=== PATIENT | female | born 1965 | race African-American/Black ===

== ENCOUNTER → 2017-02-02 | Outpatient (CLI) | payer BC ==
[~2017-02-02] MED LIST: ALBUAER19 INH; AMOX500C3 PO; BENZ100C84 PO; BUPR-79 PO; CETI10TA99 PO; CYAN100048 INH; ESCI1TAB10 PO; FLUT0.15; OXYC-57 PO; PANT40TA PO; TRAZ100T29 PO; TRIATAB3 PO
[2017-02-02 11:15] LABS: ALT/SGPT 21 U/L (12-78); AST/SGOT 10 U/L (15-37); BLOOD UREA NITROGEN 16 mg/dl (7-18); BUN/CREATININE RATIO 18.8 (10-20); CALCIUM 8.2 mg/dl (8.5-10.1); CARBON DIOXIDE 28 mmol/L (21-32); CHLORIDE 109 mmol/L (98-107); CREATININE 0.85 mg/dl (0.60-1.20); GLUCOSE 77 mg/dl (70-99); POTASSIUM 3.5 mmol/L (3.5-5.1); SODIUM 144 mmol/L (136-145)
[2017-02-02 11:18] LABS: ALB/GLOB RATIO 0.9 (0.9-2); ALKALINE PHOSPHATASE 149 U/L (45-117)
[2017-02-02 12:00] LABS: ESTIMATED AVERAGE GLUCOSE 126 mg/dl; HA1C FLAG Normal (Normal)
== END | disposition home or self-care (01) ==
LOC: C.LABBC 08:21
PROVIDERS: ATTEND Physician Assistant
DX: R73.09 Other abnormal glucose (principal)

== ENCOUNTER → 2017-04-25 | Outpatient (CLI) | payer BC ==
[~2017-04-25] MED LIST changes: -OXYC-57 PO
--- NOTE | 2017-04-26 13:27 | MAMMOGRAPHY REPORT ---
BILATERAL DIGITAL SCREENING MAMMOGRAM TOMOSYNTHESIS WITH CAD: 04/25/2017 CLINICAL HISTORY: Routine screening. Patient has no complaints. TECHNIQUE: Breast tomosynthesis in addition to standard 2D mammography was performed. Current study was also evaluated with a Computer Aided Detection (CAD) system. COMPARISON: Comparison is made to exams dated: 03/28/2016 mammogram, 10/01/2014 mammogram, and 2012 mammogram - [facility]. BREAST COMPOSITION: There are scattered areas of fibroglandular density in both breasts. FINDINGS: No suspicious masses, calcifications, or areas of architectural distortion are noted in ei ther breast. There has been no significant interval change compared to prior exams. IMPRESSION: ACR BI-RADS CATEGORY 1: NEGATIVE There is no mammographic evidence of malignancy. A 1 year screening mammogram is recommended. The pa tient will receive written notification of the results. Approximately 10% of breast cancers are not detected with mammography. A negative mammographic report should not delay biopsy if a clinically suggestive mass is present. Isabelle Aranda M.D. ah/:04/25/2017 16:22:36 Ex Assistant/Program Director: Linnea CASH(Bertram)(Sarmad)(BD), [facility] letter sent: Normal 1/2 BI-RADS Code: ACR BI-RADS Category 1: Negative
== END | disposition home or self-care (01) ==
LOC: C.MAMM 15:14
PROVIDERS: ATTEND Obstetrics & Gynecology
DX: Z12.31 Encounter for screening mammogram for malignant neoplasm of breast (principal)

== ENCOUNTER → 2017-06-12 | Outpatient (CLI) | payer BC ==
[2017-06-12 10:02] LABS: ESTIMATED AVERAGE GLUCOSE 120 mg/dl; HA1C FLAG Normal (Normal)
[2017-06-12 10:12] LABS: ALT/SGPT 16 U/L (12-78); AST/SGOT 8 U/L (15-37); BLOOD UREA NITROGEN 11 mg/dl (7-18); BUN/CREATININE RATIO 13.7 (10-20); CALCIUM 8.2 mg/dl (8.5-10.1); CARBON DIOXIDE 29 mmol/L (21-32); CHLORIDE 109 mmol/L (98-107); CHOLESTEROL 151 mg/dl (0-200); CREATININE 0.81 mg/dl (0.60-1.20); GLUCOSE 80 mg/dl (70-99); POTASSIUM 3.6 mmol/L (3.5-5.1); SODIUM 140 mmol/L (136-145)
[2017-06-12 10:20] LABS: ALKALINE PHOSPHATASE 183 U/L (45-117); CHOLESTEROL/HDL RATIO 2.8; HDL CHOLESTEROL 54 mg/dl; LDL CHOLESTEROL CALCULATED 84 mg/dl; TRIGLYCERIDES 63 mg/dl (0-150); URIC ACID 3.6 mg/dl (2.6-7.2); VERY LOW DENSITY LIPOPROT CALC 13 mg/dl
[2017-06-12 10:53] LABS: LYME DISEASE AB IGG NEG (NEG); LYME DISEASE AB IGM NEG (NEG)
== END | disposition home or self-care (01) ==
LOC: C.LAB1850 08:17
PROVIDERS: ATTEND Internal Medicine
DX: R73.09 Other abnormal glucose (principal); R53.83 Other fatigue; E53.8 Deficiency of other specified B group vitamins; E55.9 Vitamin D deficiency, unspecified; F41.8 Other specified anxiety disorders; M25.562 Pain in left knee

== ENCOUNTER → 2017-07-29 | Outpatient (CLI) | payer BC | END | disposition home or self-care (01) | LOC: C.PAPS 14:02 | PROVIDERS: ATTEND Obstetrics & Gynecology | DX: Z01.419 Encounter for gynecological examination (general) (routine) without abnormal findings (principal) ==

== ENCOUNTER 2020-09-15 06:09 | Observation (INO) ==
--- NOTE | 2020-08-05 15:45 | PAT Medication Instructions ---
Medication Instructions Date of Service August 05, 2020 Home Medications Medication Instructions Recorded albuterol sulfate 90 mcg/actuation 1 puffs INH Q6H PRN #6.7 gm 02/26/20 aerosol inhaler cetirizine 10 mg tablet 10 mg PO QAM diclofenac sodium 1 % topical gel See Rx Instructions TOPICAL BID PRN fluticasone propionate 50 mcg/actuation nasal spray,suspension 2 sprays INTNAS QAM albuterol sulfate 90 mcg/actuation aerosol inhaler 1 puffs INH Q6H PRN sertraline 100 mg tablet 250 mg PO QAM biotin 5 mg PO QAM cyanocobalamin-cobamamide [B12] 1 randa SUBLINGUAL QAM dextroamphetamine-amphetamine [Adderall XR] 10 mg PO QAM ferrous fumarate-vitamin C [Iron with C] 1 tab PO QAM furosemide 40 mg PO QAM PRN lisinopril 20 mg PO QAM multivitamin 1 cap PO QAM pantoprazole 40 mg PO QAM DO NOT take the morning of surgery cetirizine 10 mg tablet 10 mg PO QAM diclofenac sodium 1 % topical gel See Rx Instructions TOPICAL BID PRN (do not put near sugical site) biotin 5 mg PO QAM cyanocobalamin-cobamamide [B12] 1 randa SUBLINGUAL QAM dextroamphetamine-amphetamine [Adderall XR] 10 mg PO QAM ferrous fumarate-vitamin C [Iron with C] 1 tab PO QAM furosemide 40 mg PO QAM PRN lisinopril 20 mg PO QAM multivitamin 1 cap PO QAM Take morning of surgery With a small sip of water, OTHERWISE NOTHING TO EAT OR DRINK AFTER MIDNIGHT: fluticasone propionate 50 mcg/actuation nasal spray,suspension 2 sprays INTNAS QAM albuterol sulfate 90 mcg/actuation aerosol inhaler 1 puffs INH Q6H PRN (if needed) sertraline 100 mg tablet 250 mg PO QAM pantoprazole 40 mg PO QAM Other Notes If you have any questions please call us at [phone] or [phone] or [phone] or [phone]
--- NOTE | 2020-08-08 13:14 | Anesthesiology Consultation ---
Date of Service August 08, 2020 Assessment & Plan (1) Encounter for pre-operative examination: COVID Status: As of 08/08 assessment, patient denies travel to endemic area, known exposure/sick contacts, or symptoms of COVID19. Patient instructed that they and their household members must follow strict social distancing guidelines, wear a mask in public and avoid travel for 14 days prior to surgery. Preoperative COVID19 testing to be completed prior to surgery per surgeon's a rrangements. Patient made aware to self-isolate as much as possible between COVID testing and surgery. Bariatric surgeon is in [facility], patient has a follow-up appt scheduled for 08/12. To get COVID-19 testing on 08/18, OK to proceed. Chart Review Chart Review: Acceptable Risk for Surgery and Patient seen in Pre Admission Testing Teaching & Discussion Instructed NPO after midnight before surgery, except medications with 15 cc of water. Medication instructions provided according to the PAT guidelines. History Surgery Operation Date: 08/25/20 07:00 Proposed Procedures p Left Total Knee Arthroplasty - Seth Shepard MD Operation Date: 09/29/20 07:00 Proposed Procedures p Total Knee Arthroplasty - Seth Shepard MD Height/Weight Height: 5 ft 8 in Weight: 117.9 kg Allergies Allergy/AdvReac Type Severity Reaction Status Date / Time Penicillins Allergy Mild UNKNOWN Verified 08/05/20 12:03 enalapril Allergy Unknown DYSPEPSIA Verified 07/14/20 07:07 nickel Allergy Blister Verified 08/05/20 12:04 metformin AdvReac Mild Diarrhea Verified 07/14/20 07:07 Medications Home Medications Medication Instructions Recorded Confirmed Last Taken cetirizine 10 mg tablet 10 mg PO QAM 04/29/19 08/05/20 Unknown diclofenac sodium 1 % topical gel See Rx Instructions TOPICAL BID 06/25/19 08/05/20 Unknown PRN gm fluticasone propionate 50 2 sprays INTNAS QAM gm 06/25/19 08/05/20 Unknown mcg/actuation nasal spray,suspension albuterol sulfate 90 mcg/actuation 1 puffs INH Q6H PRN #6.7 gm 02/26/20 08/05/20 Unknown aerosol inhaler sertraline 100 mg tablet 250 mg PO QAM tab 07/24/20 08/05/20 Unknown biotin 5 mg PO QAM 08/05/20 08/05/20 Unknown cyanocobalamin-cobamamide [B12] 1 randa SUBLINGUAL QAM 08/05/20 08/05/20 Unknown dextroamphetamine-amphetamine 10 mg PO QAM 08/05/20 08/05/20 Unknown [Adderall XR] ferrous fumarate-vitamin C [Iron 1 tab PO QAM 08/05/20 08/05/20 Unknown with C] furosemide 40 mg PO QAM PRN 08/05/20 08/05/20 Unknown lisinopril 20 mg PO QAM 08/05/20 08/05/20 Unknown multivitamin 1 cap PO QAM 08/05/20 08/05/20 Unknown pantoprazole 40 mg PO QAM 08/05/20 08/05/20 Unknown Past Medical History Medical History Acid reflux ADHD Allergic rhinitis Anemia resolved Asthma Uses albuterol inhaler avg ~ 2x per month, no daily inhaler use. Asymmetrical hearing loss of right ear Chronic obstructive pulmonary disease Chronic sinusitis Claustrophobia Depression with anxiety Hypertension Insomnia Lumbar degenerative disc disease Morbid obesity Peripheral vascular disease Sleep apnea Diagnosed, has lot about 50#s and is no longer an issue. does not use CPAP Vitamin B12 deficiency Vitamin D deficiency Exercise / Class Metabolic Activity II 4-5 Yardwork/Stairs/Walk up hill Past Family History Family History Aunt Brain cancer Breast cancer Mother Stroke Father Kidney cancer, primary, with metastasis from kidney to other site Lung cancer Denies family history of Colon cancer Ovarian cancer Past Surgical History Surgical History H/O nasal polypectomy History of colposcopy History of cryosurgery for cervix History of hysteroscopy with endometrial ablation Hx of colonoscopy Hx of endoscopy EGD S/P S/P cataract surgery both S/P cholecystectomy S/P gastric surgery gastric bypass, then a revision and a lap band 10/2019 Past Anesthesia History No Hx of Anesthesia Complications and No Family Hx of Anesthesia Complications History of PONV No Hx of PONV and No Hx of Motion Sickness Social History Smoking Status: Never smoker Hx Alcohol Use: Yes (occasionally ) Alcohol type: wine alcohol intake frequency: holidays/special occasions only Hx Substance Use: No substance use type: does not use Review of Systems Pt denies any recent chest pain, shortness of breath, palpitations, cough, fever, URI, or uncontrolled acid reflux (controlled with meds). Physical Exam Vital Signs BP: 122/85 P: 109bpm SPO2: 95% RA T: 98.4 F R: 16 Constitutional + obese ENMT Mouth: + dental restorations (implants lower R molars); no chipped teeth and no loose teeth Thyromental Distance: > or= 3.5 Finger Breadths Mallampati Class: I Neck normal visual inspection; neck extension not limited Respiratory normal respiratory effort Auscultation: lungs clear to auscultation bilaterally Cardiovascular Rate/Rhythm: regular rhythm and + tachycardic Heart Sounds: no murmur Vessels: no carotid bruit Extremities: no edema Testing Laboratory Results 08/08/20 13:35 08/08/20 13:35 PT 9.9 Seconds (9.0-12.0) 08/08/20 13:35 INR 0.9 (0.9-1.1) 08/08/20 13:35 APTT 25.3 Seconds (21.0-31.0) 08/08/20 13:35 Hemoglobin A1c 5.6 % (4.5-5.6) 08/08/20 13:35 Blood Type O Positive 08/08/20 13:35 Antibody Screen NEGATIVE 08/08/20 13:35 Electrocardiogram Date: 10/06/19 Findings: + NSR @ (80bpm with sinus arrhythmia) Chest X-Ray Date: 10/06/19 Findings: + NAD Pulmonary Function Test Date: 07/02/19 Spirometry shows mild reduction in forced vital capacity and FEV1 with a normal FEV1/FVC ratio. This would suggest mild restriction. Repeat study done following bronchodilator showed significant improvement in small airways function only. Advise clinical correlation. Lung volumes are normal. Diffusion is 75% predicted which is low normal.
[2020-08-08 15:43] LABS: Basophils # (auto) 0.04 K/uL (0-0.2); Basophils % (auto) 0.4 %; Eosinophils # (auto) 0.69 K/uL (0-0.5); Eosinophils % (auto) 7.4 %; Hematocrit (blood only) 41.3 % (37-47); Immature Granulocytes # (auto) 0.01 K/uL (0.00-0.02); Immature Granulocytes % (auto) 0.1 %; Lymphocytes # (auto) 2.81 K/uL (1.2-3.4); Lymphocytes % (auto) 30.1 %; Mean Corpuscular Hemoglobin 28.9 pg (25-34); Mean Corpuscular Hgb Conc 31.5 g/dL (32-36); Mean Corpuscular Volume 91.8 fL (80-100); Mean Platelet Volume 9.5 fL (7.4-10.4); Monocytes # (auto) 0.79 K/uL (0.11-0.59); Monocytes % (auto) 8.5 %; Neutrophils # (auto) 4.99 K/uL (1.4-6.5); Neutrophils % (auto) 53.5 %; Platelet Count 480 K/uL (130-400); RDW Coefficient of Variation 14.1 % (11.5-14.5); RDW Standard Deviation 47.9 fL (36.4-46.3); White Blood Count 9.33 K/uL (4.8-10.8)
[2020-08-08 15:52] LABS: Albumin Level 3.4 gm/dl (3.4-5.0); BUN Creatinine Ratio 26.9 (10-20); Calcium 8.7 mg/dl (8.5-10.1); Creatinine Clr Calc Pharmacy 110.1 ml/min; Est GFR (Non-African American) 86.3; Potassium 3.8 mmol/L (3.5-5.1)
[2020-08-08 15:54] LABS: INR 0.9 (0.9-1.1); Partial Thromboplastin Ratio 0.9; Partial Thromboplastin Time 25.3 Seconds (21.0-31.0); Prothrombin Time 9.9 Seconds (9.0-12.0)
[2020-08-09 05:30] LABS: Estimated Average Glucose 114 mg/dl; Hemoglobin A1C 5.6 % (4.5-5.6)
--- NOTE | 2020-09-09 08:38 | History & Physical Report ---
Date of Service September 09, 2020 Assessment & Plan (1) Primary osteoarthritis of left knee: Treatment options discussed. She has failed conservative measures as above. Risks, benefits and alternatives to surgery including but not limited to infection, DVT, pain, stiffness, need for revision surgery, damage to blood vessels, damage to nerves, PE, , were discussed with the patient and they wish to proceed. Plan will be for left total knee arthroplasty at [facility] on 09/15/20. Will plan on aspirin 81mg BID x 1 mo post op for DVT prophylaxis. She will likely plan on HHPT post discharge from the hospital. All questions answered. She will follow up post operatively. History of Present Illness Chief Complaint: Left knee pain Primary Care Provider: Lety Fonseca MD 55year old female with PMHx significant for HTN, anxiety/depression, asthma, and GERD presents with long standing history of left knee pain. She has pain int erfering with her daily activity. She has failed conservative measures including injections, therapy, and anti-inflammatories. She would like to proceed with knee replacement surgery. Patient denies headaches, sweats, fevers, chills, double vision, blurred vision, cough, sore throat, dysphagia, chest pain, sob, wheezing, n/v/d/c, numbness, tingling, fatigue, urinary symptoms, mood disorders. ROS positive for left knee pain and stiffness. Allergies Allergy/AdvReac Type Severity Reaction Status Date / Time Penicillins Allergy Mild UNKNOWN Verified 08/11/20 10:40 enalapril Allergy Unknown DYSPEPSIA Verified 08/11/20 10:40 nickel Allergy Blister Verified 08/11/20 10:40 metformin AdvReac Mild Diarrhea Verified 08/11/20 10:40 Home Medications Home Medications Medication Instructions Recorded Confirmed Type cetirizine 10 mg tablet 10 mg PO QAM 04/29/19 08/11/20 History diclofenac sodium 1 % topical gel See Rx Instructions TOPICAL BID 06/25/19 08/11/20 History PRN gm fluticasone propionate 50 2 sprays INTNAS QAM gm 06/25/19 08/11/20 History mcg/actuation nasal spray,suspension sertraline 100 mg tablet 250 mg PO QAM tab 07/24/20 08/11/20 History biotin 5 mg PO QAM 08/05/20 08/11/20 History cyanocobalamin-cobamamide [B12] 1 randa SUBLINGUAL QAM 08/05/20 08/11/20 History dextroamphetamine-amphetamine 10 mg PO QAM 08/05/20 08/11/20 History [Adderall XR] ferrous fumarate-vitamin C [Iron 1 tab PO QAM 08/05/20 08/11/20 History with C] multivitamin 1 cap PO QAM 08/05/20 08/11/20 History albuterol sulfate 90 mcg/actuation 2 puff INH Q6H PRN #6.7 g 08/11/20 08/11/20 Rx aerosol inhaler furosemide 40 mg tablet 40 mg PO QAM PRN #30 tab 08/11/20 08/11/20 Rx lisinopril 20 mg tablet 20 mg PO QAM #30 tab 08/11/20 08/11/20 Rx pantoprazole 40 mg tablet,delayed 40 mg PO QAM #30 tab 08/11/20 08/11/20 Rx release Past Med/Surg History Medical History (Updated 08/12/20 @ 13:00 by German Bennett) Acid reflux ADHD Allergic rhinitis Anemia resolved Asthma Uses albuterol inhaler avg ~ 2x per month, no daily inhaler use. Asymmetrical hearing loss of right ear Chronic obstructive pulmonary disease Chronic sinusitis Claustrophobia Depression with anxiety Hypertension Insomnia Lumbar degenerative disc disease Morbid obesity Peripheral vascular disease Sleep apnea Diagnosed, has lot about 50#s and is no longer an issue. does not use CPAP Vitamin B12 deficiency Vitamin D deficiency Surgical History H/O nasal polypectomy History of colposcopy History of cryosurgery for cervix History of hysteroscopy with endometrial ablation Hx of colonoscopy Hx of endoscopy EGD S/P S/P cataract surgery both S/P cholecystectomy S/P gastric surgery gastric bypass, then a revision and a lap band 10/2019 Family History Aunt Brain cancer Breast cancer Mother Stroke Father Kidney cancer, primary, with metastasis from kidney to other site Lung cancer Denies family history of Colon cancer Ovarian cancer Social History Smoking Status: Never smoker Second Hand Exposure: No; Hx Alcohol Use: Yes (occasionally ) Alcohol type: wine Hx Substance Use: No Preferred Language: [place]de[place] Communication Ability: Effective Visual Impairment: No Limitations Hearing Ability: Normal Beliefs That Will Affect Care: None marital status: Current Living Situation: Family Feels Safe at Home: Yes Safety Concerns: Feels Safe At This Time Physical Activity Frequency: Other Physical Activity Frequency Comment: limted activity due to knee pain Seatbelt Use: always Assistive Devices: Glasses Review of Systems All systems reviewed & are unremarkable except as noted in HPI & below Physical Exam Constitutional: well developed and well nourished; no acute distress Eyes: PERRL, conjunctivae normal, anicteric sclerae ENMT: external ear and nose normal, oropharynx normal Neck: trachea midline, no thyromegaly Respiratory: normal respiratory effort, lungs clear to auscultation Cardiovascular: RRR, no murmur, no edema Musculoskeletal: Left knee: Medial joint line and medial patellar tenderness, stable to valgus and varus. Positive Johnathan's. Mild effusion. ROM 0-120 Skin: no rashes, warm and dry Neurologic: patellar DTR's 2+ bilat, sensation intact Psychiatric: A+Ox3, euthymic affect Results & Data ([facility]) Laboratory Results Lab Results 08/08/20 08/08/20 08/08/20 Range/Units 13:35 13:35 13:35 WBC 9.33 (4.8-10.8) K/uL RBC 4.50 (4.2-5.4) M/uL Hgb 13.0 (12.0-16.0) g/dL Hct 41.3 (37-47) % MCV 91.8 (80-100) fL MCH 28.9 (25-34) pg MCHC 31.5 L (32-36) g/dL RDW Std Deviation 47.9 H (36.4-46.3) fL RDW Coeff of Taylor 14.1 (11.5-14.5) % Plt Count 480 H (130-400) K/uL MPV 9.5 (7.4-10.4) fL Immature Gran % (Auto) 0.1 % Neut % (Auto) 53.5 % Lymph % (Auto) 30.1 % [place] % (Auto) 8.5 % Eos % (Auto) 7.4 % Baso % (Auto) 0.4 % Neut # (Auto) 4.99 (1.4-6.5) K/uL Lymph # (Auto) 2.81 (1.2-3.4) K/uL [place] # (Auto) 0.79 H (0.11-0.59) K/uL Eos # (Auto) 0.69 H (0-0.5) K/uL Baso # (Auto) 0.04 (0-0.2) K/uL Immature Gran # (Auto) 0.01 (0.00-0.02) K/uL PT 9.9 (9.0-12.0) Seconds INR 0.9 (0.9-1.1) APTT 25.3 (21.0-31.0) Seconds PTT Ratio 0.9 Sodium (136-145) mmol/L Potassium (3.5-5.1) mmol/L Chloride (98-107) mmol/L Carbon Dioxide (21-32) mmol/L Anion Gap (3-11) BUN (7-18) mg/dl Creatinine (0.6-1.2) mg/dl Est Cr Clr Drug Dosing ml/min Est GFR ( Amer) Est GFR (Non-Af Amer) BUN/Creatinine Ratio (10-20) Glucose (70-99) mg/dl Estimat Average Glucose mg/dl Hemoglobin A1c (4.5-5.6) % Calcium (8.5-10.1) mg/dl Albumin (3.4-5.0) gm/dl Blood Type O Positive Antibody Screen NEGATIVE 08/08/20 08/08/20 Range/Units 13:35 13:35 WBC (4.8-10.8) K/uL RBC (4.2-5.4) M/uL Hgb (12.0-16.0) g/dL Hct (37-47) % MCV (80-100) fL MCH (25-34) pg MCHC (32-36) g/dL RDW Std Deviation (36.4-46.3) fL RDW Coeff of Taylor (11.5-14.5) % Plt Count (130-400) K/uL MPV (7.4-10.4) fL Immature Gran % (Auto) % Neut % (Auto) % Lymph % (Auto) % [place] % (Auto) % Eos % (Auto) % Baso % (Auto) % Neut # (Auto) (1.4-6.5) K/uL Lymph # (Auto) (1.2-3.4) K/uL [place] # (Auto) (0.11-0.59) K/uL Eos # (Auto) (0-0.5) K/uL Baso # (Auto) (0-0.2) K/uL Immature Gran # (Auto) (0.00-0.02) K/uL PT (9.0-12.0) Seconds INR (0.9-1.1) APTT (21.0-31.0) Seconds PTT Ratio Sodium 144 (136-145) mmol/L Potassium 3.8 (3.5-5.1) mmol/L Chloride 108 H (98-107) mmol/L Carbon Dioxide 28 (21-32) mmol/L Anion Gap 8.0 (3-11) BUN 21 H (7-18) mg/dl Creatinine 0.77 (0.6-1.2) mg/dl Est Cr Clr Drug Dosing 110.1 ml/min Est GFR ( Amer) 100.0 Est GFR (Non-Af Amer) 86.3 BUN/Creatinine Ratio 26.9 H (10-20) Glucose 74 (70-99) mg/dl Estimat Average Glucose 114 mg/dl Hemoglobin A1c 5.6 (4.5-5.6) % Calcium 8.7 (8.5-10.1) mg/dl Albumin 3.4 (3.4-5.0) gm/dl Blood Type Antibody Screen Diagnostic Findings Left knee radiographs: Significant joint space narrowing medial compartment with periarticular osteophyte formation and subchondral sclerosis.
[~2020-09-15 06:09] MED LIST changes: +ACETAMINOPHEN 500 MG TAB PO SCH; -ALBUAER19 INH; -AMOX500C3 PO; -BENZ100C84 PO; +BUPIVACAINE 0.25% 30 ML VIAL ONE; +BUPIVACAINE 0.5 % 5 MG/1 ML PF 10ML VIAL ONE; -BUPR-79 PO; -CETI10TA99 PO; -CYAN100048 INH; +CeleBREX 200 MG CAP PO SCH; -ESCI1TAB10 PO; +FAMOTIDINE 20 MG TAB PO SCH; -FLUT0.15; +GABAPENTIN 600 MG DOSE PO SCH; +LR 500ML BOLUS, THEN 15ML/HR IV SCH; +METOCLOPRAMIDE HCL 10 MG TABLET PO SCH; -PANT40TA PO; +ROPIVACAINE 0.5% HCL/PF 150 MG, BUPIVACAINE 0.5% MPF 30 ML, EPINEPHrine 30MG/30ML (OR U... INSTIL SCH; +TRANEXAMIC ACID 1,000 MG **IV Intra-op IV SCH; +TRANEXAMIC ACID 1,000 MG **IV Pre-op IV SCH; -TRAZ100T29 PO; -TRIATAB3 PO; +ceFAZolin 2000MG 2,000 MG/15 ML SYR IV SCH; +dexAMETHasone 4 MG TAB PO SCH; +oxyCODONE HCL 10 MG TABCR (OxyCONTIN) PO SCH
[2020-09-15] MEDS ORDERED: BUPIVACAINE 0.5 % 5 MG/1 ML PF 10ML VIAL ONE (06:24)
[2020-09-15] MEDS ORDERED: DEXAMETHASONE SOD INJ 4 MG/ML VIAL ONE (06:24)
[2020-09-15] MEDS ORDERED: BUPIVACAINE/EPINEPHRINE 0.25% 1:200,000 30 ML VIAL ONE (06:24)
[2020-09-15] MEDS ORDERED: MIDAZOLAM HCL 1 MG/ML 2ML VIAL ONE (06:53)
[2020-09-15] MEDS ORDERED: KETAMINE 50 MG/5 ML SYRINGE ONE (06:53)
[2020-09-15] MEDS ORDERED: BACITRACIN INJ 50,000 UNIT VIAL ONE (07:59)
[2020-09-15] MEDS ORDERED: ORTHO JOINT ANESTHETIC ONE (07:59)
--- NOTE | 2020-09-15 08:07 | History & Physical Bridge Note ---
Date of Service September 15, 2020 History & Physical Bridge Note I have examined the patient, reviewed the History & Physical and in the interval since the performance of the History & Physical I have noted the following changes of clinical significance: no changes noted
[2020-09-15] MEDS ORDERED: ceFAZolin 2,000 MG/15 ML IV PUSH IV ONE (08:09)
[2020-09-15] MEDS ORDERED: Nursing to Pharmacy Communication SCH (08:15)
[2020-09-15] MEDS ORDERED: ONDANSETRON INJ 2 MG/ML 2 ML VIAL ONE (08:43)
[2020-09-15] MEDS ORDERED: GLYCOPYRROLATE 0.2 MG/ML VIAL ONE (08:43)
[2020-09-15] MEDS ORDERED: LIDOCAINE HCL 2% 2 ML VIAL/AMP(20MG/ML) INFIL ONE (08:43)
[2020-09-15] MEDS ORDERED: PROPOFOL IV EMULSION 10 MG/ML 20 ML VIAL IV ONE (08:43)
[2020-09-15] MEDS ORDERED: ePHEDrine sulfate 50 MG/ML AMP IV PRN (08:59)
[2020-09-15] MEDS ORDERED: ATROPINE SULFATE 0.1 MG/ML 10ML SYR IV PRN (08:59)
[2020-09-15] MEDS ORDERED: ONDANSETRON INJ 2 MG/ML 2 ML VIAL IV PRN ×2 (08:59→12:05)
[2020-09-15] MEDS ORDERED: fentaNYL citrate 100 MCG/2 ML VIAL IV PRN (08:59)
--- NOTE | 2020-09-15 10:09 | Operative Report ---
Post Operative Report Pre & Post Diagnosis Operation Date: 09/15/20 08:15 Pre-Op Diagnosis: Left Knee Osteoarthritis Post-Op Diagnosis: Left Knee Osteoarthritis Operation Date: 09/29/20 07:00 <No data on this case meets the specified criteria> I identified the patient and participated in the time-out.: Yes Procedure Operation Date: 09/15/20 08:15 Actual Procedures p Left Total Knee Arthroplasty(Left) - Seth Shepard MD Surgeon Seth Shepard MD Analyst Programmer German Bennett PA-C Estimated Blood Loss 20 Findings Consistent with Post-Op Diagnosis Specimens Bone and tissue Drains None Anesthesia Type MAC Spinal Regional Complications none Disposition Accompanied Patient To Recovery: No Disposition: Recovery Room Indications The patient is a 55-year-old female with longstanding arthritic change of left knee. She has tricompartmental arthritic changes. Near [id number] medial compartment. She has failed conservative measures including injection, anti- inflammatories, rehab. She wishes to proceed with a left total knee arthroplasty Description of Procedure Risks benefits and alternatives of surgery including but not limited to infection, DVT, pain, stiffness, need for surgery, damage to blood vessels, damage to nerves or risks of anesthesia were discussed with the patient and they wished to proceed. The patient was identified and the laterality was confirmed and marked. They received a preoperative antibiotic as well as a spinal anesthetic and an abductor canal block. A well-padded tourniquet was applied and then the limb was prepped and draped in standard manner with ChloraPrep. The limb was exsanguinated and the tourniquet was inflated. I made a standard anterior incision. I sharply incised the skin then utilized Bovie electrocautery to achieve hemostasis. I made a medial parapatellar arthrotomy and mobilized the patella laterally. I then excised the anterior horns of the medial and lateral meniscus as well as the infrapatellar fat pad. I elevated a portion of the MCL off of the tibia. I then pinned into place a patient-matched distal femoral cutting guide and made my distal femoral resection. I then pinned into place the 5 in 1 femoral cutting guide. I made my anterior, posterior and chamfer cuts. I then excised the cruciates and the remaining portions of the menisci. I then pinned into place a patient- matched tibial cutting guide and made my tibial resection. I then pinned into place the tibial plate a utilizing alignment eunice to confirm rotation. I then cut for the post. Utilizing a lamina accounts receivable supervisor and I then removed posterior osteophytes off the femur. I then placed a trial femur into position and cut for the trochlear component. I then sequentially trialed to size the polyethylene until there was good soft tissue balancing and range of motion. I then prepared the patella with a lisa ehand cut utilizing sagittal saw. I sized and drilled for the patella. There was some lateral tracking to the patella. A small lateral release was required. All the trial components were removed. The deep tissues were anesthetized with an ortho mix solution. Then with Simplex HV with gentamicin cement, I cemented my definitive components. Definitive components, Mendoza and Nephew Ulisesney 2: Femur 5 Tibia 4 Poly 13 constrained Patella 32 oval A betadine soak was performed. The arthrotomy was closed with interrupted #1 Vicryl suture subcutaneous tissue was closed with interrupted 2-0 Vicryl suture. The skin was closed with with irvin. An Acticoat and Merry dressing were placed. Sterile dressings were applied. All needle and sponge counts were correct at the end of the procedure patient was transferred to the PACU in stable condition without apparent complication. The PA-C was necessary for assistance with procedure for assistance in positioning, prepping, draping, retraction and closure. I attest to the content of the Intraoperative Record and any orders documented therein. Any exceptions are noted below.
--- NOTE | 2020-09-15 11:29 | XRay Report ---
LEFT KNEE 2 VIEWS History: Left total knee arthroplasty. Degenerative arthritis. Postop. FINDINGS: The patient is status post a left total knee arthroplasty. The hardware is intact. No fract ure or dislocation. Skin irvin are in place. IMPRESSION: Left total knee arthroplasty. No evidence for hardware complication. ACT 112: Negative or not required by law. Electronically signed by: Joe Ojeda M.D. 09/15/2020 11:27 AM
--- NOTE | 2020-09-15 12:01 | Anesthesiology Progress Note ---
Date of Service September 15, 2020 Anesthesia Post Procedure Vital Signs Vital Signs: Temp Pulse Pulse Resp BP BP Pulse Ox 09/15/20 11:34 36.9 C 67 18 116/75 97 09/15/20 11:25 36.9 C 66 16 113/71 94 09/15/20 11:15 36.9 C 66 16 115/68 98 09/15/20 11:05 36.9 C 90 19 121/80 94 09/15/20 10:55 93 H 19 122/75 100 09/15/20 10:48 36.2 C L 96 H 16 117/66 100 09/15/20 07:23 36.9 C 96 H 20 127/77 97 09/15/20 06:44 36.9 C 101 H 20 130/95 95 Pain Intensity Right Knee: Pain Intensity: 3 Transfer of Care Handoff Completed per policy Notes Mental Status: alert / awake / arousable Patient Amnestic to Procedure: Yes Nausea / Vomiting: adequately controlled Pain: adequately controlled Airway Patency, RR, SpO2: stable & adequate BP & HR: stable & adequate Hydration State: stable & adequate Neuraxial Anesthesia: was administered and sensory block is resolving Anesthetic Complications: no major complications apparent and Pt Satisfied with anesthetic care
[2020-09-15] MEDS ORDERED: MAGNESIUM HYDROXIDE SUSP 30 ML UDC PO PRN (12:05)
[2020-09-15] MEDS ORDERED: METOCLOPRAMIDE HCL INJ 5 MG/ML 2 ML VIAL IV PRN (12:05)
[2020-09-15] MEDS ORDERED: HYDROmorphone INJ 0.5 MG/0.5 ML SYR IV PRN (12:05)
[2020-09-15] MEDS ORDERED: FUROSEMIDE 40 MG TAB PO PRN (12:05)
[2020-09-15] MEDS ORDERED: ALBUTEROL HFA 8 GM INHALER INH PRN (12:05)
[2020-09-15] MEDS ORDERED: bisacodyL 10 MG SUPP PR PRN (12:05)
[2020-09-15] MEDS ORDERED: NALOXONE HCL 0.4 MG/1 ML VIAL/CARP IV PRN (12:05)
[2020-09-15] MEDS: SODIUM CHLORIDE 0.9% 1000ML 1,000 ML IV SCH ×2 (13:33→23:39)
[2020-09-15] MEDS: ACETAMINOPHEN 500 MG TAB PO SCH ×2 (13:35→21:15)
[2020-09-15] MEDS: ceFAZolin 2000MG 2,000 MG/15 ML SYR IV SCH ×2 (16:45→23:40)
[2020-09-15] MEDS: oxyCODONE HCL IR 5 MG TAB (IMMEDIATE RELEASE) PO PRN ×2 (19:22→21:14)
[2020-09-15] MEDS ORDERED: SENNA 8.6 MG TAB PO SCH (21:00)
[2020-09-15] MEDS: DOCUSATE SODIUM 100 MG CAP PO SCH (21:15)
[2020-09-15] MEDS: CeleBREX 200 MG CAP PO SCH (21:15)
[2020-09-15] MEDS: ASPIRIN 81 MG ECTAB PO SCH (21:16)
[2020-09-16] MEDS: ACETAMINOPHEN 500 MG TAB PO SCH (06:04)
[2020-09-16 07:10] LABS: Hematocrit (blood only) 36.6 % (37-47); Hemoglobin 11.3 g/dL (12.0-16.0); Mean Corpuscular Hemoglobin 29.2 pg (25-34); Mean Corpuscular Hgb Conc 30.9 g/dL (32-36); Mean Corpuscular Volume 94.6 fL (80-100); Mean Platelet Volume 8.9 fL (7.4-10.4); Platelet Count 396 K/uL (130-400); RDW Standard Deviation 47.6 fL (36.4-46.3); Red Blood Count 3.87 M/uL (4.2-5.4); White Blood Count 13.19 K/uL (4.8-10.8)
[2020-09-16 07:37] LABS: BUN Creatinine Ratio 29.5 (10-20); Calcium 8.6 mg/dl (8.5-10.1); Creatinine Clr Calc Pharmacy 102.1 ml/min; Est GFR (African American) 91.4; Est GFR (Non-African American) 78.8; Potassium 4.4 mmol/L (3.5-5.1)
--- NOTE | 2020-09-16 07:55 | Orthopedic Progress Note ---
Date of Service September 16, 2020 Assessment & Plan (1) Primary osteoarthritis of left knee: POD#1 left TKA -PT/OT -Pain management -DVT prophylaxis-ASA 81mg BID, SCDs, TEDs -AM labs-hemoglobin at 11.3 from 13 preop, kidney function normal -D/C planning-home with home health PT later today after PT Admission and Anticipated Discharge Date Admission Date: September 15, 2020 Subjective POD# 1 left TKA. Doing well, pain well controlled. Denies chest pain, sob, dizziness, headache, fever, chills, n/v/d. Review of Systems Review of Systems: All systems reviewed & are unremarkable except as noted in HPI & below Physical Exam Physical Exam: Left knee dressing is c/d/i, toes are mobile with good dorsiflexion. No calf tenderness. Distally n/v status and sensation are intact. Constitutional: well developed and well nourished; no acute distress Results & Data ([facility]) Vital Signs (Past 12 Hours) Vital Signs Temp Pulse Resp BP Pulse Ox 09/16/20 07:36 36.6 C 81 18 135/87 100 09/16/20 02:35 36.7 C 79 16 117/72 98
[2020-09-16] MEDS ORDERED: DEXTROAMPHETAMINE/AMPHETAMINE ER 10 MG CAP PO SCH ×3 (08:00→09:00)
[2020-09-16] MEDS: CeleBREX 200 MG CAP PO SCH (08:52)
[2020-09-16] MEDS: oxyCODONE HCL IR 5 MG TAB (IMMEDIATE RELEASE) PO PRN (08:52)
[2020-09-16] MEDS: DOCUSATE SODIUM 100 MG CAP PO SCH (08:52)
[2020-09-16] MEDS: ASPIRIN 81 MG ECTAB PO SCH (08:52)
[2020-09-16] MEDS ORDERED: FLUTICASONE PROPIONATE NA SPR 16 GM BTL SCH (09:00)
[2020-09-16] MEDS ORDERED: NON-FORMULARY MEDICATION (Ferrous Fumarate-Vitamin C 200 mg (66 mg iron)-125 mg Tablet) PO SCH (09:00)
[2020-09-16] MEDS ORDERED: NON-FORMULARY MEDICATION (Biotin 5 mg Tablet) PO SCH (09:00)
[2020-09-16] MEDS ORDERED: CETIRIZINE HCL 10 MG TABLET PO SCH (09:00)
[2020-09-16] MEDS ORDERED: MULTIVITAMIN TAB PO SCH ×2 (09:00)
[2020-09-16] MEDS ORDERED: NON-FORMULARY MEDICATION (Cyanocobalamin-Cobamamide [B12] 5,000-100 mcg Lozenge) SL SCH (09:00)
[2020-09-16] MEDS ORDERED: PANTOprazole 40 MG TAB PO SCH (09:00)
[2020-09-16] MEDS ORDERED: lisinopril 20 MG TAB PO SCH (09:00)
[2020-09-16] MEDS ORDERED: FERROUS FUMARATE/ASCORBIC ACID 65 MG CAPCR PO SCH (09:00)
[2020-09-16] MEDS ORDERED: SERTRALINE HCL 50 MG TABLET PO SCH (09:00)
--- NOTE | 2020-09-16 14:54 | Discharge Summary ---
Date of Service September 16, 2020 Admission HPI Per Admitting Provider 55year old female with PMHx significant for HTN, anxiety/depression, asthma, and GERD presents with long standing history of left knee pain. She has pain interfering with her daily activity. She has failed conservative measures including injections, therapy, and anti-inflammatories. She would like to proceed with knee replacement surgery. Patient denies headaches, sweats, fevers, chills, double vision, blurred vision, cough, sore throat, dysphagia, chest pain, sob, wheezing, n/v/d/c, numbness, tingling, fatigue, urinary symptoms, mood disorders. ROS positive for left knee pain and stiffness. Admission Exam Per Admitting Provider Constitutional: well developed and well nourished; no acute distress Eyes: PERRL, conjunctivae normal, anicteric sclerae ENMT: external ear and nose normal, oropharynx normal Neck: trachea midline, no thyromegaly Respiratory: normal respiratory effort, lungs clear to auscultation Cardiovascular: RRR, no murmur, no edema Musculoskeletal: Left knee: Medial joint line and medial patellar tenderness, stable to valgus and varus. Positive Johnathan's. Mild effusion. ROM 0-120 Skin: no rashes, warm and dry Neurologic: patellar DTR's 2+ bilat, sensation intact Psychiatric: A+Ox3, euthymic affect Principal Diagnosis Left knee osteoarthritis Discharge Exam Constitutional well developed and well nourished; no acute distress Eyes PERRL, conjunctivae normal, anicteric sclerae ENMT external ear and nose normal, oropharynx normal Neck trachea midline, no thyromegaly Respiratory normal respiratory effort, lungs clear to auscultation Cardiovascular RRR, no murmur, no edema Skin no rashes, warm and dry Neurologic patellar DTR's 2+ bilat, sensation intact Psychiatric A+Ox3, euthymic affect Discharge Data Allergies Allergy/AdvReac Type Severity Reaction Status Date / Time Penicillins Allergy Mild UNKNOWN Verified 09/15/20 06:38 enalapril Allergy Unknown DYSPEPSIA Verified 09/15/20 06:38 nickel Allergy Blister Verified 09/15/20 06:38 metformin AdvReac Mild Diarrhea Verified 09/15/20 06:38 Consultations 09/15/20 12:05 Consult Case Management - Discharge Planning Routine Procedures Performed Operation Date: 09/15/20 08:15 Actual Procedures p Left Total Knee Arthroplasty(Left) - Seth Shepard MD Operation Date: 09/29/20 07:00 <No data on this case meets the specified criteria> Ordered Studies 08/25/20 05:00 US - OR guided needle placemen Routine 09/15/20 05:00 US - OR guided needle placemen Routine Hospital Course (1) Primary osteoarthritis of left knee: Patient presented for same day admission following left total knee arthroplasty on 09/15/20. She tolerated procedure well. The Patient had an uneventful hospital course. Post-operatively, his/her activity was progressed and well tolerated. They participated in PT with ambulation distance of 225 feet. ROM of operative knee reached 90 degrees. Labs remained stable- lowest hemoglobin recorded: 11.3. Pain controlled on oral medications. Please refer to daily progress notes and PT notes for complete details. After exam on 09/16/20, patient was felt to be stable for discharge home with home health PT. Patient will f/u in the office in about 2 weeks for further evaluation including x-rays and incision check, sooner if having any issues or concerns. POD#1 left TKA -PT/OT -Pain management -DVT prophylaxis-ASA 81mg BID, SCDs, TEDs -AM labs-hemoglobin at 11.3 from 13 preop, kidney function normal -D/C planning-home with home health PT later today after PT Total Time Total Time Spent Total Time Spent (In Minutes): 20 Discharge Plan Discharge Items Patient Disposition: Home - Home Health Services Reason For Visit: Left Knee Osteoarthritis Discharge Diagnosis: Left knee osteoarthritis Activity: Per Instructions section Non-emergency contact: Surgeon Call non-emergency contact if: you have any medication questions, your pain is not controlled, your pain is worsening, your pain is concerning for you, you have a fever, your temperature is above 101, your wound has increased redness and your wound has increased drainage Follow-up/Referrals: Lety Fonseca MD [Primary Care Provider] - Diet: Regular Addtl Attending Provider Instructions: ACTIVITY RECOMMENDATIONS: SELF CARE INSTRUCTIONS AFTER TOTAL KNEE REPLACEMENT A. You may need to continue a physical therapy program after discharge from the hospital. There are several options available to you. Your doctor will assist you in selecting the best one for you. 1. An out-patient facility 2 to 3 times a week for therapy or home therapy. 2. Continue working on all exercises taught to you in the hospital. Your goals should be to increase bending of your knee to 90 degrees and beyond and to fully straighten your knee. B. You may progress at your own pace from walking with a walker or crutches to a cane; then to no assistive devices. C. Make walking a part of your daily routine. Be up as much as comfortable with rest periods throughout the day. Rest with leg elevation is very important. Use the ice wrap frequently for the first 3-4 weeks. D. There are no restrictions on activities. 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 E. Wear the long elastic stockings (ALBERTA hose) 20 hours a day for 2 weeks after surgery. They can be removed several times a day for laundering and for a bath. F. You may shower, no tub baths until cleared by your doctor. SPECIAL CARE INSTRUCTIONS: VERY IMPORTANT TO READ AND REVIEW A. There are a few signs you need to watch for after you are home. Call [facility] [address] if you notice any of the followin. Increased severe knee pain. Some pain is expected especially when you exercise. 2. Increased swelling in your leg or knee; pain or swelling of the calf muscle in either lower leg. 3. Any fluid drainage from the incision. 4. Shortness of breath or chest pain. B. Please call [facility] at if you have any concerns or questions about your operation or recovery. The doctor or his nurse will return your call promptly. C. You must take antibiotics before dental work, bladder, bowel or other surgery. Your doctor will provide you with a permanent care to carry describing this precaution. IMPORTANT: * REMEMBER TO TAKE ASPIRIN, 81 MG, TWICE DAILY FOR 4 WEEKS UNLESS OTHERWISE DIRECTED. THIS IS YOUR BLOOD THINNER. * HIGH RISK PATIENTS MAY BE PRESCRIBED A STRONGER BLOOD THINNER. THIS WILL BE PROVIDED AT DISCHARGE. * CALL IF INCREASED PAIN, REDNESS, DRAINAGE OR FEVER GREATER THAT 101. * WEAR ALBERTA HOSE 20 HOURS PER DAY FOR 2 WEEKS. This is a large suction dressing covering your incision. This will help pull any excess drainage from the wound and allow your incision to heal properly. You may shower with this if you can keep the unit outside of the shower. If any bleeding or leakage is noted please call your doctor's office. This will remain on your incision for 7 days and then should be removed. This can be done yourself or by the home nursing staff if applicable. The entire unit is disposa ble once removed. Once removed, keep incision clean and dry. If redness or drainage is noted, please call your surgeon. FOLLOW UP VISIT: If appointment is not already scheduled: Please call [facility] [address] to make a follow-up appointment for 2 weeks after your surgery at . Pending Studies at Discharge: No Stand-Alone Forms: My [facility] [employer] Soulstice [employer]de[employer], Smoking Cessation Medications and DC Order Prescriptions: New celecoxib [Celebrex] 200 mg Capsule 200 mg PO BID Qty: 60 RF: 0 aspirin 81 mg Tablet,Delayed Release (Dr/Ec) 81 mg PO BID Qty: 60 RF: 0 acetaminophen 500 mg Tablet 1,000 mg PO Q8 Qty: 60 RF: 0 oxycodone 5 mg Tablet 5 - 10 mg PO .Q4h-6h MDD 6 PRN (Reason: pain) Qty: 30 RF: 0 Continued sertraline 100 mg tablet 250 mg PO QAM RF: 0 Adacel(Tdap Adolesn/Adult)(PF) 2 Lf-(2.5-5-3-5 mcg)-5Lf/0.5 mL syringe 0.5 ml IM ONCE Qty: 0.5 RF: 0 furosemide 40 mg tablet 40 mg PO QAM PRN (Reason: Edema) Qty: 30 RF: 3 lisinopril 20 mg tablet 20 mg PO QAM Qty: 30 RF: 3 pantoprazole 40 mg tablet,delayed release (DR/EC) 40 mg PO QAM Qty: 30 RF: 3 albuterol sulfate [Ventolin HFA] 90 mcg/actuation HFA aerosol inhaler 2 puff INH Q6H PRN (Reason: shortness of breath or wheezing) Qty: 6.7 RF: 3 cetirizine [Zyrtec] 10 mg tablet 10 mg PO QAM RF: 0 fluticasone propionate 50 mcg/actuation spray,suspension 2 sprays INTNAS QAM RF: 0 ferrous fumarate-vitamin C 200 mg (66 mg iron)-125 mg Tablet 1 tab PO QAM RF: 0 dextroamphetamine-amphetamine [Adderall XR] 10 mg Capsule,Extended Release 24hr 10 mg PO QAM RF: 0 multivitamin Capsule 1 cap PO QAM RF: 0 biotin 5 mg Tablet 5 mg PO QAM RF: 0 B12 5,000-100 mcg Lozenge 1 randa SUBLINGUAL QAM RF: 0 Discontinued diclofenac sodium 1 % gel See Rx Instructions topical BID PRN (Reason: Pain) RF: 0 Discharge Orders: Discharge Order (Routine); Ordered 09/16/20 Ordered By: German Bennett Admission Data Admit Date/Time: 09/15/20 10:51 Attending Provider: Seth Shepard Admit Provider: Seth Shepard Primary Care Provider: Lety Fonseca V. Other Providers: [facility],Home Healthcare Other Interventions: Discharge Summary Assessment (RN) Last Done: 09/16/20 10:44
--- NOTE | 2020-09-16 16:31 | Anesthesiology Progress Note ---
Date of Service September 16, 2020 late entry; pt seen this am at 0745 Anesthesia Post Procedure Vital Signs Vital Signs: Temp Pulse Resp BP Pulse Ox 09/16/20 10:44 36.6 C 81 18 135/87 100 09/16/20 07:36 36.6 C 81 18 135/87 100 09/16/20 02:35 36.7 C 79 16 117/72 98 09/15/20 19:25 36.8 C 73 16 122/71 96 Pain Intensity Left Knee: Pain Intensity: 3 Notes Mental Status: alert / awake / arousable and participated in evaluation Nausea / Vomiting: adequately controlled Pain: adequately controlled Airway Patency, RR, SpO2: stable & adequate BP & HR: stable & adequate Hydration State: stable & adequate Neuraxial Anesthesia: was administered and sensory block resolved Anesthetic Complications: no major complications apparent and Pt Satisfied with anesthetic care
== END 2020-09-16 12:05 | disposition home health service (06) ==
LOC: ASU 06:09 → 3E 06:09

== ENCOUNTER 2021-12-09 09:45 | Inpatient (IN) ==
[2021-12-09] MEDS ORDERED: SODIUM CHLORIDE 0.9% 1000ML 2,000 ML IV ONE (10:05)
[2021-12-09] MEDS ORDERED: ACETAMINOPHEN 500 MG TAB PO STA (10:05)
--- NOTE | 2021-12-09 10:11 | Emergency Department Note ---
Impression & Plan Post-operative infection, Sepsis ED Provider Note Name: MIRA PITTS Age: 56 Sex: F Arrives Via: Walk-In Informant: Patient ED Provider: Marco Alexandra MD Chief Complaint: Infection Impression: As Per Impressions Above Medical Decision Makin-year-old female with history of asthma, ADD, depression, hypertension, morbid obesity, vascular disease, GERD who had a right hip replacement 1 month ago. She has been ill for the last week with viral-like illness increasing right hip pain and redness over the last few days. She discussed with her orthopedic team who advised she come to the ER for further evaluation. On exam she has moderate induration redness and fluctuance of the right hip incision. She does not have significant pain with range of motion of the hip and does not appear to have a septic hip joint at this time. She does have tachycardia, fever and she appears unwell at this time. For this reason sepsis work-up initiated along with Covid testing. Covid testing is negative at this time. Labs do reveal an elevated white blood cell count but fortunately normal lactic acid. She is not hypotensive either. She does not require a full 30 mL/kg IV fluid bolus at this time. Given the findings a CT of the hip was done with IV contrast which reveals a large area of cellulitis and an underlying fluid collection of roughly 12 cm that is not down to the joint. Fluid collection unclear whether seroma or abscess. I did discuss with radiology who notes they are not currently in house today. Orthopedics reconsulted and they requested patient be admitted to medicine however medicine request that patient be admitted to orthopedic service and they are happy to consult. Throughout this patient was monitored closely and given the concern for sepsis with need to be aggressive she was given cefepime and daptomycin IV follow blood cultures being obtained. She was given IV fluids for resuscitation though I will note is not in shock at this time. Prior Medical Record and Triage/Nursing Notes reviewed by Me Additional history obtained from chart Differentials:Sepsis, septic shock, infected hip joint, cellulitis, abscess, Covid amongst other pathologies Vital Signs: reviewed and remarkable for tachycardia, fever Interventions: Saline lock, normal saline 2 L IV, cefepime 2 g IV, daptomycin IV, Tylenol p.o., Dilaudid IV Labs:Reviewed and remarkable for WBC 15 Imaging:See CT of right hip and chest x-ray below EKG:Per My Interpretation: Indication Sepsis: Sinus Tach 119 bpm, qtc 436. No Ectopy. No Ischemia. Compared to EKG 10/16/21, no significant changes. Cardiac/Tele Monitoring: Cardiac Monitoring: An Order was placed for continuous cardiac monitoring. The monitor shows a rate of 110 with a sinus tach rhythm. Consults:Dr Jhon Zhang, Dr Saez Radiology, Dr Rox MARKHAM Hospitalist Plan: Disposition:Hospitalization. Condition: Good History of Present Illness:56-year-old female arrives for evaluation of illness. Patient notes she has been ill for the last week or so. She initially had body aches fevers, chills, nausea and generalized malaise/fatigue. She has had minimal appetite and has been eating over the last week. She states she took her Covid test several days ago and it was questionably positive. Over the last few days her right hip has been increasingly bothering her over which she had replaced about 1 month ago. She started noticing the last few days it was swelling and turning red. Today the hip is much more uncomfortable and she noted it was swelling out and is diffusely red around it. She states significant pain with trying to ambulate. Pain is better with rest. She took Tylenol last night with mild improvement. She did have a hip replacement in [place] by Dr. Parker about 1 month ago. She has had no other issues postop. She states she has chronic leg swelling and has no specific swelling of one leg versus the other and has no specific calf discomfort. She denies any syncope, chest pain, shortness of breath, headache, sore throat, back pain, abdominal arleth n, rashes other than right hip redness, urinary/bowel symptoms no other symptoms. She denies any previous issues with infections. She previously had a left knee replacement without difficulty. ROS: See above HPI for pertinent positives & negatives. A total of 10 systems reviewed and were otherwise negative. Past Medical History:See Below Past Surgical History:See Below Family History:See Below Social History:See Below Home Medications:See Below Allergies:Enalapril, nickel, penicillins, Metformin Vitals:Blood Pressure: 155/91, Pulse 102, RR 20, T 38.1C, O2 97% on RA Physical Exam: GENERAL: Patient is tired/dehydrated and uncomfortable appearing and in moderate distress. EYES: No scleral icterus, unremarkable pupils. ENT: Mucous membranes dry, no nasal congestion. NECK: No masses appreciated, nomeningismus, trachea is midline. RESPIRATORY: No dyspnea. Clear to auscultation and equal bilaterally. No wheeze, no rhonchi. CARDIOVASCULAR: Tachy.No murmurs, rubs, gallops appreciated. GASTROINTESTINAL: Abdomen soft, non-tender, no peritonitis.Bowel sounds positive.No masses appreciated. BACK: No midline tenderness, no CVA tenderness EXTREMITIES: Right hip incision with swelling, induration, redness and TTP. There is questionable fluctuance. There is small suture sticking out mid incision. Otherwise normal motion all extremities, no cyanosis, no edema. NEUROLOGIC: Alert and oriented, no acute motor or sensory deficits, no focal weakness, cranial nerves grossly intact. SKIN: No rash, no jaundice, no diaphoresis. PSYCH: Appropriate GCS: 15 ED Course: Times/Reassessments: Patient evaluated on arrival and high concern for sepsis. Sepsis work-up initiated and patient started with IV fluids. Broad-spectrum antibiotics given as it would be quite some time before abscess would be able to be drained. Patient reevaluated many times throughout her stay and stable but requiring periodic pain medications which were given. Marco Alexandra MD Past Med/Surg History Medical History Acid reflux ADHD Allergic rhinitis Asthma Asymmetrical hearing loss of right ear Chronic obstructive pulmonary disease Chronic sinusitis Depression with anxiety Hypertension Insomnia Lumbar degenerative disc disease Peripheral vascular disease Sleep apnea Vitamin B12 deficiency Vitamin D deficiency Surgical History H/O nasal polypectomy History of colposcopy History of cryosurgery for cervix History of esophagogastroduodenoscopy (EGD) History of hysteroscopy with endometrial ablation History of left knee replacement (~09/15/20) Hx of colonoscopy S/P S/P cataract surgery both S/P cholecystectomy S/P gastric surgery gastric bypass, then a revision and a lap band 10/2019 Family History Aunt Brain cancer Breast cancer Mother Stroke Father Lung cancer Kidney cancer, primary, with metastasis from kidney to other site Other No family history of adverse response to anesthesia Denies family history of Colon cancer Ovarian cancer Social History Smoking Status: Never smoker Second Hand Exposure: No; Hx Alcohol Use: Yes Alcohol type: wine Hx Substance Use: No Preferred Language: Armenian Communication Ability: Effective Visual Impairment: No Limitations Hearing Ability: Normal Clinical Liaison Required: No Beliefs That Will Affect Care: None marital status: Current Living Situation: Family Current Living Situation Comment: Lives with daughter current occupational status: employed Feels Safe at Home: Yes Dental Care, Regularly: Yes Physical Activity Frequency: 1-2 Times per Week Physical Activity Frequency Comment: Physical therapy for left knee replacement Seatbelt Use: always Sunscreen Use: Yes Assistive Devices: Glasses Allergies Allergies Allergy/AdvReac Type Severity Reaction Status Date / Time enalapril Allergy Intermediate DYSPEPSIA Verified 12/09/21 12:02 nickel Allergy Mild Blister Verified 12/09/21 12:02 Penicillins Allergy Mild UNKNOWN, Verified 12/09/21 12:02 in childhood metformin AdvReac Mild Diarrhea Verified 12/09/21 12:02 Home Meds Home Medications Medication Instructions Recorded Confirmed cetirizine 10 mg tablet (Zyrtec) 10 mg PO QAM 04/29/19 12/09/21 fluticasone propionate 50 2 sprays INTNAS QAM PRN gm 06/25/19 12/09/21 mcg/actuation nasal spray,suspension acetaminophen 500 mg tablet 1,000 mg PO BID tab 11/09/21 12/09/21 (Tylenol Extra Strength) aspirin 81 mg tablet,delayed 81 mg PO BID tab 11/09/21 12/09/21 release celecoxib 200 mg capsule (Celebrex) 200 mg PO BID 11/09/21 12/09/21 buspirone 15 mg tablet 7.5 mg PO BID 12/09/21 12/09/21 duloxetine 20 mg capsule,delayed 20 mg PO QDL 12/09/21 12/09/21 release Previous Rx's Medication Instructions Recorded pantoprazole 40 mg tablet,delayed 40 mg PO QAM #30 tab 08/11/20 release albuterol sulfate 90 mcg/actuation 2 puff INH Q6H PRN #6.7 g 06/15/21 aerosol inhaler (Ventolin HFA) tramadol 50 mg tablet 50 mg PO BID PRN #7 tab 08/20/21 lisinopril 20 mg tablet 20 mg PO QAM #90 tab 10/23/21 Results & Data (ED) Vital Signs Vital Signs - 24 hr 12/09/21 09:47 12/09/21 10:29 12/09/21 12:00 Temperature 38.1 C H Temperature Source Oral Pulse Rate 102 H Pulse Rate [Apical] 70 105 H Respiratory Rate 20 18 18 Blood Pressure 155/91 H Blood Pressure [Left Arm] 159/100 H 127/78 Blood Pressure Mean 112 Blood Pressure Mean [Left Arm] 119 94 Blood Pressure Position [Left Arm] Semi-fowlers Pulse Oximetry 97 98 97 Oxygen Delivery Method Room Air Room Air Sepsis Recent Fever Within 48 Hours Yes Sepsis New/Unexplained Change in Mental Status N/A Sepsis Action Taken by Nursing No Action Required 12/09/21 14:00 Temperature Temperature Source Pulse Rate Pulse Rate [Apical] 87 Respiratory Rate 22 Blood Pressure Blood Pressure [Left Arm] 100/63 Blood Pressure Mean Blood Pressure Mean [Left Arm] 75 Blood Pressure Position [Left Arm] Pulse Oximetry 99 Oxygen Delivery Method Room Air Sepsis Recent Fever Within 48 Hours Sepsis New/Unexplained Change in Mental Status Sepsis Action Taken by Nursing Laboratory Data Result diagrams: 12/10/21 05:42 12/09/21 10:13 Lab Results 12/09/21 12/09/21 12/09/21 Range/Units 10:13 10:13 10:13 WBC 14.91 H (4.8-10.8) K/uL RBC 3.64 L (4.2-5.4) M/uL Hgb 9.4 L (12.0-16.0) g/dL Hct 31.3 L (37-47) % MCV 86.0 (80-100) fL MCH 25.8 (25-34) pg MCHC 30.0 L (32-36) g/dL RDW Std Deviation 51.1 H (36.4-46.3) fL RDW Coeff of Taylor 16.0 H (11.5-14.5) % Plt Count 547 H (130-400) K/uL MPV 8.6 (7.4-10.4) fL Immature Gran % (Auto) 0.3 % Neut % (Auto) 75.2 % Lymph % (Auto) 15.6 % Stonewall % (Auto) 6.3 % Eos % (Auto) 2.5 % Baso % (Auto) 0.1 % Neut # (Auto) 11.21 H (1.4-6.5) K/uL Lymph # (Auto) 2.32 (1.2-3.4) K/uL [place] # (Auto) 0.94 H (0.11-0.59) K/uL Eos # (Auto) 0.38 (0-0.5) K/uL Baso # (Auto) 0.02 (0-0.2) K/uL Immature Gran # (Auto) 0.04 H (0.00-0.02) K/uL ESR (0-30) mm/hr PT (9.0-12.0) Seconds INR (0.9-1.1) Sodium 138 (136-145) mmol/L Potassium 3.3 L (3.5-5.1) mmol/L Chloride 104 (98-107) mmol/L Carbon Dioxide 26 (21-32) mmol/L Anion Gap 8 (3-11) BUN 11 (6-23) mg/dl Creatinine 0.74 (0.6-1.2) mg/dl Est Cr Clr Drug Dosing 118.4 ml/min Est GFR ( Amer) 104.2 ml/min Est GFR (Non-Af Amer) 89.9 ml/min BUN/Creatinine Ratio 14.9 (10-20) Glucose 92 (70-99(Fasting)) mg/dl Lactate 1.5 (0.4-2.0) mmol/L Calcium 8.8 (8.5-10.1) mg/dl Magnesium 1.9 (1.7-2.4) mg/dl Total Bilirubin 0.5 (0.2-1.0) mg/dl Direct Bilirubin 0.1 (0-0.2) mg/dl AST 12 L (13-39) U/L ALT 9 (7-52) U/L Alkaline Phosphatase 154 H (34-104) U/L Troponin I < 0.03 (0-0.04) ng/ml C-Reactive Protein (0-0.5) mg/dl Total Protein 7.5 (6.0-8.3) gm/dl Albumin 3.8 (3.4-5.0) gm/dl Lipase 6 L (11-82) U/L Procalcitonin (0-0.5) ng/ml Urine Color Urine Appearance (Clear) Urine pH (4.5-7.5) Ur Specific Fillmore (1.000-1.030) Urine Protein (Negative) Urine Glucose (UA) (Negative) Urine Ketones (Negative) Urine Blood (Negative) Urine Nitrite (Negative) Urine Bilirubin (Negative) Urine Urobilinogen (Negative) Ur Leukocyte Esterase (Negative) Urine WBC (Auto) (0-5) /hpf Urine RBC (Auto) (0-4) /hpf U Hyaline Cast (Auto) (0-5) /lpf U Epithel Cells (Auto) (0-5) /lpf Urine Bacteria (Auto) (Negative) Ur Renal Epithelial Cell (0-5) /lpf Granular Casts (0) /lpf SARS-CoV-2, RNA, NAAT (NEGATIVE) 12/09/21 12/09/21 12/09/21 Range/Units 10:13 10:13 10:28 WBC (4.8-10.8) K/uL RBC (4.2-5.4) M/uL Hgb (12.0-16.0) g/dL Hct (37-47) % MCV (80-100) fL MCH (25-34) pg MCHC (32-36) g/dL RDW Std Deviation (36.4-46.3) fL RDW Coeff of Taylor (11.5-14.5) % Plt Count (130-400) K/uL MPV (7.4-10.4) fL Immature Gran % (Auto) % Neut % (Auto) % Lymph % (Auto) % Stonewall % (Auto) % Eos % (Auto) % Baso % (Auto) % Neut # (Auto) (1.4-6.5) K/uL Lymph # (Auto) (1.2-3.4) K/uL Stonewall # (Auto) (0.11-0.59) K/uL Eos # (Auto) (0-0.5) K/uL Baso # (Auto) (0-0.2) K/uL Immature Gran # (Auto) (0.00-0.02) K/uL ESR (0-30) mm/hr PT 10.8 (9.0-12.0) Seconds INR 1.1 (0.9-1.1) Sodium (136-145) mmol/L Potassium (3.5-5.1) mmol/L Chloride (98-107) mmol/L Carbon Dioxide (21-32) mmol/L Anion Gap (3-11) BUN (6-23) mg/dl Creatinine (0.6-1.2) mg/dl Est Cr Clr Drug Dosing ml/min Est GFR ( Amer) ml/min Est GFR (Non-Af Amer) ml/min BUN/Creatinine Ratio (10-20) Glucose (70-99(Fasting)) mg/dl Lactate (0.4-2.0) mmol/L Calcium (8.5-10.1) mg/dl Magnesium (1.7-2.4) mg/dl Total Bilirubin (0.2-1.0) mg/dl Direct Bilirubin (0-0.2) mg/dl AST (13-39) U/L ALT (7-52) U/L Alkaline Phosphatase (34-104) U/L Troponin I (0-0.04) ng/ml C-Reactive Protein (0-0.5) mg/dl Total Protein (6.0-8.3) gm/dl Albumin (3.4-5.0) gm/dl Lipase (11-82) U/L Procalcitonin 0.05 (0-0.5) ng/ml Urine Color Urine Appearance (Clear) Urine pH (4.5-7.5) Ur Specific [place] (1.000-1.030) Urine Protein (Negative) Urine Glucose (UA) (Negative) Urine Ketones (Negative) Urine Blood (Negative) Urine Nitrite (Negative) Urine Bilirubin (Negative) Urine Urobilinogen (Negative) Ur Leukocyte Esterase (Negative) Urine WBC (Auto) (0-5) /hpf Urine RBC (Auto) (0-4) /hpf U Hyaline Cast (Auto) (0-5) /lpf U Epithel Cells (Auto) (0-5) /lpf Urine Bacteria (Auto) (Negative) Ur Renal Epithelial Cell (0-5) /lpf Granular Casts (0) /lpf SARS-CoV-2, RNA, NAAT NEGATIVE (NEGATIVE) 12/09/21 12/09/21 12/09/21 Range/Units 11:44 11:44 11:48 WBC (4.8-10.8) K/uL RBC (4.2-5.4) M/uL Hgb (12.0-16.0) g/dL Hct (37-47) % MCV (80-100) fL MCH (25-34) pg MCHC (32-36) g/dL RDW Std Deviation (36.4-46.3) fL RDW Coeff of Taylor (11.5-14.5) % Plt Count (130-400) K/uL MPV (7.4-10.4) fL Immature Gran % (Auto) % Neut % (Auto) % Lymph % (Auto) % Stonewall % (Auto) % Eos % (Auto) % Baso % (Auto) % Neut # (Auto) (1.4-6.5) K/uL Lymph # (Auto) (1.2-3.4) K/uL [place] # (Auto) (0.11-0.59) K/uL Eos # (Auto) (0-0.5) K/uL Baso # (Auto) (0-0.2) K/uL Immature Gran # (Auto) (0.00-0.02) K/uL ESR 15 (0-30) mm/hr PT (9.0-12.0) Seconds INR (0.9-1.1) Sodium (136-145) mmol/L Potassium (3.5-5.1) mmol/L Chloride (98-107) mmol/L Carbon Dioxide (21-32) mmol/L Anion Gap (3-11) BUN (6-23) mg/dl Creatinine (0.6-1.2) mg/dl Est Cr Clr Drug Dosing ml/min Est GFR ( Amer) ml/min Est GFR (Non-Af Amer) ml/min BUN/Creatinine Ratio (10-20) Glucose (70-99(Fasting)) mg/dl Lactate (0.4-2.0) mmol/L Calcium (8.5-10.1) mg/dl Magnesium (1.7-2.4) mg/dl Total Bilirubin (0.2-1.0) mg/dl Direct Bilirubin (0-0.2) mg/dl AST (13-39) U/L ALT (7-52) U/L Alkaline Phosphatase (34-104) U/L Troponin I (0-0.04) ng/ml C-Reactive Protein < 0.50 (0-0.5) mg/dl Total Protein (6.0-8.3) gm/dl Albumin (3.4-5.0) gm/dl Lipase (11-82) U/L Procalcitonin (0-0.5) ng/ml Urine Color Dark Yellow Urine Appearance Clear (Clear) Urine pH 6.0 (4.5-7.5) Ur Specific [place] > 1.045 H (1.000-1.030) Urine Protein 2+ H (Negative) Urine Glucose (UA) Negative (Negative) Urine Ketones Trace H (Negative) Urine Blood Negative (Negative) Urine Nitrite Negative (Negative) Urine Bilirubin 1+ H (Negative) Urine Urobilinogen Negative (Negative) Ur Leukocyte Esterase 1+ H (Negative) Urine WBC (Auto) 5-10 H (0-5) /hpf Urine RBC (Auto) 5-10 H (0-4) /hpf U Hyaline Cast (Auto) 10-30 H (0-5) /lpf U Epithel Cells (Auto) >30 H (0-5) /lpf Urine Bacteria (Auto) Negative (Negative) Ur Renal Epithelial Cell 0-5 (0-5) /lpf Granular Casts 10-20 H (0) /lpf SARS-CoV-2, RNA, NAAT (NEGATIVE) Administered Medications Acetaminophen (Acetaminophen 500 Mg Tab) 500 mg PO BID PREM Stop: 01/08/22 20:59 Last Admin: 12/09/21 21:25 Dose: 500 mg Documented by: [id number] Aspirin (Aspirin 81 Mg Ectab) 81 mg PO BID PREM Stop: 01/08/22 20:59 Last Admin: 12/09/21 21:24 Dose: 81 mg Documented by: [id number] Buspirone HCl (Buspirone 7.5 Mg Tab) 7.5 mg PO BID PREM Stop: 01/08/22 20:59 Last Admin: 12/09/21 21:24 Dose: 7.5 mg Documented by: [id number] Hydromorphone HCl (Hydromorphone Inj 1 Mg/Ml Syringe) 1 mg IV Q15M PRN PRN Reason: Pain Stop: 12/23/21 13:28 Last Admin: 12/09/21 21:23 Dose: 1 mg Documented by: [id number] Sodium Chloride (Nss 1000ml) 1,000 mls @ 70 mls/hr IV .[id number] [facility] Stop: 01/08/22 18:49 Last Admin: 12/09/21 20:51 Dose: 70 mls/hr Documented by: [id number] Discontinued Medications Acetaminophen (Acetaminophen 500 Mg Tab) 1,000 mg PO NOW STA Stop: 12/09/21 10:06 Last Admin: 12/09/21 10:25 Dose: 1,000 mg Documented by: [id number] Hydromorphone HCl (Hydromorphone Inj 0.5 Mg/0.5 Ml Syr) 0.5 mg IV NOW STA Stop: 12/09/21 13:05 Last Admin: 12/09/21 13:11 Dose: 0.5 mg Documented by: [id number] Hydromorphone HCl (Hydromorphone Inj 1 Mg/Ml Syringe) 1 mg IV NOW STA Stop: 12/09/21 13:30 Last Admin: 12/09/21 13:37 Dose: 1 mg Documented by: [id number] Sodium Chloride (Nss 1000ml) 2,000 mls @ 999 mls/hr IV .Q2H1M ONE Stop: 12/09/21 12:05 Last Infusion: 12/09/21 13:58 Dose: 0 mls/hr Documented by: [id number] Admin: 12/09/21 10:17 Dose: 999 mls/hr Documented by: [id number] Cefepime HCl (Maxipime) 2,000 mg in 20 mls @ 5 mls/min IV NOW STA; Protocol Stop: 12/09/21 11:52 Last Admin: 12/09/21 11:59 Dose: 5 mls/min Documented by: [id number] Daptomycin 525 mg/ Syringe 10.5 mls @ 5.25 mls/min IV NOW ONE; Protocol Stop: 12/09/21 11:50 Last Admin: 12/09/21 13:27 Dose: 5.25 mls/min Documented by: [id number] Cefazolin Sodium (Ancef 2000mg) 2,000 mg in 15 mls @ 2.5 mls/min IV Q8H PREM Stop: 12/16/21 17:29 Last Admin: 12/10/21 01:00 Dose: 2.5 mls/min Documented by: [id number] Admin: 12/09/21 17:11 Dose: 2.5 mls/min Documented by: [id number] Ioversol (Optiray 320 100ml) 95 ml IV ONCE ONE Stop: 12/09/21 11:36 Last Admin: 12/09/21 11:36 Dose: 95 ml Documented by: [id number] Potassium Chloride (Potassium Chloride Crtab 20 Meq Tabcr) 20 meq PO NOW STA Stop: 12/09/21 21:31 Last Admin: 12/09/21 21:43 Dose: 20 meq Documented by: [id number] Imaging Data Radiologist's Impression: Chest X-Ray 12/09/21 10:05 XR chest 1V portable HISTORY: 56 years-old Female sepsis, fever acute sepsis with fever COMPARISON: Chest radiograph 10/16/2021 TECHNIQUE: Portable AP view of the chest FINDINGS: The cardiomediastinal and hilar silhouettes are unchanged. No pneumothorax, pleural effusion, airspace consolidation or overt pulmonary edema. Mild degenerative changes of the shoulders and spine. IMPRESSION: No acute process. ACT 112: Negative or not required by law. The above report was generated using voice recognition software. It may contain grammatical, syntax or spelling errors. Electronically signed by: Joshua Saez M.D. 12/09/2021 10:[address] 12/09/21 11:16 CT hip RT w con HISTORY: 56 years-old Female post op infection acute right hip pain with soft tissue swelling. Prior right total joint arthroplasty approximately one month prior COMPARISON: None TECHNIQUE: Multiple axial CT images of the right hip were obtained following the intravenous administration of 95 mL Optiray 320. A dose lowering technique was used consistent with the principals of MURIEL. FINDINGS: No acute process of the imaged intrapelvic structures. Decompressed urinary bladder with wall thickening. Mildly enlarged right inguinal chain lymph nodes measure up to 11 mm. Partially imaged fluid collection with mild peripheral enhancement involves the deep lateral subcutaneous tissues of the right hip measuring over 12 cm in craniocaudal dimension and measuring up to 4.9 x 6.3 cm in AP and transverse dimensions. The margin of this collection abuts the lateral myofascial tensor fascia carlos. There is subcutaneous edema with associated skin thickening. Additionally, there is ill-defined decreased attenuation/heterogeneity within the proximal fibers of the rectus femoris/proximal tensor fascia carlos measuring up to 2.2 x 3.297 series 2. No joint effusion identified. No acute fracture, dislocation or opaque foreign body. Satisfactory alignment of the right hip total joint arthroplasty. No unexpected opaque foreign body. IMPRESSION: 1. Satisfactory alignment of the right hip total joint arthroplasty. No acute fracture or dislocation. 2. Cellulitis of the right upper thigh with partially imaged subcutaneous fluid collection measuring over 12 cm in length suggestive of a postoperative seroma versus abscess. 3. Ill-defined heterogeneity with decreased attenuation of the proximal rectus femoris muscle may reflect intramuscular hematoma, or myositis/developing intramuscular abscess. 4. No joint effusion identified. 5. Right inguinal chain adenopathy, likely reactive. ACT 112: Negative or not required by law. The above report was generated using voice recognition software. It may contain grammatical, syntax or spelling errors. Electronically signed by: Joshua Saez M.D. 12/09/2021 12:10 PM Discharge Plan Visit Data Chief Complaint: Infection, Wound Stated Complaint: INFECTED INCISION POST SURGERY ED Provider: Marco Alexandra Discharge Problem: Post-operative infection, Sepsis Patient Disposition: Admitted As Inpatient Discharge Instructions Interventions: ED Discharge Assessment Last Done: 12/09/21 19:00 Discharge Problem: Post-operative infection Qualifiers: Encounter type: initial encounter Postoperative infection type: deep incisional surgical site Qualified Code(s): T81.42XA - Infection following a procedure, deep incisional surgical site, initial encounter Sepsis Qualifiers: Sepsis type: sepsis due to unspecified organism Sepsis acute organ dysfunction status: without acute organ dysfunction Qualified Code(s): A41.9 - Sepsis, unspecified organism
--- NOTE | 2021-12-09 10:34 | XRay Report ---
XR chest 1V portable HISTORY: 56 years-old Female sepsis, fever acute sepsis with fever COMPARISON: Chest radiograph 10/16/2021 TECHNIQUE: Portable AP view of the chest FINDINGS: The cardiomediastinal and hilar silhouettes are unchanged. No pneumothorax, pleural effusion, airspac e consolidation or overt pulmonary edema. Mild degenerative changes of the shoulders and spine. IMPRESSION: No acute process. ACT 112: Negative or not required by law. The above report was generated using voice recognition software. It may contain grammatical, syntax o r spelling errors. Electronically signed by: Joshua Saez M.D. 12/09/2021 10:32 AM
[2021-12-09 10:39] LABS: INR 1.1 (0.9-1.1); Prothrombin Time 10.8 Seconds (9.0-12.0)
[2021-12-09 10:42] LABS: Basophils # (auto) 0.02 K/uL (0-0.2); Basophils % (auto) 0.1 %; Eosinophils # (auto) 0.38 K/uL (0-0.5); Eosinophils % (auto) 2.5 %; Hematocrit (blood only) 31.3 % (37-47); Hemoglobin 9.4 g/dL (12.0-16.0); Immature Granulocytes # (auto) 0.04 K/uL (0.00-0.02); Immature Granulocytes % (auto) 0.3 %; Lymphocytes # (auto) 2.32 K/uL (1.2-3.4); Lymphocytes % (auto) 15.6 %; Mean Corpuscular Hemoglobin 25.8 pg (25-34); Mean Platelet Volume 8.6 fL (7.4-10.4); Monocytes # (auto) 0.94 K/uL (0.11-0.59); Monocytes % (auto) 6.3 %; Neutrophils # (auto) 11.21 K/uL (1.4-6.5); Neutrophils % (auto) 75.2 %; Platelet Count 547 K/uL (130-400); RDW Standard Deviation 51.1 fL (36.4-46.3); Red Blood Count 3.64 M/uL (4.2-5.4); White Blood Count 14.91 K/uL (4.8-10.8)
[2021-12-09 11:12] LABS: Troponin I < 0.03 ng/ml (0-0.04)
[2021-12-09 11:13] LABS: Alanine Aminotransferase 9 U/L (7-52); Albumin Level 3.8 gm/dl (3.4-5.0); Alkaline Phosphatase 154 U/L (34-104); Anion Gap 8 (3-11); Aspartate Aminotransferase 12 U/L (13-39); BUN Creatinine Ratio 14.9 (10-20); Bilirubin Direct 0.1 mg/dl (0-0.2); Bilirubin,Total 0.5 mg/dl (0.2-1.0); Blood Urea Nitrogen 11 mg/dl (6-23); Calcium 8.8 mg/dl (8.5-10.1); Carbon Dioxide 26 mmol/L (21-32); Chloride 104 mmol/L (98-107); Creatinine Clr Calc Pharmacy 118.4 ml/min; Est GFR (African American) 104.2 ml/min; Est GFR (Non-African American) 89.9 ml/min; Glucose 92 mg/dl (70-99(Fasting)); Lipase 6 U/L (11-82); Magnesium 1.9 mg/dl (1.7-2.4); Potassium 3.3 mmol/L (3.5-5.1); Sodium 138 mmol/L (136-145); Total Protein 7.5 gm/dl (6.0-8.3)
[2021-12-09] MEDS ORDERED: OPTIRAY 320 100ml IV ONE (11:35)
--- NOTE | 2021-12-09 11:41 | Electrocardiogram Report ---
Test Reason : Blood Pressure : / mmHG Vent. Rate : 119 BPM Atrial Rate : 119 BPM P-R Int : 122 ms QRS Dur : 068 ms QT Int : 310 ms P-R-T Axes : 027 042 098 degrees QTc Int : 436 ms Poor data quality, interpretation may be adversely affected Sinus tachycardia Possible Left atrial enlargement Nonspecific ST and T wave abnormality Abnormal ECG When compared with ECG of 16-OCT-2021 08:58, No significant change was found Confirmed by Jovan Cruz ([id number]) on 12/09/2021 11:40:26 AM Referred By: ED Confirmed By:Jovan Cruz
[2021-12-09] MEDS ORDERED: CEFEPIME 2,000 MG/20 ML VIAL IV STA (11:49)
[2021-12-09] MEDS ORDERED: DAPTOmycin 525 MG in SYRINGE 0 ML IV ONE (11:49)
[2021-12-09 12:04] LABS: Appearance Urine Clear (Clear); Bacteria Urine Automated Negative (Negative); Blood Urine Negative (Negative); Color Urine Dark Yellow; Epithelial Cell Urine Auto >30 /lpf (0-5); Glucose Urine UA Negative (Negative); Ketones Urine Trace (Negative); Leukocyte Esterase Urine 1+ (Negative); Nitrite Urine Negative (Negative); Protein Urine 2+ (Negative); Specific Gravity Urine > 1.045 (1.000-1.030); Urobilinogen Urine Negative (Negative)
[2021-12-09 12:07] LABS: Bilirubin Urine 1+ (Negative)
--- NOTE | 2021-12-09 12:11 | CT Scan Report ---
CT hip RT w con HISTORY: 56 years-old Female post op infection acute right hip pain with soft tissue swelling. Prior right total joint arthroplasty approximately one month prior COMPARISON: None TECHNIQUE: Multiple axial CT images of the right hip were obtained following the intravenous administ ration of 95 mL Optiray 320. A dose lowering technique was used consistent with the principals of LARRY ELLIOTT. FINDINGS: No acute process of the imaged intrapelvic structures. Decompressed urinary bladder with wall thicken ing. Mildly enlarged right inguinal chain lymph nodes measure up to 11 mm. Partially imaged fluid col lection with mild peripheral enhancement involves the deep lateral subcutaneous tissues of the right hip measuring over 12 cm in craniocaudal dimension and measuring up to 4.9 x 6.3 cm in AP and transve rse dimensions. The margin of this collection abuts the lateral myofascial tensor fascia carlos. There is subcutaneous edema with associated skin thickening. Additionally, there is ill-defined decreased a ttenuation/heterogeneity within the proximal fibers of the rectus femoris/proximal tensor fascia carlos measuring up to 2.2 x 3.297 series 2. No joint effusion identified. No acute fracture, dislocation or opaque foreign body. Satisfactory alignment of the right hip total joint arthroplasty. No unexpected opaque foreign body. IMPRESSION: 1. Satisfactory alignment of the right hip total joint arthroplasty. No acute fracture or dislocation . 2. Cellulitis of the right upper thigh with partially imaged subcutaneous fluid collection measuring over 12 cm in length suggestive of a postoperative seroma versus abscess. 3. Ill-defined heterogeneity with decreased attenuation of the proximal rectus femoris muscle may ref lect intramuscular hematoma, or myositis/developing intramuscular abscess. 4. No joint effusion identified. 5. Right inguinal chain adenopathy, likely reactive. ACT 112: Negative or not required by law. The above report was generated using voice recognition software. It may contain grammatical, syntax o r spelling errors. Electronically signed by: Joshua Saez M.D. 12/09/2021 12:10 PM
[2021-12-09 12:21] LABS: Renal Epithelial Cells Urine 0-5 /lpf (0-5)
[2021-12-09] MEDS ORDERED: HYDROmorphone INJ 0.5 MG/0.5 ML SYR IV STA (13:04)
[2021-12-09] MEDS ORDERED: HYDROmorphone INJ 1 MG/ML SYRINGE IV STA (13:29)
--- NOTE | 2021-12-09 16:09 | History & Physical Report ---
Date of Service December 09, 2021 Assessment & Plan (1) Post-operative infection: Plan: Patient is 1 mo s/p right SREE with concern for possible post operative infection. She has an elevated white count however her CRP and sed rate were normal. CT scan demonstrated a large subcutaneous fluid collection abscess vs seroma. Patient does have a cellulitis surrounding her incision possibly secondary to a reaction from the absorbable sutures as there was some suture material sticking out which was removed. Patient did receive a dose of Cefepime in the ED. Discussed with Dr. Ferreira. I elected to attempt to aspirate some of the fluid to send for culture. After appropriate verbal consent obtained, the area overlying her lateral hip posterior to her incision in area of no erythema was prepped and cleansed with alcohol and Betadine swabs and allowed to dry. I introduced an 18g spinal needle into her thigh until I reached the fluid collection and was able to aspirate about 55cc of yellow appearing fluid. Needle was removed and sterile bandage applied. The fluid did not appear infectious in etiology and was more consistent with a seroma. Will send for culture and gram stain. Patient admitted to our service. Will place patient on IV ancef pending culture results. Will recheck inflammatory markers in the morning. Consult medicine for medical management during admission. History of Present Illness Chief Complaint: Right hip pain Primary Care Provider: Lety Fonseca MD 56 year old female with PMHx significant for GERD, asthma, COPD, JONH, PVD, HTN who presented to the ED today with complaint of worsening right hip pain. Patient is well known to our practice. About 1 mo ago she underwent a right SREE at in [place] by Dr. Hal Parker. She had an uneventful post operative course.About a week ago patient started to feel ill. She has been having fevers and chills. She took an at home COVID test which was questionably positive. She then started to have increased right hip pain and pain with WB. She noticed redness and induration over the past couple of days. She presented to the ED and was noted to have a temp of 38.1 and elevated white count to 15k. CT scan was obtained demonstrating findings of cellulitis as well as a large fluid collection consistent with seroma vs abscess. We were asked to see the patient due to concern for infected right total hip. Her COVID test in ED was negative. Patient denies headaches, sweats, double vision, blurred vision, cough, sore throat, dysphagia, chest pain, sob, wheezing, n/v/d/c, numbness, tingling, fatigue, urinary symptoms, mood disorders. ROS positive for right hip pain and fever/chills. Allergies Allergy/AdvReac Type Severity Reaction Status Date / Time enalapril Allergy Intermediate DYSPEPSIA Verified 12/09/21 12:02 nickel Allergy Mild Blister Verified 12/09/21 12:02 Penicillins Allergy Mild UNKNOWN, Verified 12/09/21 12:02 in childhood metformin AdvReac Mild Diarrhea Verified 12/09/21 12:02 Home Medications Medication Instructions Recorded Confirmed Type cetirizine 10 mg tablet (Zyrtec) 10 mg PO QAM 04/29/19 12/09/21 History fluticasone propionate 50 2 sprays INTNAS QAM PRN gm 06/25/19 12/09/21 History mcg/actuation nasal spray,suspension pantoprazole 40 mg tablet,delayed 40 mg PO QAM #30 tab 08/11/20 12/09/21 Rx release albuterol sulfate 90 mcg/actuation 2 puff INH Q6H PRN #6.7 g 06/15/21 12/09/21 Rx aerosol inhaler (Ventolin HFA) tramadol 50 mg tablet 50 mg PO BID PRN #7 tab 08/20/21 12/09/21 Rx lisinopril 20 mg tablet 20 mg PO QAM #90 tab 10/23/21 12/09/21 Rx acetaminophen 500 mg tablet 1,000 mg PO BID tab 11/09/21 12/09/21 History (Tylenol Extra Strength) aspirin 81 mg tablet,delayed 81 mg PO BID tab 11/09/21 12/09/21 History release celecoxib 200 mg capsule (Celebrex) 200 mg PO BID 11/09/21 12/09/21 History buspirone 15 mg tablet 7.5 mg PO BID 12/09/21 12/09/21 History duloxetine 20 mg capsule,delayed 20 mg PO QDL 12/09/21 12/09/21 History release Past Med/Surg History Medical History Acid reflux ADHD Allergic rhinitis Asthma Asymmetrical hearing loss of right ear Chronic obstructive pulmonary disease Chronic sinusitis Depression with anxiety Hypertension Insomnia Lumbar degenerative disc disease Peripheral vascular disease Sleep apnea Vitamin B12 deficiency Vitamin D deficiency Surgical History H/O nasal polypectomy History of colposcopy History of cryosurgery History of esophagogastroduodenoscopy (EGD) History of hysteroscopy History of left knee replacement (~09/15/20) Hx of colonoscopy S/P S/P cataract surgery S/P cholecystectomy S/P gastric surgery Family History Aunt Brain cancer Breast cancer Mother Stroke Father Lung cancer Kidney cancer, primary, with metastasis from kidney to other site Other No family history of adverse response to anesthesia Denies family history of Colon cancer Ovarian cancer Social History Smoking Status: Never smoker Second Hand Exposure: No; Hx Alcohol Use: Yes Alcohol type: wine Hx Substance Use: No Preferred Language: Algerian Communication Ability: Effective Visual Impairment: No Limitations Hearing Ability: Normal 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 Beliefs That Will Affect Care: None marital status: Current Living Situation: Family Current Living Situation Comment: Lives with daughter current occupational status: employed Feels Safe at Home: Yes Dental Care, Regularly: Yes Physical Activity Frequency: 1-2 Times per Week Physical Activity Frequency Comment: Physical therapy for left knee replacement Seatbelt Use: always Sunscreen Use: Yes Assistive Devices: Glasses Review of Systems Review of Systems: All systems reviewed & are unremarkable except as noted in HPI & below Physical Exam Constitutional: well developed and well nourished; no acute distress Eyes: PERRL, conjunctivae normal, anicteric sclerae ENMT: external ear and nose normal, oropharynx normal Neck: trachea midline, no thyromegaly Respiratory: normal respiratory effort; no respiratory distress Cardiovascular: Rate/Rhythm: regular rate and regular rhythm Musculoskeletal: Right hip: Incision to right anterolateral aspect of hip with mild surrounding erythema. There is induration around incision. Proximal area of incision with skin irritation. No dehiscence. Areas of fluctuance noted surrounding surgical area. She is tender to palpation about the hip. She has relatively painfree passive ROM of her hip. Distally n/v status and sensation intact. No calf tenderness. Normal ROM of knee and ankle. There was suture material sticking out at the midportion of her incision which was removed by me. Suture material consistent with absorbable suture used during her skin closure. Skin: no rashes, warm and dry Neurologic: patellar DTR's 2+ bilat, sensation intact Psychiatric: A+Ox3, euthymic affect Results & Data Results & Data ([facility]) Vital Signs (Past 12 Hours) Vital Signs Temp Pulse Pulse Resp BP BP Pulse Ox 12/09/21 14:00 87 22 100/63 99 12/09/21 12:00 105 H 18 127/78 97 12/09/21 10:29 70 18 159/100 H 98 12/09/21 09:47 38.1 C H 102 H 20 155/91 H 97 Laboratory Results Lab Results 12/09/21 12/09/21 12/09/21 Range/Units 10:13 10:13 10:13 WBC 14.91 H (4.8-10.8) K/uL RBC 3.64 L (4.2-5.4) M/uL Hgb 9.4 L (12.0-16.0) g/dL Hct 31.3 L (37-47) % MCV 86.0 (80-100) fL MCH 25.8 (25-34) pg MCHC 30.0 L (32-36) g/dL RDW Std Deviation 51.1 H (36.4-46.3) fL RDW Coeff of Taylor 16.0 H (11.5-14.5) % Plt Count 547 H (130-400) K/uL MPV 8.6 (7.4-10.4) fL Immature Gran % (Auto) 0.3 % Neut % (Auto) 75.2 % Lymph % (Auto) 15.6 % [place] % (Auto) 6.3 % Eos % (Auto) 2.5 % Baso % (Auto) 0.1 % Neut # (Auto) 11.21 H (1.4-6.5) K/uL Lymph # (Auto) 2.32 (1.2-3.4) K/uL [place] # (Auto) 0.94 H (0.11-0.59) K/uL Eos # (Auto) 0.38 (0-0.5) K/uL Baso # (Auto) 0.02 (0-0.2) K/uL Immature Gran # (Auto) 0.04 H (0.00-0.02) K/uL ESR (0-30) mm/hr PT (9.0-12.0) Seconds INR (0.9-1.1) Sodium 138 (136-145) mmol/L Potassium 3.3 L (3.5-5.1) mmol/L Chloride 104 (98-107) mmol/L Carbon Dioxide 26 (21-32) mmol/L Anion Gap 8 (3-11) BUN 11 (6-23) mg/dl Creatinine 0.74 (0.6-1.2) mg/dl Est Cr Clr Drug Dosing 118.4 ml/min Est GFR ( Amer) 104.2 ml/min Est GFR (Non-Af Amer) 89.9 ml/min BUN/Creatinine Ratio 14.9 (10-20) Glucose 92 (70-99(Fasting)) mg/dl Lactate 1.5 (0.4-2.0) mmol/L Calcium 8.8 (8.5-10.1) mg/dl Magnesium 1.9 (1.7-2.4) mg/dl Total Bilirubin 0.5 (0.2-1.0) mg/dl Direct Bilirubin 0.1 (0-0.2) mg/dl AST 12 L (13-39) U/L ALT 9 (7-52) U/L Alkaline Phosphatase 154 H (34-104) U/L Troponin I < 0.03 (0-0.04) ng/ml C-Reactive Protein (0-0.5) mg/dl Total Protein 7.5 (6.0-8.3) gm/dl Albumin 3.8 (3.4-5.0) gm/dl Lipase 6 L (11-82) U/L Procalcitonin (0-0.5) ng/ml Urine Color Urine Appearance (Clear) Urine pH (4.5-7.5) Ur Specific [place] (1.000-1.030) Urine Protein (Negative) Urine Glucose (UA) (Negative) Urine Ketones (Negative) Urine Blood (Negative) Urine Nitrite (Negative) Urine Bilirubin (Negative) Urine Urobilinogen (Negative) Ur Leukocyte Esterase (Negative) Urine WBC (Auto) (0-5) /hpf Urine RBC (Auto) (0-4) /hpf U Hyaline Cast (Auto) (0-5) /lpf U Epithel Cells (Auto) (0-5) /lpf Urine Bacteria (Auto) (Negative) Ur Renal Epithelial Cell (0-5) /lpf Granular Casts (0) /lpf SARS-CoV-2, RNA, NAAT (NEGATIVE) 12/09/21 12/09/21 12/09/21 Range/Units 10:13 10:13 10:28 WBC (4.8-10.8) K/uL RBC (4.2-5.4) M/uL Hgb (12.0-16.0) g/dL Hct (37-47) % MCV (80-100) fL MCH (25-34) pg MCHC (32-36) g/dL RDW Std Deviation (36.4-46.3) fL RDW Coeff of Taylor (11.5-14.5) % Plt Count (130-400) K/uL MPV (7.4-10.4) fL Immature Gran % (Auto) % Neut % (Auto) % Lymph % (Auto) % [place] % (Auto) % Eos % (Auto) % Baso % (Auto) % Neut # (Auto) (1.4-6.5) K/uL Lymph # (Auto) (1.2-3.4) K/uL [place] # (Auto) (0.11-0.59) K/uL Eos # (Auto) (0-0.5) K/uL Baso # (Auto) (0-0.2) K/uL Immature Gran # (Auto) (0.00-0.02) K/uL ESR (0-30) mm/hr PT 10.8 (9.0-12.0) Seconds INR 1.1 (0.9-1.1) Sodium (136-145) mmol/L Potassium (3.5-5.1) mmol/L Chloride (98-107) mmol/L Carbon Dioxide (21-32) mmol/L Anion Gap (3-11) BUN (6-23) mg/dl Creatinine (0.6-1.2) mg/dl Est Cr Clr Drug Dosing ml/min Est GFR ( Amer) ml/min Est GFR (Non-Af Amer) ml/min BUN/Creatinine Ratio (10-20) Glucose (70-99(Fasting)) mg/dl Lactate (0.4-2.0) mmol/L Calcium (8.5-10.1) mg/dl Magnesium (1.7-2.4) mg/dl Total Bilirubin (0.2-1.0) mg/dl Direct Bilirubin (0-0.2) mg/dl AST (13-39) U/L ALT (7-52) U/L Alkaline Phosphatase (34-104) U/L Troponin I (0-0.04) ng/ml C-Reactive Protein (0-0.5) mg/dl Total Protein (6.0-8.3) gm/dl Albumin (3.4-5.0) gm/dl Lipase (11-82) U/L Procalcitonin 0.05 (0-0.5) ng/ml Urine Color Urine Appearance (Clear) Urine pH (4.5-7.5) Ur Specific [place] (1.000-1.030) Urine Protein (Negative) Urine Glucose (UA) (Negative) Urine Ketones (Negative) Urine Blood (Negative) Urine Nitrite (Negative) Urine Bilirubin (Negative) Urine Urobilinogen (Negative) Ur Leukocyte Esterase (Negative) Urine WBC (Auto) (0-5) /hpf Urine RBC (Auto) (0-4) /hpf U Hyaline Cast (Auto) (0-5) /lpf U Epithel Cells (Auto) (0-5) /lpf Urine Bacteria (Auto) (Negative) Ur Renal Epithelial Cell (0-5) /lpf Granular Casts (0) /lpf SARS-CoV-2, RNA, NAAT NEGATIVE (NEGATIVE) 12/09/21 12/09/21 12/09/21 Range/Units 11:44 11:44 11:48 WBC (4.8-10.8) K/uL RBC (4.2-5.4) M/uL Hgb (12.0-16.0) g/dL Hct (37-47) % MCV (80-100) fL MCH (25-34) pg MCHC (32-36) g/dL RDW Std Deviation (36.4-46.3) fL RDW Coeff of Taylor (11.5-14.5) % Plt Count (130-400) K/uL MPV (7.4-10.4) fL Immature Gran % (Auto) % Neut % (Auto) % Lymph % (Auto) % [place] % (Auto) % Eos % (Auto) % Baso % (Auto) % Neut # (Auto) (1.4-6.5) K/uL Lymph # (Auto) (1.2-3.4) K/uL [place] # (Auto) (0.11-0.59) K/uL Eos # (Auto) (0-0.5) K/uL Baso # (Auto) (0-0.2) K/uL Immature Gran # (Auto) (0.00-0.02) K/uL ESR 15 (0-30) mm/hr PT (9.0-12.0) Seconds INR (0.9-1.1) Sodium (136-145) mmol/L Potassium (3.5-5.1) mmol/L Chloride (98-107) mmol/L Carbon Dioxide (21-32) mmol/L Anion Gap (3-11) BUN (6-23) mg/dl Creatinine (0.6-1.2) mg/dl Est Cr Clr Drug Dosing ml/min Est GFR ( Amer) ml/min Est GFR (Non-Af Amer) ml/min BUN/Creatinine Ratio (10-20) Glucose (70-99(Fasting)) mg/dl Lactate (0.4-2.0) mmol/L Calcium (8.5-10.1) mg/dl Magnesium (1.7-2.4) mg/dl Total Bilirubin (0.2-1.0) mg/dl Direct Bilirubin (0-0.2) mg/dl AST (13-39) U/L ALT (7-52) U/L Alkaline Phosphatase (34-104) U/L Troponin I (0-0.04) ng/ml C-Reactive Protein < 0.50 (0-0.5) mg/dl Total Protein (6.0-8.3) gm/dl Albumin (3.4-5.0) gm/dl Lipase (11-82) U/L Procalcitonin (0-0.5) ng/ml Urine Color Dark Yellow Urine Appearance Clear (Clear) Urine pH 6.0 (4.5-7.5) Ur Specific [place] > 1.045 H (1.000-1.030) Urine Protein 2+ H (Negative) Urine Glucose (UA) Negative (Negative) Urine Ketones Trace H (Negative) Urine Blood Negative (Negative) Urine Nitrite Negative (Negative) Urine Bilirubin 1+ H (Negative) Urine Urobilinogen Negative (Negative) Ur Leukocyte Esterase 1+ H (Negative) Urine WBC (Auto) 5-10 H (0-5) /hpf Urine RBC (Auto) 5-10 H (0-4) /hpf U Hyaline Cast (Auto) 10-30 H (0-5) /lpf U Epithel Cells (Auto) >30 H (0-5) /lpf Urine Bacteria (Auto) Negative (Negative) Ur Renal Epithelial Cell 0-5 (0-5) /lpf Granular Casts 10-20 H (0) /lpf SARS-CoV-2, RNA, NAAT (NEGATIVE) Diagnostic Findings CT hip RT w con HISTORY: 56 years-old Female post op infection acute right hip pain with soft tissue swelling. Prior right total joint arthroplasty approximately one month prior COMPARISON: None TECHNIQUE: Multiple axial CT images of the right hip were obtained following the intravenous administration of 95 mL Optiray 320. A dose lowering technique was used consistent with the principals of ALARA. FINDINGS: No acute process of the imaged intrapelvic structures. Decompressed urinary bladder with wall thickening. Mildly enlarged right inguinal chain lymph nodes measure up to 11 mm. Partially imaged fluid collection with mild peripheral enhancement involves the deep lateral subcutaneous tissues of the right hip measuring over 12 cm in craniocaudal dimension and measuring up to 4.9 x 6.3 cm in AP and transverse dimensions. The margin of this collection abuts the lateral myofascial tensor fascia carlos. There is subcutaneous edema with associated skin thickening. Additionally, there is ill-defined decreased attenuation/heterogeneity within the proximal fibers of the rectus femoris/proximal tensor fascia carlos measuring up to 2.2 x 3.297 series 2. No joint effusion identified. No acute fracture, dislocation or opaque foreign body. Satisfactory alignment of the right hip total joint arthroplasty. No unexpected opaque foreign body. IMPRESSION: 1. Satisfactory alignment of the right hip total joint arthroplasty. No acute fracture or dislocation. 2. Cellulitis of the right upper thigh with partially imaged subcutaneous fluid collection measuring over 12 cm in length suggestive of a postoperative seroma versus abscess. 3. Ill-defined heterogeneity with decreased attenuation of the proximal rectus femoris muscle may reflect intramuscular hematoma, or myositis/developing intramuscular abscess. 4. No joint effusion identified. 5. Right inguinal chain adenopathy, likely reactive. Code Status & VTE Plan VTE Prophylaxis Plan VTE Prophylaxis will be ordered: Yes (1) Post-operative infection Encounter type: initial encounter Postoperative infection type: deep incisional surgical site Qualified Code(s): T81.42XA - Infection following a procedure, deep incisional surgical site, initial encounter
[2021-12-09] MEDS: ceFAZolin 2000MG 2,000 MG/15 ML SYR IV SCH (17:11)
--- NOTE | 2021-12-09 18:41 | Hospitalist Consultation ---
Date of Consultation December 09, 2021 Assessment & Plan (1) Postoperative wound cellulitis: As per HPI and primary team - Continue Daptomycin - Broaden out coverage if clinically remains febrile, WBC without downtrending or worsening - Pain control per primary team - VTE prophylaxis per primary team - IVF per primary team Remain concern for abscess formation not only at operative site but as well as proximal to incision site Would have low threshold to broaden coverage and then tailor down when culture data available (2) Low back pain: Chronic continue with pain medications - Hold celebrex with gastric bypass hx as well as low HGB (3) GERD (gastroesophageal reflux disease): Continue PPI (4) Hypertension: Controlled - Hemodynamically stable at this time and renal function normal - continue lisinopril- hold if operative decision made (5) Asthma: Continue MARIO and Flonase spray (6) Sleep apnea: Sleep study performed 2018- was to have trial of CPAP with autoPAP - never completed, she is no no device - reports no complications post operative with anesthesia and has never had CPAP on. 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 I verified all galloway points and agree with JUAN RAMON Leary with the following exceptions and/or additions: 56 year old female with right hip pain, fever, erythema concerning for post operative THR infection. O/E HS1+2, no murmurs, Chest CTAB, mild erythema and warmth surrounding distal right surgical scar with induration. Fluctuance surrounding surgical scar. Tender to palpation. A/P Cellulitis with abscess - concerning for prosthetic joint infection given recent post operative course with close proximity of suspected abscess (gram stain positive for GPC). Will defer need for surgery to orthopedics but doubtful cellulitis alone causing her fever and WBC and no other source of infection elsewhere from history or exam. Continue on daptomycin in addition to Ancef started by orthopedics to cover for GPC including MRSA. Although she meets SIRS criteria for sepsis she is not septic appearing and lactate 1.5 therefore safe for admission primarily under orthopedics to med/surg. Given current low normal BP agree with holding lisinopril. IV fluids appear appropriate. Anemia - suspect post operative. No melena or bright red blood in stool per patient. Possible rectus femoris sheath hematoma but no pain here on exam. Will discontinue Celebrex and aspirin and repeat CBC in AM to make sure stable. History of Present Illness Reason for Consultation: Medical management Requesting Physician: Dr. Ferreira Attending Physician: Tang Ferreira DO History of Present Illness 56 YOF s/p elective right total hip replacement that was performed at [facility] on October 31. Patient follow with [facility]. Patient comes into the EMD today for complaints of right hip pain and erythema over the past week. She had noticed that starting approx. Saturday that she was having increase in temperature and fatigue. Her tmax was 102.8 at home she thought it was COVID and performed a home test. She continued to have temperatures throughout the day 99 degrees or higher with always noting an increase at night time. This was then associated with increase in fatigue. She noticed over the last day that her right leg started to become sore and red, she sought medical care today. Patient was seen by [facility] on Dec 02 without note of infection at the site, however while ambulating she did inadvertently pull out her PICCO catheter, which may be nidus. In the EMD the patient had routine labs performed to include blood culture, urine culture, CXR performed and CT of the hip and pelvis performed. CT was interpreted as cellulitis of the right upper thigh with subq fluid collection measuring 12cm in length suggestive seroma vs. abscess, as well as attenuation of the proximal rectus femoris muscle that may reflect hematoma/myositis/or intramuscular abscess. She had an elevation of her WBC as well as increased NLR, urine appears to be consistent with contamination and hypovolemia, she did receive 2L crystalloid in the EMD, was started on Cefepime and Daptomycin. Her CXR reveals no opacifications or concerns of acute process. Orthopaedics has admitted the patient and medicine has been consulted for medical management. She did have fluid from her operative site sent for culture and gram stain. Her Gram stain is positive for moderate GPC. Currently have continued her Daptomycin and Ancef was added by primary team. She has a past medical history of Asthma, obesity, joint pain, GERD and gastric bypass surgery. She feels that she has been doing well with her rehab up until this past weekend. Her COVID test is: NEGATIVE Recommendations: - Stop Celebrex- discontinued - Continue with Daptomycin - defer Ancef to primary team - Await blood culture - Operative site fluid- GM stain positive- await culture - UA repeat in morning - ordered - Hold ASA with recheck CBC in morning- likely hgb low following surgery Allergies Allergy/AdvReac Type Severity Reaction Status Date / Time enalapril Allergy Intermediate DYSPEPSIA Verified 12/09/21 12:02 nickel Allergy Mild Blister Verified 12/09/21 12:02 Penicillins Allergy Mild UNKNOWN, Verified 12/09/21 12:02 in childhood metformin AdvReac Mild Diarrhea Verified 12/09/21 12:02 Home Medications Medication Instructions Recorded Confirmed Type cetirizine 10 mg tablet (Zyrtec) 10 mg PO QAM 04/29/19 12/09/21 History fluticasone propionate 50 2 sprays INTNAS QAM PRN gm 06/25/19 12/09/21 History mcg/actuation nasal spray,suspension pantoprazole 40 mg tablet,delayed 40 mg PO QAM #30 tab 08/11/20 12/09/21 Rx release albuterol sulfate 90 mcg/actuation 2 puff INH Q6H PRN #6.7 g 06/15/21 12/09/21 Rx aerosol inhaler (Ventolin HFA) tramadol 50 mg tablet 50 mg PO BID PRN #7 tab 08/20/21 12/09/21 Rx lisinopril 20 mg tablet 20 mg PO QAM #90 tab 10/23/21 12/09/21 Rx acetaminophen 500 mg tablet 1,000 mg PO BID tab 11/09/21 12/09/21 History (Tylenol Extra Strength) aspirin 81 mg tablet,delayed 81 mg PO BID tab 11/09/21 12/09/21 History release celecoxib 200 mg capsule (Celebrex) 200 mg PO BID 11/09/21 12/09/21 History buspirone 15 mg tablet 7.5 mg PO BID 12/09/21 12/09/21 History duloxetine 20 mg capsule,delayed 20 mg PO QDL 12/09/21 12/09/21 History release Patient History Medical History Acid reflux ADHD Allergic rhinitis Asthma Asymmetrical hearing loss of right ear Chronic obstructive pulmonary disease Chronic sinusitis Depression with anxiety Hypertension Insomnia Lumbar degenerative disc disease Peripheral vascular disease Sleep apnea Vitamin B12 deficiency Vitamin D deficiency Surgical History H/O nasal polypectomy History of colposcopy History of cryosurgery for cervix History of esophagogastroduodenoscopy (EGD) History of hysteroscopy with endometrial ablation History of left knee replacement (~09/15/20) Hx of colonoscopy S/P S/P cataract surgery both S/P cholecystectomy S/P gastric surgery gastric bypass, then a revision and a lap band 10/2019 Family History Aunt Brain cancer Breast cancer Mother Stroke Father Lung cancer Kidney cancer, primary, with metastasis from kidney to other site Other No family history of adverse response to anesthesia Denies family history of Colon cancer Ovarian cancer Social History Smoking Status: Never smoker Second Hand Exposure: No; Hx Alcohol Use: Yes Alcohol type: wine Hx Substance Use: No Preferred Language: [place] Communication Ability: Effective Visual Impairment: No Limitations Hearing Ability: Normal Concrete Inspector Required: No Beliefs That Will Affect Care: None marital status: Current Living Situation: Family Current Living Situation Comment: Lives with daughter current occupational status: employed Feels Safe at Home: Yes Dental Care, Regularly: Yes Physical Activity Frequency: 1-2 Times per Week Physical Activity Frequency Comment: Physical therapy for left knee replacement Seatbelt Use: always Sunscreen Use: Yes Assistive Devices: Glasses Review of Systems Review of Systems: REVIEW OF SYSTEMS: Constitutional: (+) fever, sweats or chills Eyes: No diplopia, no worsening or blurred vision ENT: normal hearing, no trouble swallowing Respiratory: No cough, sputum, dyspnea at rest or on exertion Cardiovascular: No chest pain, tightness or palpitations Abdomen: (+) nausea, No pain,vomiting, diarrhea or constipation Musculoskeletal: (+) right hip pain and back pain, NO calf pain, swelling Neurologic: No weakness, numbness/tingling, or balance problems Psychiatric: No anxiety or depression Skin:(+) erythema to right hip and inguinal fold Physical Exam Physical Exam: PHYSICAL EXAM: General: awake, alert, no apparent distress Head: Normocephalic, atraumatic ENT: PERRL, EOMI, no pharyngeal exudate, mucous membranes moist Neuro: AAO x 3, speech clear and appropriate, strength intact bilaterally 5/5, sensation intact and equal all extremities and dermatomes, no pronator drift Chest: equal rise and fall of the chest, no accessory muscle use, no heaves or thrills, Clear to auscultation, on room air, Cardiac: Regular rate and rhythm, telemetry reviewed- NSR, skin warm dry, cap refill <3 seconds, peripheral pulses +2 no JVD, no murmur, no edema GI: NABS x 4 quadrants, soft, nontender to palpation, no rebound, guarding or tenderness : Spontaneously voiding, no pain, no CVA tenderness, MSK: Right hip erythema with palpable border, tender to palpation as well as in inguinal fold Psych: Normal mood and affect Results & Data Results & Data ([facility]) Vital Signs (Past 12 Hours) Vital Signs Temp Pulse Pulse Resp BP BP Pulse Ox 12/09/21 16:53 107 H 18 108/80 97 12/09/21 14:00 87 22 100/63 99 12/09/21 12:00 105 H 18 127/78 97 12/09/21 10:29 70 18 159/100 H 98 12/09/21 09:47 38.1 C H 102 H 20 155/91 H 97 Laboratory Results Abnormal lab results 12/09/21 12/09/21 12/09/21 Range/Units 10:13 10:13 11:48 WBC 14.91 H (4.8-10.8) K/uL RBC 3.64 L (4.2-5.4) M/uL Hgb 9.4 L (12.0-16.0) g/dL Hct 31.3 L (37-47) % MCHC 30.0 L (32-36) g/dL RDW Std Deviation 51.1 H (36.4-46.3) fL RDW Coeff of Taylor 16.0 H (11.5-14.5) % Plt Count 547 H (130-400) K/uL Neut # (Auto) 11.21 H (1.4-6.5) K/uL [place] # (Auto) 0.94 H (0.11-0.59) K/uL Immature Gran # (Auto) 0.04 H (0.00-0.02) K/uL Potassium 3.3 L (3.5-5.1) mmol/L AST 12 L (13-39) U/L Alkaline Phosphatase 154 H (34-104) U/L Lipase 6 L (11-82) U/L Ur Specific [place] > 1.045 H (1.000-1.030) Urine Protein 2+ H (Negative) Urine Ketones Trace H (Negative) Urine Bilirubin 1+ H (Negative) Ur Leukocyte Esterase 1+ H (Negative) Urine WBC (Auto) 5-10 H (0-5) /hpf Urine RBC (Auto) 5-10 H (0-4) /hpf U Hyaline Cast (Auto) 10-30 H (0-5) /lpf U Epithel Cells (Auto) >30 H (0-5) /lpf Granular Casts 10-20 H (0) /lpf Diagnostic Findings Chest X-Ray 12/09/21 10:05 XR chest 1V portable HISTORY: 56 years-old Female sepsis, fever acute sepsis with fever COMPARISON: Chest radiograph 10/16/2021 TECHNIQUE: Portable AP view of the chest FINDINGS: The cardiomediastinal and hilar silhouettes are unchanged. No pneumothorax, pleural effusion, airspace consolidation or overt pulmonary edema. Mild degenerative changes of the shoulders and spine. IMPRESSION: No acute process. ACT 112: Negative or not required by law. The above report was generated using voice recognition software. It may contain grammatical, syntax or spelling errors. Electronically signed by: Joshua Saez M.D. 12/09/2021 10:[address] 12/09/21 11:16 CT hip RT w con HISTORY: 56 years-old Female post op infection acute right hip pain with soft tissue swelling. Prior right total joint arthroplasty approximately one month prior COMPARISON: None TECHNIQUE: Multiple axial CT images of the right hip were obtained following the intravenous administration of 95 mL Optiray 320. A dose lowering technique was used consistent with the principals of MURIEL. FINDINGS: No acute process of the imaged intrapelvic structures. Decompressed urinary bladder with wall thickening. Mildly enlarged right inguinal chain lymph nodes measure up to 11 mm. Partially imaged fluid collection with mild peripheral enhancement involves the deep lateral subcutaneous tissues of the right hip me asuring over 12 cm in craniocaudal dimension and measuring up to 4.9 x 6.3 cm in AP and transverse dimensions. The margin of this collection abuts the lateral myofascial tensor fascia carlos. There is subcutaneous edema with associated skin thickening. Additionally, there is ill-defined decreased attenuation/heterogeneity within the proximal fibers of the rectus femoris/proximal tensor fascia carlos measuring up to 2.2 x 3.297 series 2. No joint effusion identified. No acute fracture, dislocation or opaque foreign body. Satisfactory alignment of the right hip total joint arthroplasty. No unexpected opaque foreign body. IMPRESSION: 1. Satisfactory alignment of the right hip total joint arthroplasty. No acute fracture or dislocation. 2. Cellulitis of the right upper thigh with partially imaged subcutaneous fluid collection measuring over 12 cm in length suggestive of a postoperative seroma versus abscess. 3. Ill-defined heterogeneity with decreased attenuation of the proximal rectus femoris muscle may reflect intramuscular hematoma, or myositis/developing intramuscular abscess. 4. No joint effusion identified. 5. Right inguinal chain adenopathy, likely reactive. ACT 112: Negative or not required by law. The above report was generated using voice recognition software. It may contain grammatical, syntax or spelling errors. Electronically signed by: Joshua Saez M.D. 12/09/2021 12:10 PM Medications Administered Cefazolin Sodium (Ancef 2000mg) 2,000 mg in 15 mls @ 2.5 mls/min IV Q8H PREM Stop: 12/16/21 17:29 Last Admin: 12/09/21 17:11 Dose: 2.5 mls/min Documented by: [id number] Discontinued Medications Acetaminophen (Acetaminophen 500 Mg Tab) 1,000 mg PO NOW STA Stop: 12/09/21 10:06 Last Admin: 12/09/21 10:25 Dose: 1,000 mg Documented by: [id number] Hydromorphone HCl (Hydromorphone Inj 0.5 Mg/0.5 Ml Syr) 0.5 mg IV NOW STA Stop: 12/09/21 13:05 Last Admin: 12/09/21 13:11 Dose: 0.5 mg Documented by: [id number] Hydromorphone HCl (Hydromorphone Inj 1 Mg/Ml Syringe) 1 mg IV NOW STA Stop: 12/09/21 13:30 Last Admin: 12/09/21 13:37 Dose: 1 mg Documented by: [id number] Sodium Chloride (Nss 1000ml) 2,000 mls @ 999 mls/hr IV .Q2H1M ONE Stop: 12/09/21 12:05 Last Infusion: 12/09/21 13:58 Dose: 0 mls/hr Documented by: [id number] Admin: 12/09/21 10:17 Dose: 999 mls/hr Documented by: [id number] Cefepime HCl (Maxipime) 2,000 mg in 20 mls @ 5 mls/min IV NOW STA; Protocol Stop: 12/09/21 11:52 Last Admin: 12/09/21 11:59 Dose: 5 mls/min Documented by: [id number] Daptomycin 525 mg/ Syringe 10.5 mls @ 5.25 mls/min IV NOW ONE; Protocol Stop: 12/09/21 11:50 Last Admin: 12/09/21 13:27 Dose: 5.25 mls/min Documented by: [id number] Ioversol (Optiray 320 100ml) 95 ml IV ONCE ONE Stop: 12/09/21 11:36 Last Admin: 12/09/21 11:36 Dose: 95 ml Documented by: [id number] ECG Additional Comments: Sinus tachycardia Possible Left atrial enlargement Nonspecific ST and T wave abnormality Abnormal ECG When compared with ECG of 16-OCT-2021 08:58, No significant change was found Confirmed by Jovan Cruz ([id number]) on 12/09/2021 11:40:26 AM PG Care Time/CCT Total # of Minutes Spent Total Time Spent with Patient: Total time spent is greater than 50% in coordination of care (as documented) at patient's floor/unit and/or counseling patient: Coding Level of Care Code 29926 Inpt Consult Level 4 Diagnoses Postoperative wound cellulitis T81.49XA Low back pain M54.5 GERD (gastroesophageal reflux disease) K21.9 Hypertension I10 Asthma J45.909 Sleep apnea G47.30
[2021-12-09] MEDS ORDERED: FLUTICASONE PROPIONATE NA SPR 16 GM BTL NAE PRN (18:50)
[2021-12-09] MEDS ORDERED: ALBUTEROL HFA 8 GM INHALER INH PRN (18:50)
[2021-12-09] MEDS ORDERED: traMADol HCL 50 MG TABLET PO PRN (18:50)
[2021-12-09] MEDS: SODIUM CHLORIDE 0.9% 1000ML 1,000 ML IV SCH (20:51)
[2021-12-09] MEDS ORDERED: CeleBREX 200 MG CAP PO SCH (21:00)
[2021-12-09] MEDS: HYDROmorphone INJ 1 MG/ML SYRINGE IV PRN (21:23)
[2021-12-09] MEDS: ASPIRIN 81 MG ECTAB PO SCH (21:24)
[2021-12-09] MEDS: busPIRone 7.5 MG TAB PO SCH (21:24)
[2021-12-09] MEDS: ACETAMINOPHEN 500 MG TAB PO SCH (21:25)
[2021-12-09] MEDS ORDERED: POTASSIUM CHLORIDE CRTAB 20 MEQ TABCR PO STA (21:30)
[2021-12-10] MEDS: ceFAZolin 2000MG 2,000 MG/15 ML SYR IV SCH (01:00)
[2021-12-10 02:13] LABS: Appearance Urine Clear (Clear); Bacteria Urine Automated Negative (Negative); Bilirubin Urine Negative (Negative); Blood Urine Negative (Negative); Color Urine Dark Yellow; Epithelial Cell Urine Auto >30 /lpf (0-5); Glucose Urine UA Negative (Negative); Ketones Urine Trace (Negative); Leukocyte Esterase Urine Trace (Negative); Nitrite Urine Negative (Negative); Protein Urine 1+ (Negative); RBC Urine Automated 0-4 /hpf (0-4); Specific Gravity Urine > 1.045 (1.000-1.030); Urobilinogen Urine Negative (Negative)
[2021-12-10 02:26] LABS: Mucus Urine Present (None Prsent)
[2021-12-10 02:27] LABS: Cast Urine Automated 0 /lpf (0-5)
[2021-12-10 06:04] LABS: Basophils # (auto) 0.02 K/uL (0-0.2); Basophils % (auto) 0.2 %; Eosinophils # (auto) 0.22 K/uL (0-0.5); Eosinophils % (auto) 1.8 %; Hematocrit (blood only) 27.3 % (37-47); Hemoglobin 8.1 g/dL (12.0-16.0); Immature Granulocytes # (auto) 0.02 K/uL (0.00-0.02); Immature Granulocytes % (auto) 0.2 %; Lymphocytes # (auto) 1.71 K/uL (1.2-3.4); Lymphocytes % (auto) 13.9 %; Mean Corpuscular Hemoglobin 25.4 pg (25-34); Mean Corpuscular Hgb Conc 29.7 g/dL (32-36); Mean Corpuscular Volume 85.6 fL (80-100); Mean Platelet Volume 8.2 fL (7.4-10.4); Monocytes # (auto) 1.15 K/uL (0.11-0.59); Monocytes % (auto) 9.4 %; Neutrophils # (auto) 9.16 K/uL (1.4-6.5); Neutrophils % (auto) 74.5 %; Platelet Count 424 K/uL (130-400); RDW Coefficient of Variation 16.2 % (11.5-14.5); RDW Standard Deviation 51.3 fL (36.4-46.3); Red Blood Count 3.19 M/uL (4.2-5.4); White Blood Count 12.28 K/uL (4.8-10.8)
[2021-12-10 06:32] LABS: BUN Creatinine Ratio 17.4 (10-20); C Reactive Protein 13.15 mg/dl (0-0.5); Calcium 8.4 mg/dl (8.5-10.1); Creatinine Clr Calc Pharmacy 126.9 ml/min; Est GFR (Non-African American) 96.6 ml/min; Potassium 3.6 mmol/L (3.5-5.1)
--- NOTE | 2021-12-10 07:55 | Orthopedic Progress Note ---
Date of Service December 10, 2021 Assessment & Plan (1) Postoperative wound cellulitis: Plan: Hospital day 1 right hip infection -Gram stain and cultures on fluid collection aspirated yesterday is growing gram-positive cocci, staph species. Blood cultures are positive for gram- positive cocci in clusters. -Continue IV antibiotics. She received 2 doses of Ancef on admission, as well as a dose of cefepime in the ED. She is on IV daptomycin per medicine. Will s top the Ancef and continue with daptomycin pending culture results. -Patient's labs demonstrating white blood cell count of 12.2k improved from 15k yesterday, sed rate and CRP are both elevated today with a sed rate of 62 and her CRP is 13.15. Hemoglobin dropped to 8.2 from 9.2 yesterday likely dilutional. -Dr. Ferreira will see the patient today. Will await his input. Admission and Anticipated Discharge Date Admission Date: December 09, 2021 Supervising Physician Co-Signing Physician Notes Patient seen and examined while patient laying supine in hospital bed. Patient alert and oriented x3. Pain is well controlled. No fevers or chills. Hip pain is improved somewhat. Continues IV antibiotics. Examination right hip is improved. Continued induration with some minor discomfort with palpation. No significant pain with range of motion. Neurovascular status intact. Laboratories and microbiology reviewed. Gram-positive cocci in clusters from hematoma aspiration yesterday. Assessment: Infected hematoma/seroma right hip. Suspect infected total hip arthroplasty acute. Recommendations: Discussed the patient's care plan with Dr. Parker who performed the anterior approach total hip arthroplasty procedure initially and also discu ssed with Dr. Shelton who has agreed to evaluate the patient as he does the anterior approach to the hip as does Dr. Parker. Dr. Shelton has been consulted and he will give his input when able. Continue IV antibiotics and supportive management. Subjective Patient is resting in bed. States she feels somewhat better compared to yesterday. She feels fatigued but otherwise denies chest pain, shortness of breath, dizziness/lightheadedness, nausea/vomiting/diarrhea, chills. Review of Systems Review of Systems: All systems reviewed & are unremarkable except as noted in Subjective Physical Exam Physical Exam: Right hip mildly improved induration and erythema. Tenderness to lateral hip unchanged. Mild pain with gentle hip ROM unchanged. Distally n/v status and sensation intact. Toes mobile. No calf tenderness. Constitutional: WD/WN, vitals as above Results & Data ([facility]) Vital Signs (Past 12 Hours) Vital Signs Temp Pulse Pulse Pulse Resp BP Pulse Ox 12/10/21 07:32 37.7 C H 120 H 20 135/85 90 12/09/21 20:45 37.7 C H 110 H 18 133/90 96 12/09/21 20:25 109 H 20 108/80 97 Laboratory Results Spec: [id number] Collected: 12/09/21 Received: 12/09/[address]: German Bennett PA-C Source: Hip,Right OV Order: Ordered: Aer/Shereen Cult/Sm Comments: Comment lateral hip fluid collection Procedure Result Verified Site Gram Stain Final 12/09/21 Gram Stain Result Many WBCs Seen Moderate Gram Positive Cocci Aero/Shereen Cult Preliminary 12/10/21 Organism 1 Staphylococcus species Quantity Moderate Sens Sensitivities to Follow Name: MIRA PITTS Acct: [id number] Status: ADM [place] : 1965 [facility] [place] Date: 12/09/21 Age: 56 Sex: F Dis Date: Loc: Medical/Surgical/Ortho 3 [facility]Bed: [facility] Spec: [id number] Collected: 12/09/21-1015 Received: 12/09/211028 Subm Dr: Marco Alexandra M.D. Source: Blood OV Order: Ordered: Blood Culture Comments: Comment Default is separate sites, same time Procedure Result Verified Site Blood Culture Aerobic PENDING Blood Culture Anaerobic Preliminary 12/10/21 Organism 1 Gram positive cocci clusters Sens Sensitivities Dependent on Further Identification Phoned positive Blood Culture Gram Stain report to SUHA MCMILLAN on 12/10/21 at 0744 [place] [id number]. [place] [id number]. Lab Results 12/09/21 12/09/21 12/09/21 Range/Units 10:13 10:13 10:13 WBC 14.91 H (4.8-10.8) K/uL RBC 3.64 L (4.2-5.4) M/uL Hgb 9.4 L (12.0-16.0) g/dL Hct 31.3 L (37-47) % MCV 86.0 (80-100) fL MCH 25.8 (25-34) pg MCHC 30.0 L (32-36) g/dL RDW Std Deviation 51.1 H (36.4-46.3) fL RDW Coeff of Taylor 16.0 H (11.5-14.5) % Plt Count 547 H (130-400) K/uL MPV 8.6 (7.4-10.4) fL Immature Gran % (Auto) 0.3 % Neut % (Auto) 75.2 % Lymph % (Auto) 15.6 % [place] % (Auto) 6.3 % Eos % (Auto) 2.5 % Baso % (Auto) 0.1 % Neut # (Auto) 11.21 H (1.4-6.5) K/uL Lymph # (Auto) 2.32 (1.2-3.4) K/uL [place] # (Auto) 0.94 H (0.11-0.59) K/uL Eos # (Auto) 0.38 (0-0.5) K/uL Baso # (Auto) 0.02 (0-0.2) K/uL Immature Gran # (Auto) 0.04 H (0.00-0.02) K/uL ESR (0-30) mm/hr PT (9.0-12.0) Seconds INR (0.9-1.1) Sodium 138 (136-145) mmol/L Potassium 3.3 L (3.5-5.1) mmol/L Chloride 104 (98-107) mmol/L Carbon Dioxide 26 (21-32) mmol/L Anion Gap 8 (3-11) BUN 11 (6-23) mg/dl Creatinine 0.74 (0.6-1.2) mg/dl Est Cr Clr Drug Dosing 118.4 ml/min Est GFR ( Amer) 104.2 ml/min Est GFR (Non-Af Amer) 89.9 ml/min BUN/Creatinine Ratio 14.9 (10-20) Glucose 92 (70-99(Fasting)) mg/dl Lactate 1.5 (0.4-2.0) mmol/L Calcium 8.8 (8.5-10.1) mg/dl Magnesium 1.9 (1.7-2.4) mg/dl Total Bilirubin 0.5 (0.2-1.0) mg/dl Direct Bilirubin 0.1 (0-0.2) mg/dl AST 12 L (13-39) U/L ALT 9 (7-52) U/L Alkaline Phosphatase 154 H (34-104) U/L Troponin I < 0.03 (0-0.04) ng/ml C-Reactive Protein (0-0.5) mg/dl Total Protein 7.5 (6.0-8.3) gm/dl Albumin 3.8 (3.4-5.0) gm/dl Lipase 6 L (11-82) U/L Procalcitonin (0-0.5) ng/ml Urine Color Urine Appearance (Clear) Urine pH (4.5-7.5) Ur Specific [place] (1.000-1.030) Urine Protein (Negative) Urine Glucose (UA) (Negative) Urine Ketones (Negative) Urine Blood (Negative) Urine Nitrite (Negative) Urine Bilirubin (Negative) Urine Urobilinogen (Negative) Ur Leukocyte Esterase (Negative) Urine WBC (Auto) (0-5) /hpf Urine RBC (Auto) (0-4) /hpf U Hyaline Cast (Auto) (0-5) /lpf U Epithel Cells (Auto) (0-5) /lpf Urine Bacteria (Auto) (Negative) Ur Renal Epithelial Cell (0-5) /lpf Granular Casts (0) /lpf Urine Mucus (None Prsent) SARS-CoV-2, RNA, NAAT (NEGATIVE) 12/09/21 12/09/21 12/09/21 Range/Units 10:13 10:13 10:28 WBC (4.8-10.8) K/uL RBC (4.2-5.4) M/uL Hgb (12.0-16.0) g/dL Hct (37-47) % MCV (80-100) fL MCH (25-34) pg MCHC (32-36) g/dL RDW Std Deviation (36.4-46.3) fL RDW Coeff of Taylor (11.5-14.5) % Plt Count (130-400) K/uL MPV (7.4-10.4) fL Immature Gran % (Auto) % Neut % (Auto) % Lymph % (Auto) % [place] % (Auto) % Eos % (Auto) % Baso % (Auto) % Neut # (Auto) (1.4-6.5) K/uL Lymph # (Auto) (1.2-3.4) K/uL [place] # (Auto) (0.11-0.59) K/uL Eos # (Auto) (0-0.5) K/uL Baso # (Auto) (0-0.2) K/uL Immature Gran # (Auto) (0.00-0.02) K/uL ESR (0-30) mm/hr PT 10.8 (9.0-12.0) Seconds INR 1.1 (0.9-1.1) Sodium (136-145) mmol/L Potassium (3.5-5.1) mmol/L Chloride (98-107) mmol/L Carbon Dioxide (21-32) mmol/L Anion Gap (3-11) BUN (6-23) mg/dl Creatinine (0.6-1.2) mg/dl Est Cr Clr Drug Dosing ml/min Est GFR ( Amer) ml/min Est GFR (Non-Af Amer) ml/min BUN/Creatinine Ratio (10-20) Glucose (70-99(Fasting)) mg/dl Lactate (0.4-2.0) mmol/L Calcium (8.5-10.1) mg/dl Magnesium (1.7-2.4) mg/dl Total Bilirubin (0.2-1.0) mg/dl Direct Bilirubin (0-0.2) mg/dl AST (13-39) U/L ALT (7-52) U/L Alkaline Phosphatase (34-104) U/L Troponin I (0-0.04) ng/ml C-Reactive Protein (0-0.5) mg/dl Total Protein (6.0-8.3) gm/dl Albumin (3.4-5.0) gm/dl Lipase (11-82) U/L Procalcitonin 0.05 (0-0.5) ng/ml Urine Color Urine Appearance (Clear) Urine pH (4.5-7.5) Ur Specific [place] (1.000-1.030) Urine Protein (Negative) Urine Glucose (UA) (Negative) Urine Ketones (Negative) Urine Blood (Negative) Urine Nitrite (Negative) Urine Bilirubin (Negative) Urine Urobilinogen (Negative) Ur Leukocyte Esterase (Negative) Urine WBC (Auto) (0-5) /hpf Urine RBC (Auto) (0-4) /hpf U Hyaline Cast (Auto) (0-5) /lpf U Epithel Cells (Auto) (0-5) /lpf Urine Bacteria (Auto) (Negative) Ur Renal Epithelial Cell (0-5) /lpf Granular Casts (0) /lpf Urine Mucus (None Prsent) SARS-CoV-2, RNA, NAAT NEGATIVE (NEGATIVE) 12/09/21 12/09/21 12/09/21 Range/Units 11:44 11:44 11:48 WBC (4.8-10.8) K/uL RBC (4.2-5.4) M/uL Hgb (12.0-16.0) g/dL Hct (37-47) % MCV (80-100) fL MCH (25-34) pg MCHC (32-36) g/dL RDW Std Deviation (36.4-46.3) fL RDW Coeff of Taylor (11.5-14.5) % Plt Count (130-400) K/uL MPV (7.4-10.4) fL Immature Gran % (Auto) % Neut % (Auto) % Lymph % (Auto) % [place] % (Auto) % Eos % (Auto) % Baso % (Auto) % Neut # (Auto) (1.4-6.5) K/uL Lymph # (Auto) (1.2-3.4) K/uL [place] # (Auto) (0.11-0.59) K/uL Eos # (Auto) (0-0.5) K/uL Baso # (Auto) (0-0.2) K/uL Immature Gran # (Auto) (0.00-0.02) K/uL ESR 15 (0-30) mm/hr PT (9.0-12.0) Seconds INR (0.9-1.1) Sodium (136-145) mmol/L Potassium (3.5-5.1) mmol/L Chloride (98-107) mmol/L Carbon Dioxide (21-32) mmol/L Anion Gap (3-11) BUN (6-23) mg/dl Creatinine (0.6-1.2) mg/dl Est Cr Clr Drug Dosing ml/min Est GFR ( Amer) ml/min Est GFR (Non-Af Amer) ml/min BUN/Creatinine Ratio (10-20) Glucose (70-99(Fasting)) mg/dl Lactate (0.4-2.0) mmol/L Calcium (8.5-10.1) mg/dl Magnesium (1.7-2.4) mg/dl Total Bilirubin (0.2-1.0) mg/dl Direct Bilirubin (0-0.2) mg/dl AST (13-39) U/L ALT (7-52) U/L Alkaline Phosphatase (34-104) U/L Troponin I (0-0.04) ng/ml C-Reactive Protein < 0.50 (0-0.5) mg/dl Total Protein (6.0-8.3) gm/dl Albumin (3.4-5.0) gm/dl Lipase (11-82) U/L Procalcitonin (0-0.5) ng/ml Urine Color Dark Yellow Urine Appearance Clear (Clear) Urine pH 6.0 (4.5-7.5) Ur Specific [place] > 1.045 H (1.000-1.030) Urine Protein 2+ H (Negative) Urine Glucose (UA) Negative (Negative) Urine Ketones Trace H (Negative) Urine Blood Negative (Negative) Urine Nitrite Negative (Negative) Urine Bilirubin 1+ H (Negative) Urine Urobilinogen Negative (Negative) Ur Leukocyte Esterase 1+ H (Negative) Urine WBC (Auto) 5-10 H (0-5) /hpf Urine RBC (Auto) 5-10 H (0-4) /hpf U Hyaline Cast (Auto) 10-30 H (0-5) /lpf U Epithel Cells (Auto) >30 H (0-5) /lpf Urine Bacteria (Auto) Negative (Negative) Ur Renal Epithelial Cell 0-5 (0-5) /lpf Granular Casts 10-20 H (0) /lpf Urine Mucus (None Prsent) SARS-CoV-2, RNA, NAAT (NEGATIVE) 12/10/21 12/10/21 12/10/21 Range/Units 05:42 05:42 05:42 WBC 12.28 H (4.8-10.8) K/uL RBC 3.19 L (4.2-5.4) M/uL Hgb 8.1 L (12.0-16.0) g/dL Hct 27.3 L (37-47) % MCV 85.6 (80-100) fL MCH 25.4 (25-34) pg MCHC 29.7 L (32-36) g/dL RDW Std Deviation 51.3 H (36.4-46.3) fL RDW Coeff of Taylor 16.2 H (11.5-14.5) % Plt Count 424 H (130-400) K/uL MPV 8.2 (7.4-10.4) fL Immature Gran % (Auto) 0.2 % Neut % (Auto) 74.5 % Lymph % (Auto) 13.9 % [place] % (Auto) 9.4 % Eos % (Auto) 1.8 % Baso % (Auto) 0.2 % Neut # (Auto) 9.16 H (1.4-6.5) K/uL Lymph # (Auto) 1.71 (1.2-3.4) K/uL [place] # (Auto) 1.15 H (0.11-0.59) K/uL Eos # (Auto) 0.22 (0-0.5) K/uL Baso # (Auto) 0.02 (0-0.2) K/uL Immature Gran # (Auto) 0.02 (0.00-0.02) K/uL ESR 62 H (0-30) mm/hr PT (9.0-12.0) Seconds INR (0.9-1.1) Sodium 138 (136-145) mmol/L Potassium 3.6 (3.5-5.1) mmol/L Chloride 105 (98-107) mmol/L Carbon Dioxide 27 (21-32) mmol/L Anion Gap 6 (3-11) BUN 12 (6-23) mg/dl Creatinine 0.69 (0.6-1.2) mg/dl Est Cr Clr Drug Dosing 126.9 ml/min Est GFR ( Amer) 112.0 ml/min Est GFR (Non-Af Amer) 96.6 ml/min BUN/Creatinine Ratio 17.4 (10-20) Glucose 92 (70-99(Fasting)) mg/dl Lactate (0.4-2.0) mmol/L Calcium 8.4 L (8.5-10.1) mg/dl Magnesium (1.7-2.4) mg/dl Total Bilirubin (0.2-1.0) mg/dl Direct Bilirubin (0-0.2) mg/dl AST (13-39) U/L ALT (7-52) U/L Alkaline Phosphatase (34-104) U/L Troponin I (0-0.04) ng/ml C-Reactive Protein 13.15 H (0-0.5) mg/dl Total Protein (6.0-8.3) gm/dl Albumin (3.4-5.0) gm/dl Lipase (11-82) U/L Procalcitonin (0-0.5) ng/ml Urine Color Urine Appearance (Clear) Urine pH (4.5-7.5) Ur Specific [place] (1.000-1.030) Urine Protein (Negative) Urine Glucose (UA) (Negative) Urine Ketones (Negative) Urine Blood (Negative) Urine Nitrite (Negative) Urine Bilirubin (Negative) Urine Urobilinogen (Negative) Ur Leukocyte Esterase (Negative) Urine WBC (Auto) (0-5) /hpf Urine RBC (Auto) (0-4) /hpf U Hyaline Cast (Auto) (0-5) /lpf U Epithel Cells (Auto) (0-5) /lpf Urine Bacteria (Auto) (Negative) Ur Renal Epithelial Cell (0-5) /lpf Granular Casts (0) /lpf Urine Mucus (None Prsent) SARS-CoV-2, RNA, NAAT (NEGATIVE) 12/10/21 Range/Units Unknown WBC (4.8-10.8) K/uL RBC (4.2-5.4) M/uL Hgb (12.0-16.0) g/dL Hct (37-47) % MCV (80-100) fL MCH (25-34) pg MCHC (32-36) g/dL RDW Std Deviation (36.4-46.3) fL RDW Coeff of Taylor (11.5-14.5) % Plt Count (130-400) K/uL MPV (7.4-10.4) fL Immature Gran % (Auto) % Neut % (Auto) % Lymph % (Auto) % [place] % (Auto) % Eos % (Auto) % Baso % (Auto) % Neut # (Auto) (1.4-6.5) K/uL Lymph # (Auto) (1.2-3.4) K/uL [place] # (Auto) (0.11-0.59) K/uL Eos # (Auto) (0-0.5) K/uL Baso # (Auto) (0-0.2) K/uL Immature Gran # (Auto) (0.00-0.02) K/uL ESR (0-30) mm/hr PT (9.0-12.0) Seconds INR (0.9-1.1) Sodium (136-145) mmol/L Potassium (3.5-5.1) mmol/L Chloride (98-107) mmol/L Carbon Dioxide (21-32) mmol/L Anion Gap (3-11) BUN (6-23) mg/dl Creatinine (0.6-1.2) mg/dl Est Cr Clr Drug Dosing ml/min Est GFR ( Amer) ml/min Est GFR (Non-Af Amer) ml/min BUN/Creatinine Ratio (10-20) Glucose (70-99(Fasting)) mg/dl Lactate (0.4-2.0) mmol/L Calcium (8.5-10.1) mg/dl Magnesium (1.7-2.4) mg/dl Total Bilirubin (0.2-1.0) mg/dl Direct Bilirubin (0-0.2) mg/dl AST (13-39) U/L ALT (7-52) U/L Alkaline Phosphatase (34-104) U/L Troponin I (0-0.04) ng/ml C-Reactive Protein (0-0.5) mg/dl Total Protein (6.0-8.3) gm/dl Albumin (3.4-5.0) gm/dl Lipase (11-82) U/L Procalcitonin (0-0.5) ng/ml Urine Color Dark Yellow Urine Appearance Clear (Clear) Urine pH 5.0 (4.5-7.5) Ur Specific [place] > 1.045 H (1.000-1.030) Urine Protein 1+ H (Negative) Urine Glucose (UA) Negative (Negative) Urine Ketones Trace H (Negative) Urine Blood Negative (Negative) Urine Nitrite Negative (Negative) Urine Bilirubin Negative (Negative) Urine Urobilinogen Negative (Negative) Ur Leukocyte Esterase Trace H (Negative) Urine WBC (Auto) 1-5 (0-5) /hpf Urine RBC (Auto) 0-4 (0-4) /hpf U Hyaline Cast (Auto) 0 (0-5) /lpf U Epithel Cells (Auto) >30 H (0-5) /lpf Urine Bacteria (Auto) Negative (Negative) Ur Renal Epithelial Cell (0-5) /lpf Granular Casts (0) /lpf Urine Mucus Present A (None Prsent) SARS-CoV-2, RNA, NAAT (NEGATIVE)
[2021-12-10] MEDS: PANTOprazole 40 MG TAB PO SCH (08:14)
[2021-12-10] MEDS: ACETAMINOPHEN 500 MG TAB PO SCH ×2 (08:14→20:33)
[2021-12-10] MEDS: busPIRone 7.5 MG TAB PO SCH ×2 (08:15→20:33)
[2021-12-10] MEDS: oxyCODONE/ACETAMINOPHEN 5mg/325mg TAB PO PRN ×3 (11:49→23:53)
[2021-12-10] MEDS: DULoxetine HCL 20 MG CAP PO SCH (12:00)
[2021-12-10] MEDS: SODIUM CHLORIDE 0.9% 1000ML 1,000 ML IV SCH ×2 (12:01→23:54)
[2021-12-10] MEDS: DAPTOmycin 525 MG in SYRINGE 0 ML IV SCH (13:07)
[2021-12-10] MEDS ORDERED: LORazepam 1 MG TAB PO STA (13:35)
[2021-12-10] MEDS ORDERED: IRON SUCROSE 300 MG in SODIUM CHLORIDE 0.9% 250 ML IV SCH (14:00)
[2021-12-10] MEDS ORDERED: OPTIRAY 320 125ml IV ONE (15:56)
[2021-12-10 16:27] LABS: Hematocrit (blood only) 27.5 % (37-47); Hemoglobin 8.1 g/dL (12.0-16.0)
--- NOTE | 2021-12-10 16:38 | CT Scan Report ---
CT ANGIOGRAPHY OF THE CHEST, PULMONARY EMBOLUS PROTOCOL CLINICAL HISTORY: r/o PE-- post op, hypoxemia, tachycardia COMPARISON STUDY: Chest radiograph December 09, 2021. TECHNIQUE: Following IV administration of 120 mL of Optiray, helical axial images of the chest were o btained utilizing the pulmonary embolus protocol. Maximal intensity projections and sagittal and cor onal reformats were viewed on an independent 3D workstation. IV contrast was administered without co mplication. Automated exposure control was utilized for the study. A dose lowering technique was ut ilized adhering to the principles of ALARA. CT DOSE: 858.34 mGy.cm FINDINGS: No pulmonary emboli are identified although segmental and subsegmental pulmonary arteries are suboptimally assessed due to suboptimal opacification and respiratory motion artifact. There is m ild dilatation of the central pulmonary arteries. Mild cardiomegaly is noted. There is no thoracic ao rtic dissection. No enlarged thoracic lymph nodes are present. There is no consolidation to suggest p neumonia. Linear and ground glass opacities reflect atelectasis. Postoperative findings of the stomac h are noted. Gastric lap band is partially imaged. IMPRESSION: 1. No pulmonary emboli identified although segmental and subsegmental pulmonary arteries suboptimally assessed on this exam due to artifact. 2. No consolidation to suggest pneumonia. 3. Mild cardiomegaly. Mild dilatation of the central pulmonary arteries which raises the possibility of pulmonary arterial hypertension. ACT 112: Negative or not required by law. Electronically signed by: Primo Marcos M.D. 12/10/2021 4:37 PM
--- NOTE | 2021-12-10 18:22 | Hospitalist Progress Note ---
Date of Service December 10, 2021 Assessment & Plan (1) Postoperative wound cellulitis: Plan: * Elective right SREE done 1 month ago at [facility] by Dr. Parker * Approximately 10 days [employer], developed flulike symptoms along with increased right hip pain, redness and swelling * With blood cell count elevated at 14.9. ESR elevated at 62. CRP elevated 13.15. Patient tachycardic at 122. Lactic acid level normal at 1.5. * CT of the hip showed a 12 cm fluid collection concerning for seroma versus abscess in addition to questionable hematoma versus developing abscess of the rectus femoris muscle * Empirically on daptomycin. Seeing as her culture data is showing staph species, will not broaden and add gram-negative coverage at this time as daptomycin would be appropriate for MSSA and MRSA * Will add rifampin as staph aureus has a tendency to create a biofilm * Surgical intervention at discretion of orthopedics (? I&D versus I&D with polyexchange) * Patient will need 6 weeks of IV antibiotics with 3 weeks of rifampin (should hardware remain indwelling) * She will need a PICC line; however, will await for her blood cultures to clear prior to insertion of this (2) Bacteremia: Plan: * Blood culture showing gram-positive cocci in clusters. Suspect will come back yielding staph species * repeat BS in am to ensure ensure clearance-- will need clearance prior to insertion of PICC * Given staph species tendency to migrate, will obtain echocardiogram to rule out vegetation (3) SOB (shortness of breath): Plan: * Patient 1 month postsurgical * She does have underlying asthma * Is not on chronic oxygen * Is currently requiring 2 L of supplemental oxygen and is slightly tachycardic at 122 * Will obtain a CTA to rule out underlying PE/acute pathology (4) Anemia: Plan: * Preop hemoglobin 12.3 * Presenting hemoglobin during this hospitalization 9.4 * Currently 8.1 * Exact etiology unclear * Her Celebrex and aspirin remain on hold given concern for rectus femoris muscle hematoma (patient is s/p gastric bypass and should NOT be on NSAIDS anyway) * This could be contributing to her shortness of breath/dyspnea on exertion (as stated above, CTA being done to rule out PE) * In addition, likely postsurgical * Start Iron supplementation (oral as opposed to IV given bacteremia) * Will trend and if less than 8, transfuse or if plan is for her to go to the operating room, will have low threshold to transfuse in order to get her hemoglobin closer to 9 * Patient is on empiric PPI (5) Low back pain: Plan: * Likely weight related * Again, Celebrex on hold (6) GERD (gastroesophageal reflux disease): Plan: Continue PPI (7) Hypertension: Plan: Controlled - Hemodynamically stable at this time and renal function normal - continue lisinopril- hold if operative decision made (8) Asthma: Plan: Continue MARIO and Flonase spray (9) Sleep apnea: Plan: Sleep study performed 2018- was to have trial of CPAP with autoPAP - never completed, she is no no device - reports no complications post operative with anesthesia and has never had CPAP on. 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 Hospitalized yesterday and on orthopedic service Is s/p right SREE [address] Parker. [facility] Approximately 10 days ago, developed flulike symptoms including fevers, headache, dyspnea on exertion, excessive fatigue, body aches. Reports ongoing fever of 102.8 X 1 week. Shortly after flulike symptoms developed, she noticed that her right hip was red, hot, swollen, and increasingly painful prompting her evaluation into the ED. CT scan showed a fluid collection measuring approximately 12 cm consistent with seroma versus abscess along with questionable hematoma of the rectus femoris muscle Aspirate done yesterday showing preliminary growth of staph aureus. Final culture data pending. In addition, blood cultures are positive for gram- positive cocci in clusters. Overall, she is doing well. She has been slightly tachycardic at 110-120 And requiring supplemental oxygen to maintain a pulse ox of 90% on 2 L. Otherwise she has no complaints. Denies fevers, chills, chest pain, shortness of breath, abdominal pain, nausea or vomiting. Review of Systems Review of Systems: All systems reviewed and are unremarkable except as noted in HPI and below Denies fevers, chills, headache, nasal congestion, sore throat, cough, chest pain, shortness of breath, palpitations, orthopnea, PND, abdominal pain, nausea, vomiting, diarrhea, constipation, dysuria, hematuria, frequency, back pain, easy bruising or bleeding, skin lesions or rashes. Physical Exam Physical Exam: General: Resting comfortably in her hospital bed. She does not appear ill or toxic. NAD. HEENT: Head is AT/NC buccal mucosa is moist and pink Neck: No JVD. Negative hepatojugular reflex Cardiac: RRR but distant due to habitus. No wheezes, rales or rhonchi Lungs: Speaking full sentences on supplemental oxygen without W/R/R Abdomen: Normoactive X4. Soft and nontender in all quadrants. Extremities: Right hip with erythema. Is flocculent. Warm and tender to touch. Distal pulses to the bilateral lower extremities are intact symmetrical. Neuro: A&O X4 cranial nerves II through XII are grossly intact no focal neuro deficits Skin: See above Psych: Appropriate affect pleasant and cooperative Results & Data Results & Data ([facility]) Vital Signs (Past 12 Hours) Vital Signs Temp Pulse Resp BP Pulse Ox 12/10/21 16:40 37.1 C 122 H 16 153/91 H 95 12/10/21 16:10 37.1 C 119 H 18 158/99 H 99 12/10/21 07:32 37.7 C H 120 H 20 135/85 90 Laboratory Results 12/10/21 16:10 12/10/21 05:42 PG Care Time/CCT Total # of Minutes Spent Total Time Spent with Patient: Total time spent is greater than 50% in coordination of care (as documented) at patient's floor/unit and/or counseling patient: Coding Level of Care Code 97429 Inpt Consult Level 5 Diagnoses Postoperative wound cellulitis T81.49XA Low back pain M54.5 GERD (gastroesophageal reflux disease) K21.9 Hypertension I10 Asthma J45.909 Sleep apnea G47.30 Bacteremia R78.81 SOB (shortness of breath) R06.02 Anemia D64.9
[2021-12-10] MEDS: rifAMPin 300 MG CAPSULE PO SCH (20:33)
--- NOTE | 2021-12-11 07:10 | Anesthesiology Consultation ---
Date of Service December 11, 2021 Assessment & Plan (1) Encounter for pre-operative examination: Chart Review Chart Review: Acceptable Risk for Surgery and Patient NOT seen in Pre Admission Testing Consults Requested none History Surgery Operation Date: 12/11/21 08:45 Proposed Procedures p Right Incision and Drainage Hip - Enrique Shelton DO s Total Hip Arthroplasty Anterior - Enrique Shelton DO Height/Weight Height: 5 ft 8 in Weight: 127.6 kg Allergies Allergy/AdvReac Type Severity Reaction Status Date / Time enalapril Allergy Intermediate DYSPEPSIA Verified 12/09/21 12:02 nickel Allergy Mild Blister Verified 12/09/21 12:02 Penicillins Allergy Mild UNKNOWN, Verified 12/09/21 12:02 in childhood metformin AdvReac Mild Diarrhea Verified 12/09/21 12:02 Medications Home Medications Medication Instructions Recorded Confirmed Last Taken cetirizine 10 mg tablet (Zyrtec) 10 mg PO QAM 04/29/19 12/09/21 12/08/21 fluticasone propionate 50 2 sprays INTNAS QAM PRN gm 06/25/19 12/09/21 12/07/21 mcg/actuation nasal spray,suspension pantoprazole 40 mg tablet,delayed 40 mg PO QAM #30 tab 08/11/20 12/09/21 12/08/21 release albuterol sulfate 90 mcg/actuation 2 puff INH Q6H PRN #6.7 g 06/15/21 12/09/21 12/09/21 aerosol inhaler (Ventolin HFA) tramadol 50 mg tablet 50 mg PO BID PRN #7 tab 08/20/21 12/09/21 Unknown lisinopril 20 mg tablet 20 mg PO QAM #90 tab 10/23/21 12/09/21 12/08/21 acetaminophen 500 mg tablet 1,000 mg PO BID tab 11/09/21 12/09/21 12/08/21 (Tylenol Extra Strength) aspirin 81 mg tablet,delayed 81 mg PO BID tab 11/09/21 12/09/21 12/08/21 release celecoxib 200 mg capsule (Celebrex) 200 mg PO BID 11/09/21 12/09/21 12/08/21 buspirone 15 mg tablet 7.5 mg PO BID 12/09/21 12/09/21 12/08/21 duloxetine 20 mg capsule,delayed 20 mg PO QDL 12/09/21 12/09/21 12/08/21 release Active Medications Generic Name Dose Route Start Last Admin Trade Name Manpreet PRN Reason Stop Dose Admin Acetaminophen 500 mg 12/09/21 21:00 12/10/21 20:33 Acetaminophen 500 Mg Tab PO 01/08/22 20:59 500 mg BID PREM Administration Aspirin 81 mg 12/09/21 21:00 12/09/21 21:24 Aspirin 81 Mg Ectab PO 01/08/22 20:59 81 mg BID PREM Administration Buspirone HCl 7.5 mg 12/09/21 21:00 12/10/21 20:33 Buspirone 7.5 Mg Tab PO 01/08/22 20:59 7.5 mg BID PREM Administration Duloxetine HCl 20 mg 12/10/21 11:30 12/10/21 12:00 Duloxetine Hcl 20 Mg Cap PO 01/09/22 11:29 20 mg QDL PREM Administration Hydromorphone HCl 1 mg 12/09/21 13:29 12/09/21 21:23 Hydromorphone Inj 1 Mg/Ml Syringe IV 12/23/21 13:28 1 mg Q15M PRN Administration Pain Sodium Chloride 1,000 mls @ 100 mls/hr 12/09/21 18:50 12/10/21 23:54 Nss 1000ml IV 01/08/22 18:49 100 mls/hr .Q10H PREM Administration Daptomycin 525 mg/ Syringe 10.5 mls @ 5.25 mls/min 12/10/21 13:00 12/10/21 13:07 IV 12/11/21 13:01 5.25 mls/min DAILY@1300 PREM Administration Protocol Oxycodone/Acetaminophen 1 - 2 tab 12/09/21 18:50 12/10/21 23:53 Oxycodone/Acetaminophen 5mg/325mg Tab PO 12/23/21 18:49 2 tab Q4H PRN Administration Pain Pantoprazole Sodium 40 mg 12/10/21 09:00 12/10/21 08:14 Pantoprazole 40 Mg Tab PO 01/09/22 08:59 40 mg QAM PREM Administration Rifampin 300 mg 12/10/21 21:00 12/10/21 20:33 Rifampin 300 Mg Capsule PO 01/21/22 20:59 300 mg BID PREM Administration Tramadol HCl 50 mg 12/09/21 18:50 12/10/21 08:14 Tramadol Hcl 50 Mg Tablet PO 01/08/22 18:49 50 mg BID PRN Administration pain Past Medical History Medical History Acid reflux ADHD Allergic rhinitis Asthma Asymmetrical hearing loss of right ear Chronic obstructive pulmonary disease Chronic sinusitis Depression with anxiety Hypertension Insomnia Lumbar degenerative disc disease Peripheral vascular disease Sleep apnea Vitamin B12 deficiency Vitamin D deficiency Past Family History Family History Aunt Brain cancer Breast cancer Mother Stroke Father Lung cancer Kidney cancer, primary, with metastasis from kidney to other site Other No family history of adverse response to anesthesia Denies family history of Colon cancer Ovarian cancer Past Surgical History Surgical History H/O nasal polypectomy History of colposcopy History of cryosurgery for cervix History of esophagogastroduodenoscopy (EGD) History of hysteroscopy with endometrial ablation History of left knee replacement (~09/15/20) Hx of colonoscopy S/P S/P cataract surgery both S/P cholecystectomy S/P gastric surgery gastric bypass, then a revision and a lap band 10/2019 Social History Smoking Status: Never smoker Hx Alcohol Use: Yes Alcohol type: wine alcohol intake frequency: holidays/special occasions only Hx Substance Use: No substance use type: does not use Physical Exam Vital Signs Last Vital Signs Temp 38.2 C H 12/10/21 23:50 Pulse 109 H 12/10/21 23:50 Resp 18 12/10/21 23:50 BP 109/66 12/10/21 23:50 Pulse Ox 92 12/10/21 23:50 Testing Laboratory Results 12/10/21 16:10 12/10/21 05:42 PT 10.8 Seconds (9.0-12.0) 12/09/21 10:13 INR 1.1 (0.9-1.1) 12/09/21 10:13 Urine Color Dark Yellow 12/10/21 Unknown Urine Appearance Clear (Clear) 12/10/21 Unknown Urine pH 5.0 (4.5-7.5) 12/10/21 Unknown Ur Specific Clay > 1.045 (1.000-1.030) H 12/10/21 Unknown Urine Protein 1+ (Negative) H 12/10/21 Unknown Urine Glucose (UA) Negative (Negative) 12/10/21 Unknown Urine Ketones Trace (Negative) H 12/10/21 Unknown Urine Nitrite Negative (Negative) 12/10/21 Unknown Ur Leukocyte Esterase Trace (Negative) H 12/10/21 Unknown Urine WBC (Auto) 1-5 /hpf (0-5) 12/10/21 Unknown Urine RBC (Auto) 0-4 /hpf (0-4) 12/10/21 Unknown U Hyaline Cast (Auto) 0 /lpf (0-5) 12/10/21 Unknown U Epithel Cells (Auto) >30 /lpf (0-5) H 12/10/21 Unknown Urine Bacteria (Auto) Negative (Negative) 12/10/21 Unknown 12/09/21 16:00 Gram Stain - Final Hip,Right Aerobic and Anaerobic Culture - Preliminary Staphylococcus aureus 12/09/21 10:15 Aerobic Blood Culture - Preliminary Blood Gram positive cocci clusters Anaerobic Blood Culture - Preliminary Gram positive cocci clusters 12/09/21 10:13 Aerobic Blood Culture - Preliminary Blood No growth in Aerobic bottle after 24 hours. Anaerobic Blood Culture - Preliminary No growth in Anaerobic bottle after 24 hours. Electrocardiogram Date: 12/09/21 Findings: + NSST changes Chest X-Ray Date: 12/09/21 Findings: + NAD Pulmonary Function Test Date: 07/02/19 mild restrictive disease Other Testing 12/10/[address] PE Protocol: No pulmonary embolism noted
[2021-12-11] MEDS: SODIUM CHLORIDE 0.9% 1000ML 1,000 ML IV SCH (07:27)
[2021-12-11] MEDS: PANTOprazole 40 MG TAB PO SCH (07:33)
[2021-12-11] MEDS: HYDROmorphone INJ 1 MG/ML SYRINGE IV PRN (07:33)
[2021-12-11 07:58] LABS: Basophils # (auto) 0.01 K/uL (0-0.2); Basophils % (auto) 0.1 %; Eosinophils # (auto) 0.32 K/uL (0-0.5); Eosinophils % (auto) 2.2 %; Hematocrit (blood only) 27.4 % (37-47); Hemoglobin 8.1 g/dL (12.0-16.0); Immature Granulocytes # (auto) 0.07 K/uL (0.00-0.02); Immature Granulocytes % (auto) 0.5 %; Lymphocytes # (auto) 1.44 K/uL (1.2-3.4); Lymphocytes % (auto) 9.9 %; Mean Corpuscular Hemoglobin 24.9 pg (25-34); Mean Corpuscular Hgb Conc 29.6 g/dL (32-36); Mean Corpuscular Volume 84.3 fL (80-100); Mean Platelet Volume 8.3 fL (7.4-10.4); Monocytes # (auto) 1.22 K/uL (0.11-0.59); Monocytes % (auto) 8.4 %; Neutrophils # (auto) 11.55 K/uL (1.4-6.5); Neutrophils % (auto) 78.9 %; Platelet Count 436 K/uL (130-400); RDW Coefficient of Variation 16.2 % (11.5-14.5); RDW Standard Deviation 50.3 fL (36.4-46.3); Red Blood Count 3.25 M/uL (4.2-5.4); White Blood Count 14.61 K/uL (4.8-10.8)
[2021-12-11 08:26] LABS: BUN Creatinine Ratio 14.3 (10-20); Calcium 8.2 mg/dl (8.5-10.1); Est GFR (African American) 115.4 ml/min; Est GFR (Non-African American) 99.6 ml/min; Magnesium 1.9 mg/dl (1.7-2.4); Potassium 3.5 mmol/L (3.5-5.1)
--- NOTE | 2021-12-11 08:39 | XCELERA ---
[id number]
--- NOTE | 2021-12-11 12:16 | Orthopedic Consultation ---
Date of Service December 11, 2021 Assessment & Plan (1) Post-operative infection: I discussed her diagnosis and treatment options with her at bedside. It is my recommendation that we proceed with an open irrigation and debridement with possible head and polyexchange of the right hip. She understands the risk benefits alternatives procedure elected proceed question were answered at bedside and consents were signed. Time was spent scribed procedure and postop expectations. She will likely be on IV antibiotics postoperatively. History of Present Illness Reason for Consultation: Infected right hip replacement Requesting Physician: . Attending Physician: Tang Ferreira DO Jojo is a pleasant 56-year-old female who underwent a right anterior total hip arthroplasty by Dr. Parker in [place] about 5 weeks ago. She was doing well for the first 4 weeks. About a week ago she began noticing increased fever and chills. She the MB began having pain in her right hip and difficulty walking. She came to the emergency room where she was noticed to be febrile and have an elevated white blood cell count. CT scan of the right hip showed several fluid collections. Dr. Parker is currently out of town. After discussions with his partners, we elected to proceed with an irrigation debridement of the right hip Allergies Allergy/AdvReac Type Severity Reaction Status Date / Time enalapril Allergy Intermediate DYSPEPSIA Verified 12/09/21 12:02 nickel Allergy Mild Blister Verified 12/09/21 12:02 Penicillins Allergy Mild UNKNOWN, Verified 12/09/21 12:02 in childhood metformin AdvReac Mild Diarrhea Verified 12/09/21 12:02 Home Medications Medication Instructions Recorded Confirmed Type cetirizine 10 mg tablet (Zyrtec) 10 mg PO QAM 04/29/19 12/09/21 History fluticasone propionate 50 2 sprays INTNAS QAM PRN gm 06/25/19 12/09/21 History mcg/actuation nasal spray,suspension pantoprazole 40 mg tablet,delayed 40 mg PO QAM #30 tab 08/11/20 12/09/21 Rx release albuterol sulfate 90 mcg/actuation 2 puff INH Q6H PRN #6.7 g 06/15/21 12/09/21 Rx aerosol inhaler (Ventolin HFA) tramadol 50 mg tablet 50 mg PO BID PRN #7 tab 10/10/21 01/29/22 Rx lisinopril 20 mg tablet 20 mg PO QAM #90 tab 10/23/21 12/09/21 Rx acetaminophen 500 mg tablet 1,000 mg PO BID tab 11/09/21 12/09/21 History (Tylenol Extra Strength) aspirin 81 mg tablet,delayed 81 mg PO BID tab 11/09/21 12/09/21 History release celecoxib 200 mg capsule (Celebrex) 200 mg PO BID 11/09/21 12/09/21 History buspirone 15 mg tablet 7.5 mg PO BID 12/09/21 12/09/21 History duloxetine 20 mg capsule,delayed 20 mg PO QDL 12/09/21 12/09/21 History release Past Med/Surg History Medical History Acid reflux ADHD Allergic rhinitis Asthma inhaler daily/prn Asymmetrical hearing loss of right ear Chronic obstructive pulmonary disease Chronic sinusitis Depression with anxiety Hypertension Insomnia Lumbar degenerative disc disease Peripheral vascular disease Sleep apnea no device Vitamin B12 deficiency Vitamin D deficiency Surgical History H/O nasal polypectomy History of colposcopy History of cryosurgery for cervix History of esophagogastroduodenoscopy (EGD) History of hysteroscopy with endometrial ablation History of left knee replacement (~09/15/20) Hx of colonoscopy S/P S/P cataract surgery both S/P cholecystectomy S/P gastric surgery gastric bypass, then a revision and a lap band 10/2019 Family History Aunt Brain cancer Breast cancer Mother Stroke Father Lung cancer Kidney cancer, primary, with metastasis from kidney to other site Other No family history of adverse response to anesthesia Denies family history of Colon cancer Ovarian cancer Social History Smoking Status: Never smoker Second Hand Exposure: No; Hx Alcohol Use: Yes Alcohol type: wine Hx Substance Use: No Preferred Language: Eritrean Communication Ability: Effective Visual Impairment: No Limitations Hearing Ability: Normal Volunteer Services Supervisor Required: No Beliefs That Will Affect Care: None marital status: Current Living Situation: Family Current Living Situation Comment: Lives with daughter current occupational status: employed Feels Safe at Home: Yes Dental Care, Regularly: Yes Physical Activity Frequency: 1-2 Times per Week Physical Activity Frequency Comment: Physical therapy for left knee replacement Seatbelt Use: always Sunscreen Use: Yes Assistive Devices: Walker Review of Systems All systems reviewed & are unremarkable except as noted in HPI & below. Physical Exam Physical examination of the right hip, the incision is closed. There is erythema. Is indurated. It is painful to touch. Her leg lengths are equal. She does have pain with range of motion of her right hip. Constitutional WD/WN, vitals as above Eyes PERRL, conjunctivae normal, anicteric sclerae ENMT external ear and nose normal, oropharynx normal Neck trachea midline, no thyromegaly Respiratory normal respiratory effort Cardiovascular RRR, no murmur, no edema Gastrointestinal (Abdomen) normal bowel sounds, soft, nontender, no hepatosplenomegaly Psychiatric A+Ox3, euthymic affect Results & Data Results & Data Laboratory Results . Diagnostic Findings CT scan of the right hip does show a large fluid collection. The hip prosthesis appears to be in anatomic alignment. PG Care Time/CCT Total # of Minutes Spent Total Time Spent with Patient: Total time spent is greater than 50% in coordination of care (as documented) at patient's floor/unit and/or counseling patient: Coding Level of Care Code 20624 Inpt Consult Level 4 Diagnoses Post-operative infection T81.42XA Encounter type: initial encounter Postoperative infection type: deep incisional surgical site (1) Post-operative infection Encounter type: initial encounter Postoperative infection type: deep incisional surgical site Qualified Code(s): T81.42XA - Infection following a procedure, deep incisional surgical site, initial encounter
[2021-12-11] MEDS ORDERED: LIDOCAINE 2% 2 ML VIAL/AMP(20MG/ML) INFIL ONE (12:32)
[2021-12-11] MEDS ORDERED: MIDAZOLAM HCL 1 MG/ML 2ML VIAL ONE (12:32)
[2021-12-11] MEDS ORDERED: PROPOFOL IV EMULSION 10 MG/ML 20 ML VIAL IV ONE (12:32)
[2021-12-11] MEDS ORDERED: ONDANSETRON INJ 2 MG/ML 2 ML VIAL ONE (12:32)
[2021-12-11] MEDS ORDERED: fentaNYL citrate 100 MCG/2 ML VIAL ONE ×3 (12:32→14:40)
[2021-12-11] MEDS ORDERED: ceFAZolin 330 MG/ML 1 GM VIAL ONE (12:55)
[2021-12-11 12:58] LABS: Appearance Urine Cloudy (Clear); Bacteria Urine Automated Negative (Negative); Blood Urine Trace (Negative); Color Urine Orange; Epithelial Cell Urine Auto >30 /lpf (0-5); Glucose Urine UA Negative (Negative); Ketones Urine Trace (Negative); Leukocyte Esterase Urine 1+ (Negative); Nitrite Urine Positive (Negative); Protein Urine 1+ (Negative); Urobilinogen Urine Negative (Negative)
[2021-12-11 13:01] LABS: Bilirubin Urine 1+ (Negative)
[2021-12-11] MEDS ORDERED: VANCOMYCIN HCL 1000MG/20ML VIAL ONE (13:04)
[2021-12-11 13:10] LABS: Calcium Oxalate Crystals Urine Present (None Prsent); Mucus Urine Present (None Prsent); RBC Urine Automated 0-4 /hpf (0-4)
[2021-12-11] MEDS ORDERED: ACETAMINOPHEN 1000 MG/100 ML IV IV ONE (13:13)
[2021-12-11] MEDS ORDERED: ALBUMIN HUMAN 5% 12.5 GM/250 ML VIAL IV ONE (13:13)
[2021-12-11] MEDS ORDERED: DAKIN'S SOLN 0.25% HALF STRENGTH 473ML BTL EXT ONE (13:15)
--- NOTE | 2021-12-11 13:34 | Hospitalist Progress Note ---
Date of Service December 11, 2021 Assessment & Plan (1) Prosthetic joint infection: Plan: * Elective right SREE done 1 month ago at [facility] by Dr. Parker * Approximately 10 days [employer]ACHIN[employer], developed flulike symptoms along with increased right hip pain, redness and swelling * WBC elevated at 14.9. ESR elevated at 62. CRP elevated 13.15. Patient tachycardic at 122. Lactic acid level normal at 1.5. * CT of the hip showed a 12 cm fluid collection concerning for seroma versus abscess in addition to questionable hematoma versus developing abscess of the rectus femoris muscle * Empirically on daptomycin. * Culture data (from the right hip) showing MSSA. Will keep dapto for now as uncertain if the BC are real of contaminant (see below). * Rifampin added as staph aureus has a tendency to create a biofilm (given indwelling hardward) * for OR today-- for I&D +/- polyexchange * Patient will need 6 weeks of IV antibiotics with 3 weeks of rifampin (should hardware remain indwelling) * She will need a PICC line; however, will await for her blood cultures to clear prior to insertion of this (again, uncertain if BC real or contaminant). Repeat cultures taken this am * PICC consent obtained * spoke to who is looking into home abx coverage * on 12/11: patient still with a fever, increased leukocytosis and tachycardia. Dapot does provide adequate coverage for MSSA in wound and coag neg staph in blood (if real). No evidence of gram neg or anaerobe at this time. I suspect this continued clinical source is based on the persistent abscess (again, or OR today) * Ultimately, treatment of choice would be nafcillin which could be given via an infusion ball (daily). This would allow for home antibiotic treatment pending her insurance covers this. She does have a reported allergy to penicillin but this was a childhood allergy and her reaction is unknown. She vocalizes that she has had and tolerated amoxicillin in the past. Can consider penicillin tr ial while in house (2) SOB (shortness of breath): Plan: * CTA done showing no evidence of PE/intrapulmonary process * no longer c/o SOB or requiring O2 today * likely related to asthma/JONH and perhaps complicated by anemia (however, h/h stable today and no longer c/o SOB) (3) Tachycardia: Plan: * sinus tachycardia and likely related to #1 and compensatory mechani sms/catecholamine response * will follow clinically (4) Positive blood culture: Plan: * Initially it was looking as if patient's blood cultures were showing staph aureus. With the positive aspirate from the right hip now growing MSSA, it was thought that she had associated bacteremia with this * In talking with microbiology, 1 out of 2 sets of her blood cultures were positive (2/4 tubes-- but same stick). Both the aerobic and anaerobic tube seemed to have a coag negative staph species not lugdunensis. The other has an additional staph species that is not MRSA or MSSA (DNA has identified neither of these). In talking with the lab, they have sent this off for further identification to rule out lugdunensis * I am uncertain if either of these are real. Given the fact that neither speciation is matching her hip, I am suspicious that this could be a contaminated specimen * Despite that, she still is tachycardic and febrile. Again, this could be due to the indwelling abscess (for I&D today) but I do not want to de-escalate her coverage just yet as daptomycin would provide adequate coverage for coag negative staph including lugdunensis * in addition, her UA does seem to be grossly infected. Will obtain culture data and add rocephin (for added gram - coverage). Again, patient with reported "PCN" allergy as a kid but "tolerated amoxil" in the past. I feel comfortably trying Rocephin (5) Anemia: Plan: * Preop hemoglobin 12.3 * Presenting hemoglobin during this hospitalization 9.4 * Currently 8.1 (and stable) * Exact etiology unclear but suspect multifactorial (? Rectus femoris muscle hematoma, postoperative anemia, and dilutional state) * Her Celebrex and aspirin remain on hold given concern for rectus femoris muscle hematoma (patient is s/p gastric bypass and should NOT be on NSAIDS anyway) * This could be contributing to her shortness of breath/dyspnea on exertion (see above) * Started on Iron supplementation (oral as opposed to IV given bacteremia) * Will continue to trend and if less than 8, transfuse (written consent obtained) * Patient is on empiric PPI (6) Hematuria: Plan: * pt with rich hematuria * UA is grossly infected (leukocyte esterase and nitrite positive) * add rocephin empirically (Again, patient with reported "PCN" allergy as a kid but "tolerated amoxil" in the past. I feel comfortably trying Rocephin) and awaiting final culture data (7) Hypertension: Plan: * Hemodynamically stable at this time and renal function normal * continue lisinopril (8) Asthma: Plan: * Continue MARIO and Flonase spray (9) GERD (gastroesophageal reflux disease): Plan: * continue PPI (10) Sleep apnea: Plan: Sleep study performed 2019- was to have trial of CPAP with autoPAP - never completed, she has no device - reports no complications post operative with anesthesia and has never had CPAP on. - Recommend following up as outpatient to decrease terminal supervisor morbidity Plan: plan of care to be D/W Dr. Calero. Further orders as warranted Admission and Anticipated Discharge Date Admission Date: December 09, 2021 Subjective Patient seen on daily rounds today. Overall, reports feeling significantly better compared to when she first came in. She is complaining of some rich blood in her urine which is new. Denies dysuria or suprapubic discomfort. Did have a temperature spike late this morning of 102.02 and is still tachycardic. Her right hip started draining pus. Otherwise, denies feeling "ill" as she had been. For the OR today for I&D and possible polyexchange. Review of Systems Review of Systems: All systems reviewed and are unremarkable except as noted in HPI and below Denies fevers, chills, headache, nasal congestion, sore throat, cough, chest pain, shortness of breath, palpitations, orthopnea, PND, abdominal pain, nausea, vomiting, diarrhea, constipation, dysuria, hematuria, frequency, back pain, easy bruising or bleeding, skin lesions or rashes. Physical Exam Physical Exam: General: Resting comfortably in her hospital bed. She does not appear ill or toxic. NAD. HEENT: Head is AT/NC buccal mucosa is moist and pink Neck: No JVD. Negative hepatojugular reflex Cardiac: RRR but distant due to habitus. No wheezes, rales or rhonchi Lungs: Speaking full sentences on supplemental oxygen without W/R/R Abdomen: Normoactive X4. Soft and nontender in all quadrants. Extremities: Right hip with erythema. Is flocculent. Warm and tender to touch. Mucopurulent drainage from the right hip. Distal pulses to the bilateral lower extremities are intact symmetrical. Neuro: A&O X4 cranial nerves II through XII are grossly intact no focal neuro deficits Skin: See above Psych: Appropriate affect pleasant and cooperative Results & Data Results & Data ([facility]) Vital Signs (Past 12 Hours) Vital Signs Temp Pulse Pulse Resp BP Pulse Ox 12/11/21 11:41 38.9 C H 128 H 20 158/95 H 100 12/11/21 07:18 37.7 C H 110 H 16 158/90 H 98 Laboratory Results 12/11/21 07:44 12/11/21 07:44 Microbiology 12/09/21 10:15 Aerobic Blood Culture - Preliminary Blood Staphylococcus species Coag neg staph not lugdunensis Anaerobic Blood Culture - Preliminary Coag neg staph not lugdunensis 12/09/21 10:13 Aerobic Blood Culture - Preliminary Blood No growth in Aerobic bottle after 48 hours. Anaerobic Blood Culture - Preliminary No growth in Anaerobic bottle after 48 hours. 12/09/21 16:00 Gram Stain - Final Hip,Right Aerobic and Anaerobic Culture - Preliminary Staphylococcus aureus ANTIBIOTIC ORG 1 Clindamycin S Daptomycin S Erythromycin S Oxacillin S Tetracycline S Trimethoprim/Sulfamethoxazole S Vancomycin S Diagnostic Findings CTA: IMPRESSION: 1. No pulmonary emboli identified although segmental and subsegmental pulmonary arteries suboptimally assessed on this exam due to artifact. 2. No consolidation to suggest pneumonia. 3. Mild cardiomegaly. Mild dilatation of the central pulmonary arteries which raises the possibility of pulmonary arterial hypertension. PG Care Time/CCT Total # of Minutes Spent Total Time Spent with Patient: Total time spent is greater than 50% in coordination of care (as documented) at patient's floor/unit and/or counseling patient: Coding Level of Care Code 58027 Subseq Hosp Care Lvl 2 Diagnoses Prosthetic joint infection T84.50XA SOB (shortness of breath) R06.02 Tachycardia R00.0 Positive blood culture R78.81 Anemia D64.9 Hypertension I10 Asthma J45.909 GERD (gastroesophageal reflux disease) K21.9 Sleep apnea G47.30 Hematuria R31.9
[2021-12-11] MEDS ORDERED: VASOPRESSIN 20 UNIT/ML VIAL ONE (13:51)
[2021-12-11] MEDS ORDERED: ROCURONIUM BROMIDE 10 MG/ML 5 ML VIAL IV ONE (13:51)
[2021-12-11] MEDS ORDERED: SUCCINYLCHOLINE CHLORIDE 20 MG/ML 10 ML VIAL IV ONE (13:51)
[2021-12-11] MEDS ORDERED: PHENYLEPHRINE HCL 10 MG/ML VIAL ONE (13:52)
[2021-12-11] MEDS ORDERED: NEOSTIGMINE METHYLSULFATE 1 MG/ML 10ML VIAL ONE (14:01)
[2021-12-11] MEDS ORDERED: GLYCOPYRROLATE 0.2 MG/ML VIAL ONE (14:01)
--- NOTE | 2021-12-11 14:07 | Operative Report ---
PG Post Operative Report Pre & Post Diagnosis Operation Date: 12/11/21 08:45 Pre-Op Diagnosis: Superficial infection of the right hip Post-Op Diagnosis: Superficial infection of the right hip I identified the patient and participated in the time-out.: Yes Procedure Operation Date: 12/11/21 08:45 Actual Procedures p Right Hip Irrigation and Debridement Anterior Approach(Right) - Enrique Shelton DO Surgeon Enrique Shelton, Retail General Manager Enrique Lazo PAC Estimated Blood Loss 100 Findings Consistent with Post-Op Diagnosis Specimens Cultures Complications none Disposition Disposition: Recovery Room Indications Jojo is a pleasant 56-year-old female who underwent a right anterior total hip arthroplasty by Dr. Parker about 5 weeks ago. She was doing well until about a week ago she began having pain in the right hip. She was symptomatic. She came to the emergency room and was admitted to the hospital. CT scan of the right hip did show a large abscess collection which appeared mostly superficial. She elected proceed with an irrigation debridement of the right hip Description of Procedure On December 11, 2021 Jojo was brought down from her hospital room to the preoperative holding area. The operative extremity identified and signed. She was taken back to the operating room and laid on the table in supine position. She was put under general anesthesia. The right hip was brought out to a purist leg positioner. The right hip was then prepped and draped in sterile fashion. A timeout was done. The patient and the operative extremity was properly identified. The previous incision was opened. There was a very large amount of purulent discharge from superficial abscess collection. Time was spent irrigating this out. Cultures were obtained. Once the abscess was completely evacuated it was inspected. I did not see any areas were communicated with the joint. I then made a small incision towards the joint to see if it possibly went any deeper. There was absolutely no evidence of deeper penetration of this abscess. The surrounding capsule of the abscess was meticulously debrided. The wound was irrigated with 6 L of normal saline solution. The wound was then irrigated with Dakin solution for 3 minutes followed by a Betadine lavage for 3 minutes. The wound was once again irrigated with 3 L of saline solution with cefazolin. X- ray was then brought in. A spinal needle was used to aspirate the deep hip joint. I was unable to aspirate any fluid from the hip joint. There was essentially a dry tap. The abscess wound was then closed with #0 PDS suture. Time was spent to completely collapsed down all space. 2 drains were placed. Superficial skin was closed with 2-0 Vicryl and 3-0 nylon suture. A soft dressing was placed. She was then extubated and transferred [facility]. She was taken to the postanesthesia care unit in stable condition. She tolerated the procedure well. Enrique Lazo PA-C, was present for the entire procedure. He was critical for patient positioning, prepping, draping, retraction exposure, wound closure and application of sterile dressing. I attest to the content of the Intraoperative Record and any orders documented therein. Any exceptions are noted below.
[2021-12-11] MEDS ORDERED: ALBUTEROL HFA INHALER 8.5 GM ONE (14:11)
[2021-12-11] MEDS ORDERED: MAGNESIUM HYDROXIDE SUSP 30 ML UDC PO PRN (14:12)
[2021-12-11] MEDS ORDERED: NALOXONE HCL 0.4 MG/1 ML VIAL/CARP IV PRN (14:12)
[2021-12-11] MEDS ORDERED: bisacodyL 10 MG SUPP PR PRN (14:12)
[2021-12-11] MEDS ORDERED: ONDANSETRON INJ 2 MG/ML 2 ML VIAL IV PRN ×2 (14:12→14:40)
[2021-12-11] MEDS ORDERED: SODIUM CHLORIDE 0.9% 1000ML 1,000 ML IV SCH (14:15)
--- NOTE | 2021-12-11 14:22 | Fluoroscopy Report ---
FL hip RT 1V CLINICAL HISTORY: ANTERIOR HEAD EXCHANGE COMPARISON STUDY: Right hip CT 12/09/2021. FLUOROSCOPY TIME: 3 seconds. FINDINGS: A single fluoroscopic spot image of the right hip demonstrates a right total arthroplasty. The hardware appears intact. No fracture or dislocation within the visualized right hip. There is a n eedlelike metallic density overlying the right lateral hip. IMPRESSION: Fluoroscopic assistance provided for exchange of a right femoral prosthesis. ACT 112: Negative or not required by law. Electronically signed by: Joe Ojeda M.D. 12/11/2021 2:21 PM
[2021-12-11] MEDS: ACETAMINOPHEN 500 MG TAB PO SCH (14:38)
[2021-12-11] MEDS: FERROUS SULFATE 325 MG TAB PO SCH ×2 (14:38→17:46)
[2021-12-11] MEDS: DAPTOmycin 525 MG in SYRINGE 0 ML IV SCH (14:39)
[2021-12-11] MEDS ORDERED: ATROPINE SULFATE 0.1 MG/ML 10ML SYR IV PRN (14:40)
[2021-12-11] MEDS ORDERED: HYDROmorphone INJ 1 MG/ML SYRINGE IV PRN (14:40)
[2021-12-11] MEDS ORDERED: fentaNYL citrate 100 MCG/2 ML VIAL IV PRN (14:40)
[2021-12-11] MEDS ORDERED: ePHEDrine sulfate 50 MG/ML AMP IV PRN (14:40)
[2021-12-11] MEDS: cefTRIAXone SODIUM 2,000 MG in DEXTROSE 5% 50 ML IV SCH (15:14)
[2021-12-11] MEDS: HYDROmorphone INJ 0.5 MG/0.5 ML SYR IV PRN (15:17)
--- NOTE | 2021-12-11 15:33 | Anesthesiology Progress Note ---
Date of Service December 11, 2021 Anesthesia Post Procedure Vital Signs Vital Signs: Temp Pulse Pulse Pulse Pulse Resp BP 12/11/21 15:05 37 C 105 H 16 12/11/21 14:50 37.0 C 108 H 16 12/11/21 14:40 111 H 16 12/11/21 14:30 37.1 C 113 H 20 12/11/21 11:41 38.9 C H 128 H 20 12/11/21 07:18 37.7 C H 110 H 16 12/10/21 23:50 38.2 C H 109 H 18 12/10/21 22:28 39.3 C H 121 H 18 12/10/21 18:13 37.7 C H 124 H 16 154/84 H 12/10/21 16:40 37.1 C 122 H 16 153/91 H 12/10/21 16:10 37.1 C 119 H 18 158/99 H BP Pulse Ox 12/11/21 15:05 105/62 100 12/11/21 14:50 115/60 97 12/11/21 14:40 127/63 94 12/11/21 14:30 127/64 96 12/11/21 11:41 158/95 H 100 12/11/21 07:18 158/90 H 98 12/10/21 23:50 109/66 92 12/10/21 22:28 153/79 H 92 12/10/21 18:13 98 12/10/21 16:40 95 12/10/21 16:10 99 Pain Intensity Right Hip: Pain Intensity: 9 Transfer of Care Handoff Completed per policy Notes Mental Status: alert / awake / arousable and participated in evaluation Patient Amnestic to Procedure: Yes Nausea / Vomiting: adequately controlled Pain: adequately controlled Airway Patency, RR, SpO2: stable & adequate BP & HR: stable & adequate Hydration State: stable & adequate Anesthetic Complications: no major complications apparent and Pt Satisfied with anesthetic care
[2021-12-11 16:23] LABS: Hematocrit (blood only) 22.1 % (37-47); Hemoglobin 6.6 g/dL (12.0-16.0)
[2021-12-11] MEDS ORDERED: diphenhydrAMINE Capsule 25 MG CAP PO ONE (16:29)
[2021-12-11] MEDS ORDERED: SODIUM CHLORIDE 0.9% 250 ML IV PRN (16:29)
[2021-12-11] MEDS ORDERED: ACETAMINOPHEN 325 MG TAB PO ONE (16:29)
[2021-12-11] MEDS ORDERED: FUROSEMIDE 40 MG/4 ML VIAL IV SCH (17:00)
[2021-12-11] MEDS: busPIRone 7.5 MG TAB PO SCH ×2 (17:45→20:05)
[2021-12-11] MEDS: rifAMPin 300 MG CAPSULE PO SCH ×2 (17:45→20:05)
[2021-12-11] MEDS: DULoxetine HCL 20 MG CAP PO SCH (17:46)
[2021-12-11] MEDS: ASPIRIN 81 MG ECTAB PO SCH (20:04)
[2021-12-11] MEDS: DOCUSATE SODIUM 100 MG CAP PO SCH (20:05)
[2021-12-11] MEDS: oxyCODONE/ACETAMINOPHEN 5mg/325mg TAB PO PRN ×2 (20:05→23:47)
[2021-12-11] MEDS: SENNA 8.6 MG TAB PO SCH (20:08)
[2021-12-12] MEDS ORDERED: diphenhydrAMINE 50 MG/ML VIAL IV STA (03:51)
[2021-12-12] MEDS: oxyCODONE/ACETAMINOPHEN 5mg/325mg TAB PO PRN ×3 (03:59→15:49)
--- NOTE | 2021-12-12 08:06 | Hospitalist Progress Note ---
Date of Service December 12, 2021 Assessment & Plan (1) Prosthetic joint infection: Plan: * Elective right SREE done 1 month ago at [facility] by Dr. 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 ESR elevated at 62. CRP elevated 13.15. Patient tachycardic at 122. Lactic acid level normal at 1.5. * CT of the hip showed a 12 cm fluid collection concerning for seroma versus abscess in addition to questionable hematoma versus developing abscess of the rectus femoris muscle * Empirically started on daptomycin (with plan to likely transition to Nafc illin). Pt with reported PCN allergy but saw Dr. Mcclain in the past for PCN allergy testing. Staff called this office and they did verify that patient had it done in 2012 and she DOES NOT have a PCN allergy but they are unable to fax this documentation given how long ago it was. Awaiting final BC (as thought to be a contaminant) but plan is to likely do PenVK trial and if tolerant, start Nafcillin As this can be given in a 24-hour infusion ball for home use * Culture data (from the right hip) showing MSSA. Will keep dapto for now as uncertain if the BC are real of contaminant (see below). * Rifampin added as staph aureus has a tendency to create a biofilm (given indwe lling hardware) * is s/p I&D (12/11)-- ortho reports abscess was superficial but that a washout of the joint space was done prophylactically * Patient will need 6 weeks of IV antibiotics with 3 weeks of rifampin * She will need a PICC line; however, will await for her blood cultures to clear prior to insertion of this (again, uncertain if BC real or contaminant). Repeat cultures taken 12/11 and NGTD * PICC consent obtained * spoke to who is looking into home abx coverage * ASA placed on board by [facility] for DVT prophylaxis; however, with her h/o Gastric bypass--will not break down the EC and shouldn't use plain ASA given risk of ulcer. H/H stable thus will utilize lovenox for DVT prophlaxis while in house. Will not need additional prophylaxis upon D/C as initial surgery 30+ days ago * spoke to Ortho and will transfer to medicine service * 12/12: she seems to have defervesced. HR and WBC improving (2) SOB (shortness of breath): Plan: * noted on hospital day #1 and now resolved * CTA done showing no evidence of PE/intrapulmonary process * likely related to asthma/JONH and perhaps complicated by anemia (however, h/h stable today and no longer c/o SOB) (3) Tachycardia: Plan: * sinus tachycardia and likely related to #1 and compensatory mechanisms/catecholamine response * will follow clinically (4) Positive blood culture: Plan: * Initially it was looking as if patient's blood cultures were showing staph aureus. With the positive aspirate from the right hip now growing MSSA, it was thought that she had associated bacteremia with this * In talking with microbiology, 1 out of 2 sets of her blood cultures were posi tive (2/4 tubes-- but same stick). Both the aerobic and anaerobic tube seemed to have a coag negative staph species not lugdunensis. The other has an additional staph species that is not MRSA or MSSA (DNA has identified neither of these). In talking with the lab, they have sent this off for further identification to rule out lugdunensis. once this can be confirmed, will likely change to the Nafcillin as above (which does cover lugdunensis but there is a 50% resistance of this) * Echo done showing no vegetation (5) Anemia: Plan: * Preop hemoglobin 12.3 * Presenting hemoglobin during this hospitalization 9.4 * did drop to 6.6 on the afternoon of 12/11--> likely dilutional affect from fluids given perioperatively (with preop hgb low given recent surgery) * Exact etiology unclear but suspect multifactorial (? Rectus femoris muscle hematoma, postoperative anemia, and dilutional state) * Her Celebrex and aspirin held upfront given concern for rectus femoris muscle hematoma (patient is s/p gastric bypass and should NOT be on NSAIDS anyway) * F/U hgb 9.7 this afternoon (will start lovenox for DVT prophylaxis while in house) * This was likely contributing to her shortness of breath/dyspnea on exertion (see above) * Started on Iron supplementation (oral as opposed to IV given bacteremia) * Patient is on empiric PPI (6) Hematuria: Plan: * pt with rich hematuria * UA is grossly infected (leukocyte esterase and nitrite positive) * added rocephin empirically (patient with reported "PCN" allergy as a kid but "tolerated amoxil" in the past. I feel comfortably trying Rocephin) * culture data showing mixed colonies. Really only need 3 days for uncomplicated UTI- d/c tomorrow (7) Hypertension: Plan: * Hemodynamically stable at this time and renal function normal * continue lisinopril (8) Asthma: Plan: * Continue MARIO and Flonase spray (9) GERD (gastroesophageal reflux disease): Plan: * continue PPI (10) Sleep apnea: Plan: Sleep study performed 2019- was to have trial of CPAP with autoPAP - never completed, she has no device - reports no complications post operative with anesthesia and has never had CPAP on. - Recommend following up as outpatient to decrease prison morbidity Plan: plan of care to be D/W Dr. Calero. Further orders as warranted Admission and Anticipated Discharge Date Admission Date: December 09, 2021 Subjective Patient seen on daily rounds today. S/P I&D of the right hip. Having intermittent burning pain in the hip without alleviating or aggravating factors. "Feels like nerve pain" Otherwise, WBC downtrending. No additional fever spikes. HR much improvement. Denies F/C, CP, SOB, abd pain, N/V Nursing voices no c/c. Started on Rocephin for hematuria and grossly infected urine. Denies dysuria, frequency and hematuria resolved. Review of Systems Review of Systems: All systems reviewed and are unremarkable except as noted in HPI and below Denies fevers, chills, headache, nasal congestion, sore throat, cough, chest pain, shortness of breath, palpitations, orthopnea, PND, abdominal pain, nausea, vomiting, diarrhea, constipation, dysuria, hematuria, frequency, back pain, easy bruising or bleeding, skin lesions or rashes. Physical Exam Physical Exam: General: Resting comfortably in her hospital bed. She does not appear ill or toxic. NAD. HEENT: Head is AT/NC buccal mucosa is moist and pink Neck: No JVD. Negative hepatojugular reflex Cardiac: RRR but distant due to habitus. No wheezes, rales or rhonchi Lungs: Speaking full sentences on supplemental oxygen without W/R/R Abdomen: Normoactive X4. Soft and nontender in all quadrants. Extremities: Right hip with Hemovac in place. Large dressing overlying that is dry and intact Neuro: A&O X4 cranial nerves II through XII are grossly intact no focal neuro deficits Skin: See above Psych: Appropriate affect pleasant and cooperative Results & Data Results & Data ([facility]) Vital Signs (Past 12 Hours) Vital Signs Temp Pulse Pulse Resp BP BP Pulse Ox 12/12/21 07:13 37.0 C 95 H 16 136/85 95 12/12/21 02:30 37.1 C 84 18 119/77 97 12/12/21 02:29 37.1 C 84 18 119/77 97 12/12/21 01:30 37.2 C 87 16 118/76 95 12/12/21 01:00 37.3 C 89 16 121/72 96 12/12/21 00:30 37.4 C 99 H 18 117/76 94 12/12/21 00:15 37.1 C 99 H 18 132/80 100 12/11/21 23:55 37.2 C 93 H 93 H 18 122/81 122/81 96 12/11/21 23:15 37.2 C 84 18 123/74 100 12/11/21 22:15 37.2 C 87 18 126/84 94 12/11/21 21:45 37.1 C 81 18 128/82 95 12/11/21 21:15 37 C 92 H 16 129/81 93 12/11/21 20:45 37.4 C 94 H 16 138/83 91 12/11/21 20:30 36.9 C 90 18 125/85 95 12/11/21 20:12 37.4 C 88 16 105/64 95 12/11/21 20:09 37.4 C 88 16 105/64 95 Laboratory Results 12/12/21 14:14 12/12/21 08:43 PG Care Time/CCT Total # of Minutes Spent Total Time Spent with Patient: Total time spent is greater than 50% in coordination of care (as documented) at patient's floor/unit and/or counseling patient: Coding Level of Care Code 81087 Subseq Hosp Care Lvl 3 Diagnoses Prosthetic joint infection T84.50XA SOB (shortness of breath) R06.02 Tachycardia R00.0 Positive blood culture R78.81 Anemia D64.9 Hematuria R31.9 Hypertension I10 Asthma J45.909 GERD (gastroesophageal reflux disease) K21.9 Sleep apnea G47.30
[2021-12-12] MEDS: FERROUS SULFATE 325 MG TAB PO SCH ×2 (08:20→17:36)
[2021-12-12] MEDS: MULTIVITAMIN TAB PO SCH (08:21)
[2021-12-12] MEDS: busPIRone 7.5 MG TAB PO SCH ×2 (08:21→21:21)
[2021-12-12] MEDS: DOCUSATE SODIUM 100 MG CAP PO SCH ×2 (08:22→21:21)
[2021-12-12] MEDS: rifAMPin 300 MG CAPSULE PO SCH ×2 (08:22→21:21)
[2021-12-12] MEDS: PANTOprazole 40 MG TAB PO SCH (08:22)
[2021-12-12 08:57] LABS: Basophils # (auto) 0.02 K/uL (0-0.2); Basophils % (auto) 0.2 %; Eosinophils % (auto) 2.5 %; Hematocrit (blood only) 30.7 % (37-47); Hemoglobin 9.4 g/dL (12.0-16.0); Immature Granulocytes # (auto) 0.08 K/uL (0.00-0.02); Immature Granulocytes % (auto) 0.7 %; Lymphocytes # (auto) 1.68 K/uL (1.2-3.4); Lymphocytes % (auto) 14.2 %; Mean Corpuscular Hgb Conc 30.6 g/dL (32-36); Mean Corpuscular Volume 84.8 fL (80-100); Mean Platelet Volume 8.3 fL (7.4-10.4); Monocytes # (auto) 0.62 K/uL (0.11-0.59); Monocytes % (auto) 5.2 %; Neutrophils # (auto) 9.15 K/uL (1.4-6.5); Neutrophils % (auto) 77.2 %; Platelet Count 387 K/uL (130-400); RDW Standard Deviation 50.1 fL (36.4-46.3); Red Blood Count 3.62 M/uL (4.2-5.4); White Blood Count 11.85 K/uL (4.8-10.8)
[2021-12-12] MEDS: ASPIRIN 81 MG ECTAB PO SCH (08:58)
[2021-12-12 09:48] LABS: BUN Creatinine Ratio 12.1 (10-20); Calcium 8.3 mg/dl (8.5-10.1); Creatinine Clr Calc Pharmacy 132.7 ml/min; Est GFR (African American) 113.7 ml/min; Est GFR (Non-African American) 98.1 ml/min; Magnesium 1.8 mg/dl (1.7-2.4); Potassium 3.2 mmol/L (3.5-5.1)
--- NOTE | 2021-12-12 10:26 | Orthopedic Progress Note ---
Date of Service December 12, 2021 Assessment & Plan (1) Bacterial infection of the hip: Admission and Anticipated Discharge Date Admission Date: December 09, [address] Shelton yesterday. Infection appears to be only superficial. Wound was irrigated and debrided. After thorough cleaning, it appeared the infection did not violate the capsule of the hip joint. A needle was inserted into the hip joint under fluro guidance. Hip joint was noted to be a dry tap. No fluid obtained. PT/OT protocols - WBAT DVT prophylaxis - ASA bid Pain management as written. Cx done on 12/09/21 showing MSSA; Cx from yesterdays OR case (12/11/21) Showing Staph species. Currently on Daptomycin and Rocephin. Case discussed with Lilly De La Cruz PAC. They will be managing antibx at this time and will take the patient on their service. We will continue to follow pt as well. Dr. Shelton's help much appreciated in the care of this patient. DC planning - Pt will require IV antibx/picc line Subjective POD 1 Pt sitting in chair at bedside awake, alert. Having some soreness along the incisional area. States it is better today than previously. Pt able to stand up on her own and move to bedside without difficulty. Hemovac drain present but does not appear to be holding suction. No other complaints at this time. Physical Exam Physical Exam: Dressings C/D/I. Thigh soft. Calves soft, NT. NV intact. Toes mobile. Good DF/PF. Hip appears located. Results & Data ([facility]) Vital Signs (Past 12 Hours) Vital Signs Temp Pulse Pulse Resp BP BP Pulse Ox 12/12/21 07:13 37.0 C 95 H 16 136/85 95 12/12/21 02:30 37.1 C 84 18 119/77 97 12/12/21 02:29 37.1 C 84 18 119/77 97 12/12/21 01:30 37.2 C 87 16 118/76 95 12/12/21 01:00 37.3 C 89 16 121/72 96 12/12/21 00:30 37.4 C 99 H 18 117/76 94 12/12/21 00:15 37.1 C 99 H 18 132/80 100 12/11/21 23:55 37.2 C 93 H 93 H 18 122/81 122/81 96 12/11/21 23:15 37.2 C 84 18 123/74 100 Laboratory Results Laboratory Results WBC 11.85 K/uL (4.8-10.8) H 12/12/21 08:43 RBC 3.62 M/uL (4.2-5.4) L 12/12/21 08:43 Hgb 9.4 g/dL (12.0-16.0) L 12/12/21 08:43 Hct 30.7 % (37-47) L 12/12/21 08:43 MCV 84.8 fL (80-100) 12/12/21 08:43 MCH 26.0 pg (25-34) 12/12/21 08:43 MCHC 30.6 g/dL (32-36) L 12/12/21 08:43 RDW Std Deviation 50.1 fL (36.4-46.3) H 12/12/21 08:43 RDW Coeff of Taylor 16.0 % (11.5-14.5) H 12/12/21 08:43 Plt Count 387 K/uL (130-400) 12/12/21 08:43 MPV 8.3 fL (7.4-10.4) 12/12/21 08:43 Immature Gran % (Auto) 0.7 % 12/12/21 08:43 Neut % (Auto) 77.2 % 12/12/21 08:43 Lymph % (Auto) 14.2 % 12/12/21 08:43 Bledsoe % (Auto) 5.2 % 12/12/21 08:43 Eos % (Auto) 2.5 % 12/12/21 08:43 Baso % (Auto) 0.2 % 12/12/21 08:43 Neut # (Auto) 9.15 K/uL (1.4-6.5) H 12/12/21 08:43 Lymph # (Auto) 1.68 K/uL (1.2-3.4) 12/12/21 08:43 Bledsoe # (Auto) 0.62 K/uL (0.11-0.59) H 12/12/21 08:43 Eos # (Auto) 0.30 K/uL (0-0.5) 12/12/21 08:43 Baso # (Auto) 0.02 K/uL (0-0.2) 12/12/21 08:43 Immature Gran # (Auto) 0.08 K/uL (0.00-0.02) H 12/12/21 08:43 ESR 62 mm/hr (0-30) H 12/10/21 05:42 PT 10.8 Seconds (9.0-12.0) 12/09/21 10:13 INR 1.1 (0.9-1.1) 12/09/21 10:13 Sodium 138 mmol/L (136-145) 12/12/21 08:43 Potassium 3.2 mmol/L (3.5-5.1) L 12/12/21 08:43 Chloride 106 mmol/L (98-107) 12/12/21 08:43 Carbon Dioxide 26 mmol/L (21-32) 12/12/21 08:43 Anion Gap 6 (3-11) 12/12/21 08:43 BUN 8 mg/dl (6-23) 12/12/21 08:43 Creatinine 0.66 mg/dl (0.6-1.2) 12/12/21 08:43 Est Cr Clr Drug Dosing 132.7 ml/min 12/12/21 08:43 Est GFR ( Amer) 113.7 ml/min 12/12/21 08:43 Est GFR (Non-Af Amer) 98.1 ml/min 12/12/21 08:43 BUN/Creatinine Ratio 12.1 (10-20) 12/12/21 08:43 Glucose 109 mg/dl (70-99(Fasting)) H 12/12/21 08:43 Lactate 1.5 mmol/L (0.4-2.0) 12/09/21 10:13 Calcium 8.3 mg/dl (8.5-10.1) L 12/12/21 08:43 Magnesium 1.8 mg/dl (1.7-2.4) 12/12/21 08:43 Total Bilirubin 0.5 mg/dl (0.2-1.0) 12/09/21 10:13 Direct Bilirubin 0.1 mg/dl (0-0.2) 12/09/21 10:13 AST 12 U/L (13-39) L 12/09/21 10:13 ALT 9 U/L (7-52) 12/09/21 10:13 Alkaline Phosphatase 154 U/L (34-104) H 12/09/21 10:13 Troponin I < 0.03 ng/ml (0-0.04) 12/09/21 10:13 C-Reactive Protein 13.15 mg/dl (0-0.5) H 12/10/21 05:42 Total Protein 7.5 gm/dl (6.0-8.3) 12/09/21 10:13 Albumin 3.8 gm/dl (3.4-5.0) 12/09/21 10:13 Lipase 6 U/L (11-82) L 12/09/21 10:13 Procalcitonin 0.05 ng/ml (0-0.5) 12/09/21 10:13 Urine Color Laverne 12/11/21 Unknown Urine Appearance Cloudy (Clear) A 12/11/21 Unknown Urine pH 5.0 (4.5-7.5) 12/11/21 Unknown Ur Specific [place] 1.030 (1.000-1.030) 12/11/21 Unknown Urine Protein 1+ (Negative) H 12/11/21 Unknown Urine Glucose (UA) Negative (Negative) 12/11/21 Unknown Urine Ketones Trace (Negative) H 12/11/21 Unknown Urine Blood Trace (Negative) H 12/11/21 Unknown Urine Nitrite Positive (Negative) A 12/11/21 Unknown Urine Bilirubin 1+ (Negative) H 12/11/21 Unknown Urine Urobilinogen Negative (Negative) 12/11/21 Unknown Ur Leukocyte Esterase 1+ (Negative) H 12/11/21 Unknown Urine WBC (Auto) 1-5 /hpf (0-5) 12/11/21 Unknown Urine RBC (Auto) 0-4 /hpf (0-4) 12/11/21 Unknown U Hyaline Cast (Auto) 1-5 /lpf (0-5) 12/11/21 Unknown U Epithel Cells (Auto) >30 /lpf (0-5) H 12/11/21 Unknown Urine Bacteria (Auto) Negative (Negative) 12/11/21 Unknown Ur Renal Epithelial Cell Not Reportable 12/11/21 Unknown Urine Crystals Not Reportable 12/11/21 Unknown Calcium Oxalate Crystal Present (None Prsent) A 12/11/21 Unknown Granular Casts 10-20 /lpf (0) H 12/09/21 11:48 Urine Mucus Present (None Prsent) A 12/11/21 Unknown SARS-CoV-2, RNA, NAAT NEGATIVE (NEGATIVE) 12/09/21 10:28 Bld Cult Staph aureus PCR Negative (Negative) 12/09/21 10:15 Blood Culture MRSA PCR Negative (Negative) 12/09/21 10:15 Blood Type O Positive 12/11/21 11:28 Antibody Screen NEGATIVE 12/11/21 11:28 Crossmatch See Detail 12/11/21 11:[address] 12/09/21 11:16 CT hip RT w con HISTORY: 56 years-old Female post op infection acute right hip pain with soft tissue swelling. Prior right total joint arthroplasty approximately one month prior COMPARISON: None TECHNIQUE: Multiple axial CT images of the right hip were obtained following the intravenous administration of 95 mL Optiray 320. A dose lowering technique was used consistent with the principals of ALARA. FINDINGS: No acute process of the imaged intrapelvic structures. Decompressed urinary bladder with wall thickening. Mildly enlarged right inguinal chain lymph nodes measure up to 11 mm. Partially imaged fluid collection with mild peripheral enhancement involves the deep lateral subcutaneous tissues of the right hip measuring over 12 cm in craniocaudal dimension and measuring up to 4.9 x 6.3 cm in AP and transverse dimensions. The margin of this collection abuts the lateral myofascial tensor fascia carlos. There is subcutaneous edema with associated skin thickening. Additionally, there is ill-defined decreased attenuation/heterogeneity within the proximal fibers of the rectus femoris/proximal tensor fascia carlos measuring up to 2.2 x 3.297 series 2. No joint effusion identified. No acute fracture, dislocation or opaque foreign body. Satisfactory alignment of the right hip total joint arthroplasty. No unexpected opaque foreign body. IMPRESSION: 1. Satisfactory alignment of the right hip total joint arthroplasty. No acute fracture or dislocation. 2. Cellulitis of the right upper thigh with partially imaged subcutaneous fluid collection measuring over 12 cm in length suggestive of a postoperative seroma versus abscess. 3. Ill-defined heterogeneity with decreased attenuation of the proximal rectus femoris muscle may reflect intramuscular hematoma, or myositis/developing intramuscular abscess. 4. No joint effusion identified. 5. Right inguinal chain adenopathy, likely reactive. ACT 112: Negative or not required by law. The above report was generated using voice recognition software. It may contain grammatical, syntax or spelling errors. Electronically signed by: Joshua Saez M.D. 12/09/2021 12:10 PM
[2021-12-12] MEDS: HYDROmorphone INJ 0.5 MG/0.5 ML SYR IV PRN (11:36)
[2021-12-12] MEDS: DULoxetine HCL 20 MG CAP PO SCH (12:31)
[2021-12-12] MEDS ORDERED: POLYETHYLENE (MIRALAX) 17 GM PACK PO PRN (12:51)
[2021-12-12] MEDS: POTASSIUM CHLORIDE CRTAB 20 MEQ TABCR PO SCH ×2 (13:08→17:36)
[2021-12-12] MEDS: DAPTOmycin 525 MG in SYRINGE 0 ML IV SCH (13:41)
[2021-12-12] MEDS: cefTRIAXone SODIUM 2,000 MG in DEXTROSE 5% 50 ML IV SCH (13:41)
[2021-12-12 14:28] LABS: Hematocrit (blood only) 31.7 % (37-47); Hemoglobin 9.7 g/dL (12.0-16.0)
[2021-12-12] MEDS ORDERED: oxyCODONE HCL IR 5 MG TAB (IMMEDIATE RELEASE) PO PRN (16:18)
[2021-12-12] MEDS: SENNA 8.6 MG TAB PO SCH (21:21)
[2021-12-12] MEDS: ACETAMINOPHEN 500 MG TAB PO PRN (21:24)
[2021-12-13] MEDS: PANTOprazole 40 MG TAB PO SCH (05:38)
[2021-12-13] MEDS ORDERED: CETIRIZINE HCL 10 MG TABLET PO ONE (06:11)
[2021-12-13 06:48] LABS: Basophils # (auto) 0.02 K/uL (0-0.2); Basophils % (auto) 0.2 %; Eosinophils # (auto) 0.34 K/uL (0-0.5); Eosinophils % (auto) 3.6 %; Hematocrit (blood only) 29.8 % (37-47); Hemoglobin 9.2 g/dL (12.0-16.0); Immature Granulocytes # (auto) 0.08 K/uL (0.00-0.02); Immature Granulocytes % (auto) 0.8 %; Lymphocytes # (auto) 1.31 K/uL (1.2-3.4); Lymphocytes % (auto) 13.8 %; Mean Corpuscular Hemoglobin 26.4 pg (25-34); Mean Corpuscular Hgb Conc 30.9 g/dL (32-36); Mean Corpuscular Volume 85.4 fL (80-100); Mean Platelet Volume 8.6 fL (7.4-10.4); Monocytes # (auto) 0.76 K/uL (0.11-0.59); Neutrophils # (auto) 6.97 K/uL (1.4-6.5); Neutrophils % (auto) 73.6 %; Platelet Count 448 K/uL (130-400); RDW Coefficient of Variation 16.1 % (11.5-14.5); RDW Standard Deviation 50.5 fL (36.4-46.3); Red Blood Count 3.49 M/uL (4.2-5.4); White Blood Count 9.48 K/uL (4.8-10.8)
[2021-12-13 07:42] LABS: Albumin Level 3.1 gm/dl (3.4-5.0); BUN Creatinine Ratio 10.3 (10-20); Bilirubin,Total 0.5 mg/dl (0.2-1.0); Calcium 8.2 mg/dl (8.5-10.1); Est GFR (African American) 118.6 ml/min; Est GFR (Non-African American) 102.3 ml/min; Globulin 3.2 gm/dl (2.5-4.0); Magnesium 1.9 mg/dl (1.7-2.4); Potassium 3.7 mmol/L (3.5-5.1); Total Protein 6.3 gm/dl (6.0-8.3)
[2021-12-13] MEDS: ACETAMINOPHEN 500 MG TAB PO PRN (08:41)
[2021-12-13] MEDS: busPIRone 7.5 MG TAB PO SCH (08:41)
[2021-12-13] MEDS: DOCUSATE SODIUM 100 MG CAP PO SCH (08:42)
[2021-12-13] MEDS: FERROUS SULFATE 325 MG TAB PO SCH ×2 (08:42→18:01)
[2021-12-13] MEDS: MULTIVITAMIN TAB PO SCH (08:43)
[2021-12-13] MEDS: rifAMPin 300 MG CAPSULE PO SCH (08:43)
[2021-12-13] MEDS ORDERED: ENOXAPARIN INJ 40 MG/0.4 ML SYR SQ SCH (09:00)
[2021-12-13] MEDS ORDERED: FAMOTIDINE 20MG IV PUSH 20 MG/5 ML SYR IV PRN (10:20)
[2021-12-13] MEDS ORDERED: methylPREDNISolone 125 MG in SYRINGE 0 ML IV PRN (10:20)
[2021-12-13] MEDS ORDERED: diphenhydrAMINE 50 MG/ML VIAL IV PRN (10:20)
[2021-12-13] MEDS ORDERED: PENICILLIN V POTASSIUM SUSP 250 MG/5 ML 200 ML PO ONE ×2 (10:30→11:30)
--- NOTE | 2021-12-13 10:38 | Orthopedic Progress Note ---
Date of Service December 13, 2021 Assessment & Plan (1) Bacterial infection of the hip: Plan: POD 2 I/D Right hip wound s/p R SREE. Infection superficial. Did not appear to go into the joint. Cx from OR showing Staph species. Cx of drainage done 12/09 showing MSSA. An tibiotics (Nafcillin) being arranged by Med Service. Picc line ordered. 4-6 weeks IV antibx. PT/OT protocol - WBAT Daily dressing changes. Discussed with patient about plans for home dressing changes. DVT prophylaxis - continue ASA 81mg bid upon dc until seen in office by Dr. Parker. Pain management as written. DC planning - Home with Home Health for IV antibx. CM arranging. Admission and Anticipated Discharge Date Admission Date: December 09, 2021 Subjective Postop day 2 Patient sitting up in bed awake and alert. No complaints this morning. Pain is controlled. States she had a little bit of drainage this morning from the dressing. Her drain had inadvertently pulled itself out overnight. Pt states she feels better overall. Physical Exam Physical Exam: Dressing removed. The wound is well approximated. No erythema noted. Mild swelling. Scant drainage noted coming from the wound after dressing removal. New dressing applied. Tegaderms used. Will see if they hold well. May need to revert to regular dressing if this dressing type does not hold well. Calves soft, NT. NV intact. Results & Data ([facility]) Vital Signs (Past 12 Hours) Vital Signs Temp Pulse Resp BP BP Pulse Ox 12/13/21 07:10 37 C 88 18 150/93 H 95 12/12/21 22:37 37 C 101 H 18 149/93 H 90
[2021-12-13] MEDS: DULoxetine HCL 20 MG CAP PO SCH (12:27)
[2021-12-13] MEDS ORDERED: CIPROFLOXACIN 500 MG TAB PO SCH (14:30)
[2021-12-13] MEDS: NAFCILLIN SODIUM 2,000 MG in DEXTROSE 5% 100 ML IV SCH ×2 (15:48→17:12)
[2021-12-13] MEDS: cefTRIAXone SODIUM 2,000 MG in DEXTROSE 5% 50 ML IV SCH (16:35)
--- NOTE | 2021-12-13 18:28 | Discharge Summary ---
Date of Service December 13, 2021 Admission HPI Per Admitting Provider 56 year old female with PMHx significant for GERD, asthma, COPD, JONH, PVD, HTN who presented to the ED today with complaint of worsening right hip pain. Patient is well known to our practice. About 1 mo ago she underwent a right SREE at in [place] by Dr. Hal Parker. She had an uneventful post operative course.About a week ago patient started to feel ill. She has been having fevers and chills. She took an at home COVID test which was questionably positive. She then started to have increased right hip pain and pain with WB. She noticed redness and induration over the past couple of days. She presented to the ED and was noted to have a temp of 38.1 and elevated white count to 15k. CT scan was obtained demonstrating findings of cellulitis as well as a large fluid collection consistent with seroma vs abscess. We were asked to see the patient due to concern for infected right total hip. Her COVID test in ED was negative. Patient denies headaches, sweats, double vision, blurred vision, cough, sore throat, dysphagia, chest pain, sob, wheezing, n/v/d/c, numbness, tingling, fatigue, urinary symptoms, mood disorders. ROS positive for right hip pain and fever/chills.Allergies Principal Diagnosis 1. 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 Anemias/p transfusion 3. Positive blood culturepresumed contaminant 4. Urinary tract infection with hematuria Discharge Exam General: Resting comfortably in her hospital bed. She does not appear ill or toxic. NAD. HEENT: Head is AT/NC buccal mucosa is moist and pink Neck: No JVD. Negative hepatojugular reflex Cardiac: RRR but distant due to habitus. No wheezes, rales or rhonchi Lungs: Speaking full sentences on supplemental oxygen without W/R/R Abdomen: Normoactive X4. Soft and nontender in all quadrants. Extremities: Right hip with Hemovac in place. Large dressing overlying that is dry and intact Neuro: A&O X4 cranial nerves II through XII are grossly intact no focal neuro deficits Skin: See above Psych: Appropriate affect pleasant and cooperative Discharge Data Allergies Allergy/AdvReac Type Severity Reaction Status Date / Time enalapril Allergy Intermediate DYSPEPSIA Verified 12/09/21 12:02 nickel Allergy Mild Blister Verified 12/09/21 12:02 metformin AdvReac Mild Diarrhea Verified 12/09/21 12:02 Consultations 12/09/21 12:45 ED Decision to Admit Stat 12/09/21 14:46 ED Decision to Admit Stat 12/09/21 18:50 Consult Internal Medicine Routine 12/10/21 12:10 Consult Orthopedic Surgery Routine Procedures Performed Operation Date: 12/11/21 08:45 Actual Procedures p Right Hip Irrigation and Debridement Anterior Approach(Right) - Enrique Shelton DO Ordered Studies 12/09/21 11:16 CT hip RT w con Stat 12/10/21 13:35 CT angio chest PE protocol Stat 12/11/21 12:00 FL hip RT 1V Routine Hospital Course (1) Prosthetic joint infection: * Elective right SREE done 1 month [employer] at [facility] by Dr. Parker * Approximately 10 days [employer], developed flulike symptoms along with increased right hip pain, redness and swelling * WBC elevated at 14.9. ESR elevated at 62. CRP elevated 13.15. Patient tachycardic at 122. Lactic acid level normal at 1.5. * CT of the hip showed a 12 cm fluid collection concerning for seroma versus abscess in addition to questionable hematoma versus developing abscess of the rectus femoris muscle * Empirically started on daptomycin. * Culture data (from the right hip) showing MSSA. * is s/p I&D (12/11)-- ortho reports abscess was superficial but that a washout of the joint space was done prophylactically * 12/12: she seemed to have defervesced. HR and WBC improving * Transitioned to nafcillin. Patient has a reported allergy to penicillin but has seen Dr. Mcclain in the past and received penicillin allergy testing. Office was called and this was confirmed. Done in 2012 and negative for penicillin allergy. In addition, patient had a penicillin challenge test today where she was given 25 mg of Pen-VK with reassessment in 1 hour. An additional 250 mg dose was given with reassessment in 1 hour. Patient tolerated both of these. She was subsequently started on nafcillin for which she tolerated. * discharge to home today with continued nafcillin (12 g infused continuously every 24 hoursgiven through an infusion pump). This can be utilized and provided at home. Last dose of IV antibiotics due 01/20 for a total of 6 weeks * Rifampin added as staph aureus has a tendency to create a biofilm (given indwelling hardware) * Patient will need 6 weeks of IV antibiotics with 3 weeks of rifampin * PICC line placed today--there was initial concern that her blood cultures were positive but they have since come back showing coag negative staph speciesnot lugdunensis and only positive for 1 set. I suspect this is a contaminant. At any rate, repeat blood cultures were drawn and are negative thus PICC line subsequently placed * ASA placed on board by ortho for DVT prophylaxis; however, with her h/o Gastric bypass--will not break down the EC and shouldn't use plain ASA given risk of ulcer. H/H stable thus will utilize lovenox for DVT prophlaxis while in house. Will not need additional prophylaxis upon D/C as initial surgery 30+ days ago * appreciate assistance provided by ortho: hemovac inadvertently removed by citlaly nascimento. Dressing dry and intact. Patient to follow-up with Dr. Parker as an outpatient * Weekly lab draws have been ordered (including BMP, CBC, ESR, and CRP). If remains stable in 1 week, can consider transition to every 2 weeks. Labs can be drawn from PICC line with appropriate waste (2) Positive blood culture: * Initially it was looking as if patient's blood cultures were showing staph aureus. With the positive aspirate from the right hip growing MSSA, it was thought that she had associated bacteremia with this * 1 out of 2 sets of her blood cultures were positive (2/4 tubes-- but same stick)--> a coag negative staph species not lugdunensis. * This is presumed a contaminated specimen but in any rate, she is receiving 6 weeks of IV antibiotic * Echo done showing no vegetation (3) SOB (shortness of breath): * noted on hospital day #1 and now resolved * CTA done showing no evidence of PE/intrapulmonary process * likely related to asthma/JONH and perhaps complicated by anemia (however, h/h stable today and no longer c/o SOB) (4) Tachycardia: * sinus tachycardia and likely related to #1 and compensatory mechanisms/catecholamine response * Overall, heart rate improved (5) Anemia: * Preop hemoglobin 12.3 * Presenting hemoglobin during this hospitalization 9.4 * did drop to 6.6 on the afternoon of 12/11--> likely dilutional affect from fluids given perioperatively (with preop hgb low given recent surgery) * Exact etiology unclear but suspect multifactorial (? Rectus femoris muscle hematoma, postoperative anemia, and dilutional state) * Her Celebrex and aspirin held upfront given concern for rectus femoris muscle hematoma (patient is s/p gastric bypass and should NOT be on NSAIDS anyway) * F/U hgb has remained stable (9.2 on day of D/C) * This was likely contributing to her shortness of breath/dyspnea on exertion (see above) * Started on Iron supplementation -- continue x 30 days. Lengthy discussion with patient regarding side effects of constipation * Patient is on empiric PPI * Patient receiving weekly lab draws for her prosthetic joint infection. CBC is included which will also trend her hemoglobin. To follow-up with PCP regarding this (6) Hematuria: * pt with rich hematuria * UA grossly infected (leukocyte esterase and nitrite positive) * Empirically started Rocephin which will be converted to Cipro for 1 additional day for uncomplicated UTI * culture data showing mixed colonies * Hematuria has since resolved (7) Hypertension: * Hemodynamically stable at this time and renal function normal * continue lisinopril (8) Asthma: * Continue MARIO and Flonase spray (9) GERD (gastroesophageal reflux disease): * continue PPI (10) Sleep apnea: Sleep study performed 2018- was to have trial of CPAP with autoPAP - never completed, she has no device - reports no complications post operative with anesthesia and has never had CPAP on. - Recommend following up as outpatient to decrease intermediate card tender morbidity plan of care to be D/W Dr. Calero. Further orders as warranted Discharge to home today with continued IV antibiotic therapy Total Time Total Time Spent Total Time Spent (In Minutes): 60 minutes including time spent with patient, discussion with attending provider, discussion with case management, coordination of care and preparation of documentation Discharge Plan Discharge Items Patient Disposition: Home - Home Health Services Reason For Visit: INFECTED INCISION POST SURGERY Discharge Diagnosis: 1. Prosthetic Joint Infection- Right Hip (MSSA) 2. Anemia- s/p transfusion and improved 3. UTI Activity: Resume your previous activity Non-emergency contact: Primary Care Provider and Specialist Call non-emergency contact if: you have any medication questions, your pain is not controlled, your temperature is above 101 and your wound has increased redness Follow-up/Referrals: Lety Fonseca MD [Primary Care Provider] - 12/21/21 11:15 am (With Rodrigo Talavera) Bill Parker MD [Outside Practitioners] - Diet: Heart Healthy Addtl Attending Provider Instructions: Diet: health healthy Activity: weight bear as tolerated Recommendations: - you will be on IV antibiotic therapy (Nafcillin) x 6 weeks-- for this pro sthetic joint infection - in addition, you need to complete 3 weeks or Rifampin to help prevent a biofim (as discussed) - you required a blood transfusion and since, your blood count looks great - I do recommend iron supplementation daily x 30days - no longer need to be on Aspirin (as your previous surgery was over 1 month ago) - PICC line to remain in place until antibiotics completed - PICC line can be removed by PCP - you need an additional 2 days of antibiotics (orally) for UTI (Cipro- twice daily with 1 dose needed tonight and then 2 doses tomorrow and then stop) - given the need for longterm antibiotics, this can eradicate the GOOD bacteria in your gut. For this, I advise a probiotic (Lactobacillis) - follow up with PCP: 7-10 days - follow up with Dr. Parker - follow wound recommendations as outlined by Ortho Addtl Financial Investment Adviser Provider Instructions: Ambulate as tolerated Daily dressing changes as discussed. If Tegaderm dressings not working well. Return to regular 4x4 gauze, ABD's, and medical tape type dressing. Continue daily dressing changes for one week. If the wound is remaining dry, you may change the dressing every other day however continue to keep the wound covered until seen back in the office for recheck. Follow up with Dr. Parker in 10-14 days from the day of surgery. [phone] Pending Studies at Discharge: No Stand-Alone Forms: [facility] Medications and DC Order Prescriptions: New ciprofloxacin HCl 500 mg Tablet 500 mg PO BID Qty: 3 RF: 0 rifampin 300 mg Capsule 300 mg PO BID Qty: 35 RF: 0 oxycodone 5 mg Tablet 5 - 10 mg PO Q4H PRN (Reason: pain) Qty: 36 RF: 0 ferrous sulfate 325 mg (65 mg iron) tablet 325 mg PO DAILY Qty: 30 RF: 0 nafcillin in dextrose iso-osm 2 gram/100 mL piggyback 12 g IV Q4H Qty: 1200 RF: 0 Lactobacillus acidophilus 1 billion cell capsule 100 mg PO BID Qty: 60 RF: 1 Continued albuterol sulfate [Ventolin HFA] 90 mcg/actuation HFA aerosol inhaler 2 puff INH Q6H PRN (Reason: shortness of breath or wheezing) Qty: 6.7 RF: 3 lisinopril 20 mg tablet 20 mg PO QAM Qty: 90 RF: 1 acetaminophen [Tylenol Extra Strength] 500 mg tablet 1,000 mg PO BID RF: 0 pantoprazole 40 mg tablet,delayed release (DR/EC) 40 mg PO QAM Qty: 30 RF: 3 cetirizine [Zyrtec] 10 mg tablet 10 mg PO QAM RF: 0 fluticasone propionate 50 mcg/actuation spray,suspension 2 sprays INTNAS QAM PRN (Reason: Congestion) RF: 0 tramadol 50 mg tablet 50 mg PO BID PRN (Reason: pain) Qty: 7 RF: 0 duloxetine 20 mg capsule,delayed release(DR/EC) 20 mg PO QDL RF: 0 buspirone 15 mg tablet 7.5 mg PO BID RF: 0 Discontinued celecoxib [Celebrex] 200 mg capsule 200 mg PO BID RF: 0 aspirin 81 mg tablet,delayed release (DR/EC) 81 mg PO BID RF: 0 Discharge Orders: Discharge Order (Routine); Ordered 12/13/21 Ordered By: Tiesha De La Cruz Admission Data Admit Date/Time: 12/09/21 15:44 Attending Provider: Seth Calero Admit Provider: Tang Ferreira Primary Care Provider: Lety Fonseca V. Other Providers: Bryn Gramajo ; Tang Ferreira ; Enrique Shelton ; [facility] Other Interventions: Discharge Summary Assessment (RN) Last Done: 12/13/21 16:40 Supervising Physician Co-Signing Physician Notes Patient seen and examined, chart reviewed, case discussed with Lilly De La Cruz PA-C and I agree with the assessment and plan as above except as otherwise noted General: A&Ox3. NAD. Cooperative. HEENT: Atraumatic, normocephalic. Vision/hearing grossly intact. Pulm: CTAB A&P. -wheezes, -rales, -rhonchi. Symmetrical chest rise. No increase in work of breathing. No respiratory distress. Cardiac: RRR, -mrg. Radial pulses intact and symmetrical. Abdominal: Nontender, nondistended, soft. BS present. Extremities: Right lower extremity with postsurgical dressing in place, C/D/I. Sensation intact to soft touch in ankles and feet bilaterally, no pitting edema. PT pulses intact bilaterally. Ankle dorsiflexion/plantarflexion intact bilaterally, upper extremity strength intact and symmetrical. Labs and images reviewed Prosthetic joint infection MSSA, no vegetation on TTE. Discharged to continue nafcillin as above through 01/20, total course 6 weeks. Will require weekly lab follow-up as above. PICC line placed prior to discharge. Home health available in meeting with patient morning following discharge. Coding Level of Care Code D/C DAY MANAGEMENT >30 MINS Diagnoses Prosthetic joint infection T84.50XA SOB (shortness of breath) R06.02 Tachycardia R00.0 Positive blood culture R78.81 Anemia D64.9 Hematuria R31.9 Hypertension I10 Asthma J45.909 GERD (gastroesophageal reflux disease) K21.9 Sleep apnea G47.30
--- NOTE | 2021-12-26 05:39 | Coding Query ---
DEBRIDEMENT DOCUMENTATION To promote full compliance with coding requirements relating to patient care, physician participation is requested in all cases of safety patrol officer uncertainty. Please assist us with the question(s) below: Please place an X in the parenthesis (x). If other, please document the finding: (12/11 OP Right Irrigation and Debridement for Superficial Infection of Right Hip. ) Type of Debridement: (X ) Excisional Debridement- Cutting away necrotic, devitalized tissue or slough to the level of viable tissue using a sharp instrument (i.e. scalpel, scissors, etc.) ( ) Non Excisional Debridement- The removal of necrotic, devitalized tissue or slough by means of scraping, mechanical brushing, flushing, or washing (i.e. irrigation,whirlpool);minor removal of loose fragments. ( ) Other (please specify): Instrument Used: ( X) Scissors (X ) Scalpel ( ) Curette ( ) Other (please specify): Depth of Debridement: ( ) Skin ( ) Skin and Subcutaneous Tissue ( X) Skin, Subcutaneous Tissue and Muscle ( ) Skin, Subcutaneous Tissue, Muscle and Bone ( ) Other (please specify): Please Specify the Size of Debridement in cm2: 12 cm2 Thank you Terence CARTWRIGHT [facility]ITALAndi
== END 2021-12-13 18:26 | disposition home health service (06) | DRG 857 ==
LOC: ED 09:45 → SUATTDRO 15:44 → EDINP 15:44 → 3E 19:00
PROC: M.IDHIP (2021-12-11 08:45)